=== PATIENT | male | born 1955 | race Caucasian/White ===

== ENCOUNTER 2017-05-14 22:54 | Observation (INO) ==
--- NOTE | 2017-05-14 23:02 | Emergency Department Note ---
Disposition Clinical Impression: CHF (congestive heart failure), Chest pain Disposition: Admitted As Inpatient Condition: Fair Time of Disposition: 02:01 General Adult HPI - General Chief complaint: ED General Medical Stated complaint: high bp swollen ankles salome Time Seen by Provider: 05/14/17 23:01 Source: patient Mode of arrival: ambulatory Limitations: no limitations Nursing Notes Reviewed: Yes Vital Signs Reviewed: Yes - History of Present Illness HPI Narrative: Patient presents to the ED with the chief complaint of high blood pressure, chest pain, shortness of breath and swollen legs. Patient has a history of congestive heart failure, atrial flutter. States that this was recently diagnosed in July 2016. He is on Xarelto , Lasix, blood pressure medication. States he has had 3 ablations for the a flutter. Presenting today for a 3 day history of gradually increasing shortness of breath and leg swelling. States that he is also had some chest heaviness and discomfort intermittently over the last 2 days, nonradiating, worse with exertion. States that he felt like this previously with CHF and wanted to catch it early. Recently moved from [facility] and is now located near [place]. Pain Scale: 7 - Related Data Allergies Allergy/AdvReac Type Severity Reaction Status Date / Time aspirin [ASA] Allergy See Verified 05/14/17 23:00 Comments NSAIDS (Non-Steroidal Allergy See Verified 05/14/17 23:00 Anti-Inflamma Comments Constitutional: Denies: fever Eyes: Denies: vision change Cardiovascular: Reports: chest pain, dyspnea on exertion, edema, paroxysmal nocturnal dyspnea Respiratory: Reports: dyspnea Gastrointestinal: Denies: nausea Musculoskeletal: Denies: back pain Neurological: Denies: headache Past Medical History - Past Medical History Attestation: Yes The following information was validated with the patient. Source: patient Medical history: Reports: CHF, hypertension - Social History Smoking Status: Current every day smoker Alcohol use: Reports: none Drug use: Reports: none Physical Exam - General Limitations: no limitations General appearance: alert, in no apparent distress - Head Head exam: atraumatic, normocephalic, normal inspection - Eye Eye exam: Present: normal appearance, PERRL, EOMI - ENT ENT exam: normal exam, normal oropharynx, mucous membranes moist - Neck Neck exam: Present: normal inspection, full ROM, trachea midline - Chest Chest inspection: Present: normal inspection, symmetric chest wall rise - Respiratory Respiratory exam: Present: other (Decreased breath sounds bilateral bases). Absent: respiratory distress - Cardiovascular Cardiovascular exam: Present: regular rate, normal rhythm, normal heart sounds - Abdominal Exam Abdominal exam: Present: soft, distention. Absent: guarding, rebound, normal bowel sounds - Extremities Exam Extremities exam: Present: normal capillary refill, pedal edema (2+ bilateral) - Neurological Exam Neurological exam: Present: alert, oriented X3 - Psychiatric Psychiatric exam: Present: normal affect, normal mood - Skin Skin exam: Present: warm, dry, intact, normal color Course Course Narrative: 61-year-old male presenting with hypertension, potential CHF exacerbation. We will get labs, x-ray and EKG. Will admit. Vital Signs Temperature 97.6 F 05/14/17 22:56 Pulse Rate 71 05/14/17 22:56 Respiratory Rate 20 05/14/17 22:56 Blood Pressure 203/117 05/14/17 22:56 O2 Sat by Pulse Oximetry 96 05/14/17 22:56 Temperature 97.6 F 05/15/17 03:18 Pulse Rate 55 05/15/17 03:18 Respiratory Rate 16 05/15/17 03:18 Blood Pressure 170/91 05/15/17 03:18 O2 Sat by Pulse Oximetry 95 05/15/17 03:28 Oxygen Delivery Oxygen Delivery Room Air Medical Decision Making - Medical Records Medical records reviewed: Yes I reviewed the patient's medical records. - Lab Data Lab results reviewed: Yes I reviewed the patient's lab results. Result diagrams: 05/14/17 23:20 05/14/17 23:20 Lab Results 05/14/17 05/14/17 05/14/17 Range/Units 23:20 23:20 23:20 WBC 7.3 (4.3-11.1) K/mcL RBC 5.33 (4.19-5.50) M/mcL Hgb 16.0 (12.9-16.9) g/dL Hct 44.9 (37.5-50.1) % MCV 84.2 (83.0-100.0) fL MCH 30.0 (28.0-33.3) pg MCHC 35.6 H (31.6-35.5) g/dL RDW 13.8 (11.5-14.5) % Plt Count 157 (140-400) K/mcL MPV 11.0 (9.4-12.4) fL Immature Gran % 0.5 (0-4) % Seg Neutrophils % 57.5 % Lymphocytes % 31.1 % Monocytes % 8.0 % Eosinophils % 2.1 % Basophils % 0.8 % Neutrophils # 4.2 (1.6-8.9) K/mcL Lymphocytes # 2.3 (0.6-4.6) K/mcL Monocytes # 0.6 (0.0-1.3) K/mcL Eosinophils # 0.2 (0.0-0.6) K/mcL Basophils # 0.1 (0.0-0.2) K/mcL PT 13.1 H (9.4-12.1) Seconds INR 1.2 APTT 35.4 (26.0-36.0) Seconds Sodium 140 (136-145) mEq/L Potassium 4.1 (3.5-4.5) mEq/L Chloride 104 (98-109) mEq/L Carbon Dioxide 27 (19-29) mEq/L BUN 15 (8-26) mg/dL Creatinine 0.97 (0.72-1.25) mg/dL Est GFR ( Amer) > 60 (> 60) Est GFR (Non-Af Amer) > 60 (> 60) BUN/Creatinine Ratio 15 (6-26) Glucose 231 H (70-99) mg/dL Calculated Osmolality 298 (280-300) Calcium 9.6 (8.6-10.8) mg/dL Troponin I (0-0.03) ng/mL B-Natriuretic Peptide (0-100) pg/mL 05/14/17 05/14/17 Range/Units 23:20 23:20 WBC (4.3-11.1) K/mcL RBC (4.19-5.50) M/mcL Hgb (12.9-16.9) g/dL Hct (37.5-50.1) % MCV (83.0-100.0) fL MCH (28.0-33.3) pg MCHC (31.6-35.5) g/dL RDW (11.5-14.5) % Plt Count (140-400) K/mcL MPV (9.4-12.4) fL Immature Gran % (0-4) % Seg Neutrophils % % Lymphocytes % % Monocytes % % Eosinophils % % Basophils % % Neutrophils # (1.6-8.9) K/mcL Lymphocytes # (0.6-4.6) K/mcL Monocytes # (0.0-1.3) K/mcL Eosinophils # (0.0-0.6) K/mcL Basophils # (0.0-0.2) K/mcL PT (9.4-12.1) Seconds INR APTT (26.0-36.0) Seconds Sodium (136-145) mEq/L Potassium (3.5-4.5) mEq/L Chloride (98-109) mEq/L Carbon Dioxide (19-29) mEq/L BUN (8-26) mg/dL Creatinine (0.72-1.25) mg/dL Est GFR ( Amer) (> 60) Est GFR (Non-Af Amer) (> 60) BUN/Creatinine Ratio (6-26) Glucose (70-99) mg/dL Calculated Osmolality (280-300) Calcium (8.6-10.8) mg/dL Troponin I 0.00 (0-0.03) ng/mL B-Natriuretic Peptide 38 (0-100) pg/mL - Radiology Data Radiology results reviewed: Yes I reviewed the patient's radiology results. - EKG Data EKG #1 EKG attestation: Yes I reviewed and interpreted this EKG. EKG results narrative: Sinus rhythm, rate 65, NV interval 155, QRS 106, QTC 446, left axis deviation, slight ST segment depression in V4 and V5, no previous available S.B.A.R. - S.B.A.R. Situation: Demographics, MOA Background: Presenting Complaint, Relevant PMH, Meds, & Allergies Assessment: Vital Signs, Course and respsone to treatment, Exam Concerns, Patient/Family Expectation, Pertinant Lab Results, Outstanding Labs Recommendation: Recommendation based on pending studies, treatments, or consults S.B.A.R. Report Given to: Dr. Amor - needs [facility] S.B.A.R. Repor Time: 02:01 Attestation Statement - Attestation Attestation: I personally interviewed and examined this patient and my medical decision- making was reviewed with the ED Resident Physician, Dr. Robbins. I agree with the documented findings, disposition and treatment plan as described except to the extent set forth below. Patient is a 61-year-old white male with a history of CHF, atrial flutter and hypertension who presents to emergency room stay with 2 day history of gradually worsening shortness of breath and lower extremity edema. Patient has also been experiencing chest tightness with dyspnea on exertion during the same time frame. Patient arrives pain-free here in the ED but is still complaining of some mild shortness of breath edema and abdominal bloating. Agree patient's physical exam findings as documented. EKG did not show any acute ST or T-wave changes, sinus rhythm. Chest x-ray showed mild CHF and cardiomegaly. Patient was given aspirin and nitroglycerin and Lasix here in the ER as well as abdominal O2. He was in no acute distress on arrival. No signs of respiratory distress. Patient was admitted for chest tightness, elevated blood pressure, and acute exacerbation of CHF.
[2017-05-14 23:34] LABS: Basophils # 0.1 K/mcL (0.0-0.2); Basophils % 0.8 %; Eosinophils # 0.2 K/mcL (0.0-0.6); Eosinophils % 2.1 %; Hematocrit 44.9 % (37.5-50.1); Immature Granulocytes % 0.5 % (0-4); Lymphocytes # 2.3 K/mcL (0.6-4.6); Lymphocytes % 31.1 %; Mean Corpuscular HGB Conc 35.6 g/dL (31.6-35.5); Mean Corpuscular Volume 84.2 fL (83.0-100.0); Monocytes # 0.6 K/mcL (0.0-1.3); Neutrophils # 4.2 K/mcL (1.6-8.9); Platelet Count 157 K/mcL (140-400); Red Blood Count 5.33 M/mcL (4.19-5.50); Red Cell Distribution Width 13.8 % (11.5-14.5); Segmented Neutrophils % 57.5 %
[2017-05-14 23:41] LABS: INR 1.2; Prothrombin Time 13.1 Seconds (9.4-12.1)
[2017-05-14 23:43] LABS: Activated Partial Thrombo Time 35.4 Seconds (26.0-36.0)
[2017-05-14 23:50] LABS: BUN/Creatinine Ratio 15 (6-26); Blood Urea Nitrogen 15 mg/dL (8-26); Calcium 9.6 mg/dL (8.6-10.8); Carbon Dioxide 27 mEq/L (19-29); Chloride 104 mEq/L (98-109); Glucose 231 mg/dL (70-99); Osmolality,Calculated 298 (280-300); Potassium 4.1 mEq/L (3.5-4.5); Sodium 140 mEq/L (136-145); eGFR For African Americans > 60 (> 60); eGFR For Non-African Americans > 60 (> 60)
[2017-05-14] MEDS ORDERED: Aspirin 325 MG TABLET PO ONE (23:55)
[2017-05-15] MEDS: Nitroglycerin 0.4 MG TAB.SUBL SL PRN ×2 (00:27→00:32)
[2017-05-15] MEDS ORDERED: *HR* OxyCODONE/APAP 10/325 TABLET PO ONE (02:11)
[2017-05-15] MEDS ORDERED: Naloxone 0.4 MG/ML INJ IVP PRN (05:14)
--- NOTE | 2017-05-15 05:20 | Internal Med History&Physical ---
Date of Encounter: 05/15/17 Time of Encounter: 05:20 Assessment and Plan (1) Accelerated hypertension Current visit: Yes Status: Acute Pt had BP of 201/117 in the ER, which improved with nitroglycerine - will increase the dose of losartan to 100 mg (home dose 50 mg /day). Continue carvedilol and ISMN. Acute antihypertensives, to control BP. (2) Chest tightness or pressure Current visit: Yes Status: Acute Pt had prior workup at [facility], [place], [place] and - requested medical records from [facility]. Trend troponins. Echocardiogram. Further w/u based on the results. If troponins remain negative - can f/u with his primary bag tester (3) Atelectasis Current visit: Yes Status: Acute Treat with Incentive spirometer. Could be responsible for chest pressure and SOB. (4) Hyperglycemia Current visit: Yes Status: Acute Check Hemoglobin A1C. ADA diet (5) CHF (congestive heart failure) Current visit: Yes Status: Chronic Treat with IV lasix and continue home dose. Echocardiogram Qualifiers: Congestive heart failure type: unspecified congestive heart failure type Congestive heart failure chronicity: acute on chronic Qualified Code(s): I50.9 - Heart failure, unspecified (6) Chronic anticoagulation Current visit: Yes Status: Chronic Pt is on chronic anticoagulation for A.Fib/flutter. continue xarelto (7) Nicotine dependence Current visit: Yes Status: Chronic Pt declines nicotine patch Qualifiers: Nicotine product type: cigarettes Substance use status: unspecified nicotine-induced disorder Qualified Code(s): F17.219 - Nicotine dependence, cigarettes, with unspecified nicotine-induced disorders Internal Medicine - H&P: HPI Chief complaint: Elevated blood pressure Admitted From: Emergency Dept Plans for Post Hospital Care: Home History of present illness: Mr. Cohen is a 61 year old male with h/o HTN, CHF, Atrial flutter / fibrillation s/p ablation x 4 and cardioversions on anticoagulation with xarelto. Patient reports that his blood pressure has been high for the last 2 days, systolic blood pressures remain in 170s and diastolic in the 90s. This is unusual for him. He apparently was told by his doctor in the past to keep his blood pressure less than 140/80. He also noticed some swelling of the ankles for 2 days. Reports chest pressure in the central chest, 4/10 and is fairly constant, nonradiating, and related to exertion for 2 days. He reports exertional shortness of breath. He denies nausea, vomiting, palpitations, cough , fever, abdominal pain, dysuria, hematuria, change in bowel habits. He was concerned about his elevated blood pressure unwanted to be checked - initially went to [facility], which was closed and hence presented to [facility]. His BP was 201/117 in the ER, which improved with nitroglycerine. He is admitted to the hospitalist service for further workup and management. Past Med Surg Social Fam HX - Past Medical History Medical history: CHF, hypertension - Past Surgical History Surgical History: appendectomy - Social History Smoking Status: Current every day smoker Smokeless Tobacco Status: No Alcohol use: none Drug use: none - Family History Mother Hx Family Endocrine Disorder: Yes (DM) Internal Medicine - H&P: Meds Atorvastatin 40 mg PO DAILY 05/15/17 [History] Carvedilol [Coreg] 25 mg PO BID 05/15/17 [History] Furosemide [Lasix] 40 mg PO DAILY 05/15/17 [History] Gabapentin [Neurontin] 800 mg PO QID 05/15/17 [History] Isosorbide MONOnitrate [Isosorbide Mononitrate ER] 120 mg PO DAILY 05/15/17 [ History] Losartan [Cozaar] 50 mg PO DAILY 05/15/17 [History] Morphine Immed Rel [Morphine Sulfate] 15 mg PO TID PRN 05/15/17 [History] OxyCODONE/APAP 10/325 [Percocet 10/325 MG] 1 each PO QID PRN 05/15/17 [History] Potassium Chloride [Klor-Con 10] 10 meq PO DAILY 05/15/17 [History] Rivaroxaban [Xarelto] 20 mg PO DAILY 05/15/17 [History] Allergies aspirin [ASA] Allergy (Verified 05/14/17 23:00) See Comments NSAIDS (Non-Steroidal Anti-Inflamma Allergy (Verified 05/14/17 23:00) See Comments All Systems PM: A 10-system review of systems was performed and is negative for pertinent findings except as documented above in the HPI. - Constitutional Vitals: Temp Pulse Resp BP Pulse Ox 97.6 F 55 16 170/91 95 05/15/17 03:18 05/15/17 03:18 05/15/17 03:18 05/15/17 03:18 05/15/17 03:28 Exam: General: Not in acute distress at the time of my evaluation HEENT: Oral mucosa is moist. No conjunctival palor or scleral icterus Neck: No obvious neck swellings Lungs: Clear to auscultation Cardiac: Regular rate and rhythm. No significant murmurs Abdomen: Soft, non tender. Bowel sounds present Genitourinary: No concepcion catheter Neurological: Alert and oriented. No gross localizing deficits Psych: Not aggressive or agitated Extremities: Trace-mild b/l leg edema present Skin: No generalized rash Internal Med - H&P Results - Labs CBC & Chem 7: 05/14/17 23:20 05/14/17 23:20 - EKG Data -: EKG Interpreted by Myself EKG shows normal: sinus rhythm - EKG Data EKG comments: T wave inversion in AVL 05/15/17 06:16 - Impressions ITS Impressions Chest X-Ray 05/14/17 23:08 IMPRESSION: 1. Elevation or eventration of left hemidiaphragm with associated basilar atelectasis. 2. Cardiomegaly with mild central prominence/vascular congestion. 3. Mild anterior wedging of multiple lower thoracic vertebral bodies, age indeterminate, likely chronic. D/ / Antony Crandall MD / Antony Crandall MD Interpreting Provider: Antony Crandall MD - VTE Reasons for not Prescribing Prophylaxis: Not indicated-Anticoagulated or INR therapeutic
[2017-05-15] MEDS ORDERED: *HR* Morphine Immed Rel 15 MG TABLET PO PRN (05:55)
[2017-05-15] MEDS ORDERED: Furosemide 20 MG/2 ML VIAL IVP ONE (05:58)
[2017-05-15 07:49] LABS: Hemoglobin A1C 7.8 %
[2017-05-15 07:51] LABS: Chol/HDL Ratio 3.3 (0-4.9); Magnesium 1.6 mg/dL (1.6-2.6)
[2017-05-15] MEDS: Isosorbide MONOnitrate (24 HR) 60 MG TAB.ER.24H PO SCH (08:00)
[2017-05-15] MEDS: Furosemide 40 MG TABLET PO SCH (08:00)
[2017-05-15] MEDS: *HR* Rivaroxaban 10 MG TABLET PO SCH (08:00)
[2017-05-15] MEDS: Gabapentin 400 MG CAPSULE PO SCH ×4 (08:00→20:09)
[2017-05-15] MEDS: *HR* OxyCODONE/APAP 10/325 TABLET PO PRN ×3 (08:05→20:09)
--- NOTE | 2017-05-15 11:27 | Event Note ---
Date of Encounter: 05/15/17 Time of Encounter: 09:30 Patient seen and examined. On examination, patient ambulating around his room stating use Gatorade to take a shower. He states the swelling in his legs has gone down considerably since yesterday. He endorses mild shortness of breath with exertion but he states that he is close to his baseline. He complains of his chronic leg pain but denies chest pain. Chest x-ray revealing bilateral atelectasis with mild CHF. Troponins negative 2. Blood pressure uncontrolled and his losartan was increased this morning, will trend. Echocardiogram is pending. Chart from [facility] has not been received at this point. We will continue to trend blood pressure and monitor. On examination, lungs slightly decreased but no increased respiratory effort and fair to good aeration throughout. Trace, nonpitting pedal edema noted. ITS Impressions Chest X-Ray 05/14/17 23:08 IMPRESSION: 1. Elevation or eventration of the left hemidiaphragm with associated basilar atelectasis. 2. Cardiomegaly with mild central prominence/vascular congestion. 3. Mild anterior wedging of multiple lower thoracic vertebral bodies, age indeterminate, likely chronic. D/ / 05/15/2017 07:03:38 Antony Crandall MD / carlos Interpreting Provider: Antony Crandall MD
[2017-05-15] MEDS: *HR* Morphine Immed Rel 30 MG TABLET PO PRN ×2 (11:59→22:19)
[2017-05-16] MEDS: *HR* OxyCODONE/APAP 10/325 TABLET PO PRN ×2 (03:39→09:51)
[2017-05-16] MEDS: *HR* Morphine Immed Rel 30 MG TABLET PO PRN (06:51)
[2017-05-16] MEDS: *HR* Rivaroxaban 10 MG TABLET PO SCH (08:27)
[2017-05-16] MEDS: Furosemide 40 MG TABLET PO SCH (08:27)
[2017-05-16] MEDS: Gabapentin 400 MG CAPSULE PO SCH (08:27)
[2017-05-16] MEDS: Isosorbide MONOnitrate (24 HR) 60 MG TAB.ER.24H PO SCH (08:28)
[2017-05-16 11:04] VITALS: BP 119/71
--- NOTE | 2017-05-16 11:11 | Discharge Summary ---
Date of Encounter: 05/16/17 Time of Encounter: 10:30 - Discharge Diagnosis (1) Chest pain Priority: Primary Status: Resolved Comments: Patient denied chest pain or shortness of breath above his normal throughout this admission. Troponins negative 3. Echocardiogram unchanged from prior echocardiogram. Follow-up outpatient. (2) CHF (congestive heart failure) Priority: Secondary Status: Chronic Comments: Echo revealing EF of 55-60% with moderate diastolic dysfunction. He was successfully diuresed and is back to his baseline. Acute on chronic diastolic heart failure. Qualifiers: Congestive heart failure type: diastolic Congestive heart failure chronicity: acute on chronic Qualified Code(s): I50.33 - Acute on chronic diastolic (congestive) heart failure (3) Hyperglycemia Priority: Primary Status: Chronic Comments: Likely new diagnosis of diabetes, A1c 7.8%. In review of his chart from [facility]- he has not been diagnosed prior. Will defer to his primary care provider for outpatient follow-up. (4) Newly diagnosed diabetes Priority: Primary Status: Acute (5) Accelerated hypertension Priority: Primary Status: Resolved (6) HTN (hypertension) Priority: Secondary Status: Chronic Comments: Controlled with an increase in his losartan. Check blood pressure daily and follow up outpatient (7) Atelectasis Priority: Primary Status: Acute Comments: Treated with incentive spirometry. No oxygen requirement or shortness of breath above his norm on day of discharge (8) Chronic anticoagulation Priority: Secondary Status: Chronic Comments: Continue Xarelto (9) Nicotine dependence Priority: Secondary Status: Chronic Comments: Declines counseling Qualifiers: Nicotine product type: cigarettes Substance use status: unspecified nicotine-induced disorder Qualified Code(s): F17.219 - Nicotine dependence, cigarettes, with unspecified nicotine-induced disorders - Discharge Medications Prescriptions: Losartan [Cozaar] 100 mg PO DAILY #120 tab Home Medications: Atorvastatin [Lipitor] 40 mg PO HS 05/15/17 [History] Carvedilol [Coreg] 25 mg PO BID 05/15/17 [History] Furosemide [Lasix] 40 mg PO DAILY 05/15/17 [History] Gabapentin [Neurontin] 800 mg PO QID 05/15/17 [History] Isosorbide MONOnitrate [Isosorbide Mononitrate ER] 120 mg PO DAILY 05/15/17 [ History] Morphine Immed Rel [Morphine Sulfate] 15 mg PO TID PRN 05/15/17 [History] OxyCODONE/APAP 10/325 [Percocet 10/325 MG] 1 each PO QID PRN 05/15/17 [History] Potassium Chloride [Klor-Con 10] 10 meq PO DAILY 05/15/17 [History] Rivaroxaban [Xarelto] 20 mg PO DAILY 05/15/17 [History] Losartan [Cozaar] 100 mg PO DAILY #120 tab 05/16/17 [Rx] Allergies/Adverse Reactions: Allergies aspirin [ASA] Allergy (Verified 05/14/17 23:00) See Comments NSAIDS (Non-Steroidal Anti-Inflamma Allergy (Verified 05/14/17 23:00) See Comments Procedures/tests Complete & Pending: Procedures Performed prior 72 hours Category Date Time Status EV echocardiogram Routine Y 05/16/17 05:17 Completed Date of admission: 05/15/17 02:13 [facility] care [facility] Discharging clinician: Mena Camacho Anticipated date of discharge: 05/16/17 - Patient Status Disposition: Home, Self-Care Condition: Good Functional capacity at discharge: independent ambulation Overall status at discharge: patient is back to baseline - Discharge Instructions Follow Up With: [facility] [Primary Care Provider] - Additional Instructions: Follow-up with primary care provider within one to 2 weeks, check blood pressure daily and keep a log - Diet and Activity Activity: increase activity as tolerated Diet: diabetic diet, low fat, low cholesterol, low salt diet Hospital course: Mr. Cohen is a 61 year old male with past medical history of hypertension, diastolic heart failure, atrial flutter/fibrillation status post ablation 4 and cardioversions on chronic anticoagulation with Xarelto, tobacco abuse. Patient presented to the emergency department chief complaint of elevated blood pressure 2 days with his systolic blood pressures in the 170s and diastolic in the 90s. Patient stating he was told by his primary care provider to keep his blood pressure less than 140/80. He also noted swelling in his ankles for 2 days prior to presentation associated with chest pressure and a central trust that did not radiate but was related to exertion. He also endorsed dyspnea on exertion. He denied nausea vomiting, palpitations, cough, abdominal pain. He patient initially went to the [facility] but was closed so he was sent to [facility]'s emergency Department. Initial blood pressure 201/117 which improved with nitroglycerin. Chest x-ray consistent with atelectasis and mild vascular congestion. Patient was admitted to the hospitalist service for further evaluation and management. Patient had an echocardiogram that revealed an ejection fraction of 55% and moderate diastolic dysfunction with mild pulmonary hypertension. He has never been to [facility] prior to this visit. He states that he sees the [place] but most of his care is done at [facility]. I received his records from [facility] and he had an echocardiogram in December 2016 that was unchanged from today's echo. He also had a heart catheter on 08/16/2016 that revealed nonobstructive CAD with recommendation of aggressive medical therapy. Patient remained chest pain-free throughout this admission. Scant amount of pedal edema present on admission resolved overnight. He was given a one-time dose of 10 mg of IV Lasix and then his home dosing of 40 mg by mouth daily was continued. He was successfully diuresed and back to his baseline. Troponins negative 3. No changes to his echocardiogram. Low suspicion for acute coronary syndrome. Regarding risk factor modification, his losartan dosage was increased and he was normotensive on the discharge and he was instructed to check his blood pressure daily and follow up outpatient. He was also noted to be hyperglycemic so an A1c was checked which was 7.8%. In review of his chart at [facility], it does not appear as if he has been diagnosed since this is a new diagnosis for him. Discussed various treatment modalities however the patient stated that he would rather follow-up with his primary care provider before deciding on how to treat his new onset of diabetes. He was discharged home in stable condition with close outpatient follow-up recommended. ITS Impressions Chest X-Ray 05/14/17 23:08 IMPRESSION: 1. Elevation or eventration of the left hemidiaphragm with associated basilar atelectasis. 2. Cardiomegaly with mild central prominence/vascular congestion. 3. Mild anterior wedging of multiple lower thoracic vertebral bodies, age indeterminate, likely chronic. D/ / 05/15/2017 07:03:38 Antony Crandall MD / carlos Interpreting Provider: Antony Crandall MD Echocardiogram impressions: Normal LV systolic function, LVEF 55%. Moderate concentric left ventricular hypertrophy. Moderate left ventricular diastolic dysfunction. Normal right ventricular size and function. No significant valvular dysfunction. Mild pulmonary hypertension. Estimated RVSP is 39 mmHg. - Time Spent with Patient Total time spent providing and/or coordinating discharge services: - Constitutional Vitals: Temp Pulse Resp BP Pulse Ox 98.0 F 60 16 119/71 94 05/16/17 11:00 05/16/17 11:00 05/16/17 11:00 05/16/17 11:00 05/16/17 11:00 General appearance: Present: A&O X 3, pleasant, no acute distress, answers questions appropriately - Head Head exam: Present: atraumatic, normocephalic - Eye Eye exam: Present: PERRL, conjuntiva pink, sclera anicteric Pupils: Present: PERRL - Neck Neck exam general surgery: Present: supple, trachea midline. Absent: lymphadenopathy - Respiratory Respiratory exam: Present: decreased breath sounds. Absent: accessory muscle use, rales, respiratory distress, rhonchi, wheezes - Cardiovascular Cardiovascular exam: Present: RRR, +S1, +S2. Absent: diastolic murmur, gallop, rubs, systolic murmur - GI/Abdominal GI/Abdominal exam: Present: normal bowel sounds, soft, no peritoneal signs. Absent: distended, tenderness - Extremities Exam Extremities exam: Present: warm, radial pulses palpable and symetrical. Absent : calf tenderness, cyanotic, pedal edema - Neurological Exam Neurological exam: Present: alert, CN II-XII intact, normal gait, oriented X3, no focal deficits, strengths equal and symetr throughout. Absent: pronater drift, facial droop, speech deficit - Skin Skin exam: Present: dry, intact, normal color, warm - VTE Reasons for not Prescribing Prophylaxis: Not indicated-Anticoagulated or INR therapeutic
--- NOTE | 2017-05-16 15:19 | Electrocardiograph Report ---
[place] [id number] Test Date: 2017-05-14 Pat Name: Anjel Cohen Department: 104 Room: 3B Gender: M Prize Jacker: NATE : 1955 Requested By: Manjit Robbins Order Number: [id number] Reading MD: Gaston Gannon MD Measurements Intervals [place] Rate: 65 P: 68 MD: 155 QRS: -7 QRSD: 106 T: 79 QT: 434 QTc: 446 Interpretive Statements SINUS RHYTHM LEFT VENTRICULAR HYPERTROPHY AND ST-T CHANGE Electronically Signed On 05-16-2017 15:17:54 EDT by Gaston Gannon MD
== END 2017-05-16 13:01 | disposition home or self-care (01) ==
LOC: 3BNU 22:54 → EMEROO 22:54 → SUATTDRO 05-15 02:13 → 3BNU 05-15 02:36
PROVIDERS: ADMIT Internal Medicine; ATTEND Nurse Practitioner Family

== ENCOUNTER 2017-08-18 20:43 | Inpatient (IN) ==
--- NOTE | 2017-08-18 20:58 | Emergency Department Note ---
Disposition Clinical Impression: Exertional dyspnea, Chest pain Disposition: Admitted As Inpatient Condition: Good General Adult HPI - General Chief complaint: ED Chest Pain Stated complaint: sob Time Seen by Provider: 08/18/17 20:51 Source: patient Limitations: no limitations - History of Present Illness Pain Scale: 8 - Related Data Home Medications Medication Instructions Recorded Confirmed Atorvastatin [Lipitor] 40 mg PO HS 05/15/17 08/18/17 Carvedilol [Coreg] 25 mg PO BID 05/15/17 08/18/17 Furosemide [Lasix] 40 mg PO DAILY 05/15/17 08/18/17 Gabapentin [Neurontin] 800 mg PO QID 05/15/17 08/18/17 Isosorbide MONOnitrate [Isosorbide 120 mg PO DAILY 05/15/17 08/18/17 Mononitrate ER] Potassium Chloride [Klor-Con 10] 10 meq PO DAILY 05/15/17 08/18/17 Rivaroxaban [Xarelto] 20 mg PO DAILY 05/15/17 08/18/17 Insulin Glargine [Lantus] 26 unit SQ HS 08/18/17 08/18/17 Losartan Potassium [Cozaar] 50 mg PO BID 08/18/17 08/18/17 Metformin HCl [Glucophage] 1,000 mg PO BID 08/18/17 08/18/17 Oxycodone HCl 10 mg PO Q6H PRN 08/18/17 08/18/17 Allergies Allergy/AdvReac Type Severity Reaction Status Date / Time aspirin [ASA] Allergy See Verified 08/18/17 20:50 Comments NSAIDS (Non-Steroidal Allergy See Verified 08/18/17 20:50 Anti-Inflamma Comments acetaminophen [From Tylenol] AdvReac See Verified 08/18/17 22:14 Comments Past Medical History - Past Medical History Medical history: Reports: CHF, hypertension Surgical history: Reports: appendectomy Psychiatric history: Reports: no psych history - Social History Smoking Status: Current every day smoker Smokeless Tobacco Status: No Alcohol use: Reports: none Drug use: Reports: none Physical Exam - General Limitations: no limitations General appearance: alert Course Vital Signs Temperature 97.6 F 08/18/17 20:44 Pulse Rate 108 08/18/17 20:44 Respiratory Rate 20 08/18/17 20:44 Blood Pressure 181/94 08/18/17 20:44 O2 Sat by Pulse Oximetry 95 08/18/17 20:44 Temperature 97.6 F 08/18/17 20:44 Pulse Rate 80 08/18/17 21:43 Respiratory Rate 18 08/18/17 21:43 Blood Pressure 158/93 08/18/17 21:43 O2 Sat by Pulse Oximetry 95 08/18/17 21:43 Oxygen Delivery Oxygen Delivery Room Air Medical Decision Making - Lab Data Result diagrams: 08/18/17 21:02 08/18/17 21:02 Lab Results 08/18/17 08/18/17 08/18/17 Range/Units 21:02 21:02 21:02 WBC 6.8 (4.3-11.1) K/mcL RBC 4.92 (4.19-5.50) M/mcL Hgb 15.2 (12.9-16.9) g/dL Hct 42.3 (37.5-50.1) % MCV 86.0 (83.0-100.0) fL MCH 30.9 (28.0-33.3) pg MCHC 35.9 H (31.6-35.5) g/dL RDW 16.2 H (11.5-14.5) % Plt Count 189 (140-400) K/mcL MPV 10.6 (9.4-12.4) fL Immature Gran % 0.9 (0-4) % Seg Neutrophils % 64.7 % Lymphocytes % 24.9 % Monocytes % 7.5 % Eosinophils % 1.3 % Basophils % 0.7 % Neutrophils # 4.4 (1.6-8.9) K/mcL Lymphocytes # 1.7 (0.6-4.6) K/mcL Monocytes # 0.5 (0.0-1.3) K/mcL Eosinophils # 0.1 (0.0-0.6) K/mcL Basophils # 0.1 (0.0-0.2) K/mcL PT 13.0 H (9.4-12.1) Seconds INR 1.2 APTT 34.4 (26.0-36.0) Seconds D-Dimer (0-500) ng/mLFEU Sodium 136 (136-145) mEq/L Potassium 4.1 (3.5-4.5) mEq/L Chloride 100 (98-109) mEq/L Carbon Dioxide 24 (19-29) mEq/L BUN 19 (8-26) mg/dL Creatinine 1.21 (0.72-1.25) mg/dL Est GFR ( Amer) > 60 (> 60) Est GFR (Non-Af Amer) > 60 (> 60) BUN/Creatinine Ratio 16 (6-26) Glucose 501 H* (70-99) mg/dL Calculated Osmolality 307 H (280-300) Calcium 9.6 (8.6-10.8) mg/dL Troponin I (0-0.03) ng/mL B-Natriuretic Peptide (0-100) pg/mL Beta-Hydroxybutyric Acd (0.02-0.27) mmol/L 08/18/17 08/18/17 08/18/17 Range/Units 21:02 21:02 21:02 WBC (4.3-11.1) K/mcL RBC (4.19-5.50) M/mcL Hgb (12.9-16.9) g/dL Hct (37.5-50.1) % MCV (83.0-100.0) fL MCH (28.0-33.3) pg MCHC (31.6-35.5) g/dL RDW (11.5-14.5) % Plt Count (140-400) K/mcL MPV (9.4-12.4) fL Immature Gran % (0-4) % Seg Neutrophils % % Lymphocytes % % Monocytes % % Eosinophils % % Basophils % % Neutrophils # (1.6-8.9) K/mcL Lymphocytes # (0.6-4.6) K/mcL Monocytes # (0.0-1.3) K/mcL Eosinophils # (0.0-0.6) K/mcL Basophils # (0.0-0.2) K/mcL PT (9.4-12.1) Seconds INR APTT (26.0-36.0) Seconds D-Dimer 410 (0-500) ng/mLFEU Sodium (136-145) mEq/L Potassium (3.5-4.5) mEq/L Chloride (98-109) mEq/L Carbon Dioxide (19-29) mEq/L BUN (8-26) mg/dL Creatinine (0.72-1.25) mg/dL Est GFR ( Amer) (> 60) Est GFR (Non-Af Amer) (> 60) BUN/Creatinine Ratio (6-26) Glucose (70-99) mg/dL Calculated Osmolality (280-300) Calcium (8.6-10.8) mg/dL Troponin I 0.00 (0-0.03) ng/mL B-Natriuretic Peptide 28 (0-100) pg/mL Beta-Hydroxybutyric Acd (0.02-0.27) mmol/L 08/18/17 Range/Units 21:02 WBC (4.3-11.1) K/mcL RBC (4.19-5.50) M/mcL Hgb (12.9-16.9) g/dL Hct (37.5-50.1) % MCV (83.0-100.0) fL MCH (28.0-33.3) pg MCHC (31.6-35.5) g/dL RDW (11.5-14.5) % Plt Count (140-400) K/mcL MPV (9.4-12.4) fL Immature Gran % (0-4) % Seg Neutrophils % % Lymphocytes % % Monocytes % % Eosinophils % % Basophils % % Neutrophils # (1.6-8.9) K/mcL Lymphocytes # (0.6-4.6) K/mcL Monocytes # (0.0-1.3) K/mcL Eosinophils # (0.0-0.6) K/mcL Basophils # (0.0-0.2) K/mcL PT (9.4-12.1) Seconds INR APTT (26.0-36.0) Seconds D-Dimer (0-500) ng/mLFEU Sodium (136-145) mEq/L Potassium (3.5-4.5) mEq/L Chloride (98-109) mEq/L Carbon Dioxide (19-29) mEq/L BUN (8-26) mg/dL Creatinine (0.72-1.25) mg/dL Est GFR ( Amer) (> 60) Est GFR (Non-Af Amer) (> 60) BUN/Creatinine Ratio (6-26) Glucose (70-99) mg/dL Calculated Osmolality (280-300) Calcium (8.6-10.8) mg/dL Troponin I (0-0.03) ng/mL B-Natriuretic Peptide (0-100) pg/mL Beta-Hydroxybutyric Acd 0.26 (0.02-0.27) mmol/L Attestation Statement - Attestation Attestation: I examined this patient and my medical decision-making was reviewed with the Resident Physician. I agree with the documented findings, disposition and treatment plan as described except to the extent set forth below. [id number] time provided Patient complains of exertional dyspnea for the past one month. He also notes left shoulder pain that radiates into his chest. He underwent outpatient CT of his left shoulder several days ago. I have reviewed the transcribed report from the CT left shoulder dated 08/12/17 and see the patient has a rotator cuff tear and bursitis. EKG reviewed by me showing sinus tachycardia. Patient mildly dyspneic on exam
[2017-08-18 21:11] LABS: Basophils # 0.1 K/mcL (0.0-0.2); Basophils % 0.7 %; Eosinophils # 0.1 K/mcL (0.0-0.6); Eosinophils % 1.3 %; Hematocrit 42.3 % (37.5-50.1); Hemoglobin 15.2 g/dL (12.9-16.9); Immature Granulocytes % 0.9 % (0-4); Lymphocytes # 1.7 K/mcL (0.6-4.6); Lymphocytes % 24.9 %; Mean Corpuscular HGB Conc 35.9 g/dL (31.6-35.5); Mean Corpuscular Hemoglobin 30.9 pg (28.0-33.3); Mean Platelet Volume 10.6 fL (9.4-12.4); Monocytes # 0.5 K/mcL (0.0-1.3); Monocytes % 7.5 %; Neutrophils # 4.4 K/mcL (1.6-8.9); Platelet Count 189 K/mcL (140-400); Red Blood Count 4.92 M/mcL (4.19-5.50); Red Cell Distribution Width 16.2 % (11.5-14.5); Segmented Neutrophils % 64.7 %
[2017-08-18 21:19] LABS: INR 1.2
[2017-08-18 21:22] LABS: Activated Partial Thrombo Time 34.4 Seconds (26.0-36.0)
[2017-08-18 21:29] LABS: BUN/Creatinine Ratio 16 (6-26); Blood Urea Nitrogen 19 mg/dL (8-26); Calcium 9.6 mg/dL (8.6-10.8); Carbon Dioxide 24 mEq/L (19-29); Chloride 100 mEq/L (98-109); Osmolality,Calculated 307 (280-300); Potassium 4.1 mEq/L (3.5-4.5); Sodium 136 mEq/L (136-145); eGFR For African Americans > 60 (> 60); eGFR For Non-African Americans > 60 (> 60)
[2017-08-18 21:33] LABS: Glucose 501 mg/dL (70-99)
[2017-08-18] MEDS ORDERED: 0.9 % Sodium Chloride 1,000 ML IVC ONE (21:33)
[2017-08-18] MEDS ORDERED: Insulin Regular, Human 100 UNIT/ML IV ONE (21:33)
--- NOTE | 2017-08-18 21:47 | Emergency Department Note ---
Disposition Clinical Impression: Exertional dyspnea Chest pain Qualifiers: Chest pain type: unspecified Qualified Code(s): R07.9 - Chest pain, unspecified Disposition: Admitted As Inpatient Condition: Good [facility]errals: [facility] [Primary Care Provider[facility] - Forms: ED Satisfaction Letter Time of Disposition: 22:05 General Adult HPI - General Chief complaint: ED Chest Pain Stated complaint: sob Time Seen by Provider: 08/18/17 20:51 Source: patient Limitations: no limitations Nursing Notes Reviewed: Yes Vital Signs Reviewed: Yes - History of Present Illness HPI Narrative: 62-year-old male presenting to the emergency Department chief complaint of left shoulder pain radiating to his chest and increasing shortness of breath. Patient states he has had left shoulder pain for approximately 3 months and has gotten an MRI as an outpatient but has not received any results. Patient also states he has been having progressive dyspnea on exertion for the past month. He states his symptoms have progressively been getting worse. He is concerned that all of these symptoms are related to his left shoulder pain causing him to be so uncomfortable he cannot sleep. He does have a significant past medical history of congestive heart failure and diabetes for which he is on metformin. He also states he has a history of atrial flutter which he takes xarelto for. Pain Scale: 7 - Related Data Home Medications Medication Instructions Recorded Confirmed Atorvastatin [Lipitor] 40 mg PO HS 05/15/17 05/15/17 Carvedilol [Coreg] 25 mg PO BID 05/15/17 05/15/17 Furosemide [Lasix] 40 mg PO DAILY 05/15/17 05/15/17 Gabapentin [Neurontin] 800 mg PO QID 05/15/17 05/15/17 Isosorbide MONOnitrate [Isosorbide 120 mg PO DAILY 05/15/17 05/15/17 Mononitrate ER] Morphine Immed Rel [Morphine 15 mg PO TID PRN 05/15/17 05/15/17 Sulfate] OxyCODONE/APAP 10/325 [Percocet 1 each PO QID PRN 05/15/17 05/15/17 10/325 MG] Potassium Chloride [Klor-Con 10] 10 meq PO DAILY 05/15/17 05/15/17 Rivaroxaban [Xarelto] 20 mg PO DAILY 05/15/17 05/15/17 Previous Rx's Medication Instructions Recorded Losartan [Cozaar] 100 mg PO DAILY #120 tab 05/16/17 Allergies Allergy/AdvReac Type Severity Reaction Status Date / Time aspirin [ASA] Allergy See Verified 08/18/17 20:50 Comments NSAIDS (Non-Steroidal Allergy See Verified 08/18/17 20:50 Anti-Inflamma Comments All systems ED: reviewed and negative except as stated. Constitutional: Denies: fever, chills, weakness Eyes: Reports: as per HPI ENT ED: Reports: as per HPI Cardiovascular: Reports: chest pain, dyspnea on exertion. Denies: palpitations Respiratory: Reports: dyspnea. Denies: cough, wheezes, hemoptysis Gastrointestinal: Reports: as per HPI Genitourinary: Reports: as per HPI Musculoskeletal: Reports: other (Left shoulder pain) Integumentary: Reports: as per HPI Neurological: Denies: weakness, numbness, paresthesias Psychiatric: Reports: as per HPI Endocrine: Reports: as per HPI Hematological/Lymphatic: Reports: as per HPI Allergic/Immunologic: Reports: as per HPI Past Medical History - Past Medical History Attestation: Yes The following information was validated with the patient. Medical history: Reports: CHF, hypertension Surgical history: Reports: appendectomy Psychiatric history: Reports: no psych history - Social History Smoking Status: Current every day smoker Smokeless Tobacco Status: No Alcohol use: Reports: none Drug use: Reports: none Physical Exam - General Limitations: no limitations General appearance: alert, in no apparent distress - Head Head exam: atraumatic, normocephalic, normal inspection - Chest Chest inspection: Present: normal inspection, symmetric chest wall rise. Absent : tenderness, rash - Respiratory Respiratory exam: Present: other (Decreased lung sounds bilaterally and the posterior lawrence). Absent: respiratory distress, wheezes - Cardiovascular Cardiovascular exam: Present: normal rhythm, tachycardia, normal heart sounds - Abdominal Exam Abdominal exam: Present: soft, Non-Tender. Absent: distention, guarding, rebound - Extremities Exam Extremities exam: Present: other (Pain to palpation over the left shoulder. Decreased muscle strength noted over the left shoulder due to pain. Sensation intact bilateral upper extremities. Distal pulses 2+ in bilateral upper extremities. No crepitus or dislocation seen) - Neurological Exam Neurological exam: Present: alert, oriented X3 - Psychiatric Psychiatric exam: Present: normal affect, normal mood - Skin Skin exam: Present: warm, intact Course Course Narrative: 62-year-old male presenting to the emergency department with chief complaint of left shoulder pain and dyspnea on exertion. Patient recently had an MRI of the left shoulder which were able to obtain which showed a full-thickness rotator cuff tear. At this time I am more concerned with the exertional chest pain and dyspnea. Patient has a long-standing history of CHF and cardiac arrhythmia. We will perform a cardiac workup. Disposition most likely admission pending results. - Reevaluation(s) Reevaluation #1: All initial lab work came back within normal limits. Glucose shown to be over 500. We will add a serum ketone level at this time. Patient denies polydipsia or polyuria. Patient is alert and oriented 3 in the room at this time. He is slightly tachycardic but otherwise vital signs are within normal limits Time: 22:04 Reevaluation #2: Patient's serum ketones within normal limits. We will admit the patient to the hospitalist now. Hospitalist Dr. Sibley accepts the patient at this time. Time: 22:05 Vital Signs Temperature 97.6 F 08/18/17 20:44 Pulse Rate 108 08/18/17 20:44 Respiratory Rate 20 08/18/17 20:44 Blood Pressure 181/94 08/18/17 20:44 O2 Sat by Pulse Oximetry 95 08/18/17 20:44 Temperature 97.6 F 08/18/17 20:44 Pulse Rate 80 08/18/17 21:43 Respiratory Rate 18 08/18/17 21:43 Blood Pressure 158/93 08/18/17 21:43 O2 Sat by Pulse Oximetry 95 08/18/17 21:43 Oxygen Delivery Oxygen Delivery Room Air Medical Decision Making - Lab Data Result diagrams: 08/18/17 21:02 08/18/17 21:02 Lab Results 08/18/17 08/18/17 08/18/17 Range/Units 21:02 21:02 21:02 WBC 6.8 (4.3-11.1) K/mcL RBC 4.92 (4.19-5.50) M/mcL Hgb 15.2 (12.9-16.9) g/dL Hct 42.3 (37.5-50.1) % MCV 86.0 (83.0-100.0) fL MCH 30.9 (28.0-33.3) pg MCHC 35.9 H (31.6-35.5) g/dL RDW 16.2 H (11.5-14.5) % Plt Count 189 (140-400) K/mcL MPV 10.6 (9.4-12.4) fL Immature Gran % 0.9 (0-4) % Seg Neutrophils % 64.7 % Lymphocytes % 24.9 % Monocytes % 7.5 % Eosinophils % 1.3 % Basophils % 0.7 % Neutrophils # 4.4 (1.6-8.9) K/mcL Lymphocytes # 1.7 (0.6-4.6) K/mcL Monocytes # 0.5 (0.0-1.3) K/mcL Eosinophils # 0.1 (0.0-0.6) K/mcL Basophils # 0.1 (0.0-0.2) K/mcL PT 13.0 H (9.4-12.1) Seconds INR 1.2 APTT 34.4 (26.0-36.0) Seconds D-Dimer (0-500) ng/mLFEU Sodium 136 (136-145) mEq/L Potassium 4.1 (3.5-4.5) mEq/L Chloride 100 (98-109) mEq/L Carbon Dioxide 24 (19-29) mEq/L BUN 19 (8-26) mg/dL Creatinine 1.21 (0.72-1.25) mg/dL Est GFR ( Amer) > 60 (> 60) Est GFR (Non-Af Amer) > 60 (> 60) BUN/Creatinine Ratio 16 (6-26) Glucose 501 H* (70-99) mg/dL Calculated Osmolality 307 H (280-300) Calcium 9.6 (8.6-10.8) mg/dL Troponin I (0-0.03) ng/mL B-Natriuretic Peptide (0-100) pg/mL Beta-Hydroxybutyric Acd (0.02-0.27) mmol/L 08/18/17 08/18/17 08/18/17 Range/Units 21:02 21:02 21:02 WBC (4.3-11.1) K/mcL RBC (4.19-5.50) M/mcL Hgb (12.9-16.9) g/dL Hct (37.5-50.1) % MCV (83.0-100.0) fL MCH (28.0-33.3) pg MCHC (31.6-35.5) g/dL RDW (11.5-14.5) % Plt Count (140-400) K/mcL MPV (9.4-12.4) fL Immature Gran % (0-4) % Seg Neutrophils % % Lymphocytes % % Monocytes % % Eosinophils % % Basophils % % Neutrophils # (1.6-8.9) K/mcL Lymphocytes # (0.6-4.6) K/mcL Monocytes # (0.0-1.3) K/mcL Eosinophils # (0.0-0.6) K/mcL Basophils # (0.0-0.2) K/mcL PT (9.4-12.1) Seconds INR APTT (26.0-36.0) Seconds D-Dimer 410 (0-500) ng/mLFEU Sodium (136-145) mEq/L Potassium (3.5-4.5) mEq/L Chloride (98-109) mEq/L Carbon Dioxide (19-29) mEq/L BUN (8-26) mg/dL Creatinine (0.72-1.25) mg/dL Est GFR ( Amer) (> 60) Est GFR (Non-Af Amer) (> 60) BUN/Creatinine Ratio (6-26) Glucose (70-99) mg/dL Calculated Osmolality (280-300) Calcium (8.6-10.8) mg/dL Troponin I 0.00 (0-0.03) ng/mL B-Natriuretic Peptide 28 (0-100) pg/mL Beta-Hydroxybutyric Acd (0.02-0.27) mmol/L 08/18/17 Range/Units 21:02 WBC (4.3-11.1) K/mcL RBC (4.19-5.50) M/mcL Hgb (12.9-16.9) g/dL Hct (37.5-50.1) % MCV (83.0-100.0) fL MCH (28.0-33.3) pg MCHC (31.6-35.5) g/dL RDW (11.5-14.5) % Plt Count (140-400) K/mcL MPV (9.4-12.4) fL Immature Gran % (0-4) % Seg Neutrophils % % Lymphocytes % % Monocytes % % Eosinophils % % Basophils % % Neutrophils # (1.6-8.9) K/mcL Lymphocytes # (0.6-4.6) K/mcL Monocytes # (0.0-1.3) K/mcL Eosinophils # (0.0-0.6) K/mcL Basophils # (0.0-0.2) K/mcL PT (9.4-12.1) Seconds INR APTT (26.0-36.0) Seconds D-Dimer (0-500) ng/mLFEU Sodium (136-145) mEq/L Potassium (3.5-4.5) mEq/L Chloride (98-109) mEq/L Carbon Dioxide (19-29) mEq/L BUN (8-26) mg/dL Creatinine (0.72-1.25) mg/dL Est GFR ( Amer) (> 60) Est GFR (Non-Af Amer) (> 60) BUN/Creatinine Ratio (6-26) Glucose (70-99) mg/dL Calculated Osmolality (280-300) Calcium (8.6-10.8) mg/dL Troponin I (0-0.03) ng/mL B-Natriuretic Peptide (0-100) pg/mL Beta-Hydroxybutyric Acd 0.26 (0.02-0.27) mmol/L
[2017-08-18] MEDS ORDERED: *HR* HYDROmorphone (PF) 1 MG/ML SYRINGE IVP ONE (22:00)
[2017-08-18 22:06] LABS: VBG HCO3 27 mEq/L (21-27); VBG PCO2 41 mmHg (41-51); VBG PH 7.42 pH Units (7.32-7.42); VBG PO2 101 mmHg (25-50)
[2017-08-18] MEDS ORDERED: Furosemide 20 MG/2 ML VIAL IVP ONE (23:33)
--- NOTE | 2017-08-18 23:40 | Internal Med History&Physical ---
Date of Encounter: 08/18/17 Time of Encounter: 23:38 Assessment and Plan (1) Left shoulder pain Current visit: Yes Status: Acute Patient had recent imaging showing bursitis and rotator cuff tear. Patient is getting opiate medications, but still has significant pain and reduction in range of motion of the left shoulder joint in all directions. Will consult orthopedic surgery for further input. Qualifiers: Qualified Code(s): M25.512 - Pain in left shoulder (2) CHF (congestive heart failure) Current visit: No Status: Chronic Patient mentioned that he had been recently on a course of steroids. He has gained 10 pounds in the past month. Will give the patient to those of IV Lasix 40 mg. Continue Lasix 40 mg daily his home dose. Qualifiers: Congestive heart failure type: diastolic Congestive heart failure chronicity: acute on chronic Qualified Code(s): I50.33 - Acute on chronic diastolic (congestive) heart failure (3) Chronic anticoagulation Current visit: No Status: Chronic Patient has history of paroxysmal Afib/flutter. Continues xarelto (4) Newly diagnosed diabetes Current visit: No Status: Acute Sliding scale insulin. Internal Medicine - H&P: HPI Chief complaint: sob History of present illness: Mr. Cohen is a 62 year old male with multiple medical problems including diabetes mellitus, paroxysmal atrial fibrillation, who was recently diagnosed with left shoulder bursitis and rotator cuff tear presents to the emergency room today with the main complaint SHORTNESS of breath left shoulder pain. Patient noted that he has gained 10 pounds over the past month. Patient also notices shortness of breath with exertion and bilateral lower extremity swelling. Patient has been on steroids for his left shoulder pathology a few weeks ago. Patient is taking opiates for his left shoulder pain. Still notices significant pain and decreased range of motion in the left shoulder joint in all directions. No fevers or chills. No worsening cough or increased sputum production. He is on anticoagulation with several to for atrial fibrillation Past Med Surg Social Fam HX - Past Medical History Medical history: CHF, hypertension Psychiatric history: no psych history - Past Surgical History Surgical History: appendectomy - Social History Smoking Status: Current every day smoker Packs per day: 1 Smokeless Tobacco Status: No Alcohol use: none Drug use: none - Family History Mother Hx Family Endocrine Disorder: Yes (DM) Internal Medicine - H&P: Meds Atorvastatin [Lipitor] 40 mg PO HS 05/15/17 [History] Carvedilol [Coreg] 25 mg PO BID 05/15/17 [History] Furosemide [Lasix] 40 mg PO DAILY 05/15/17 [History] Gabapentin [Neurontin] 800 mg PO QID 05/15/17 [History] Isosorbide MONOnitrate [Isosorbide Mononitrate ER] 120 mg PO DAILY 05/15/17 [ History] Potassium Chloride [Klor-Con 10] 10 meq PO DAILY 05/15/17 [History] Rivaroxaban [Xarelto] 20 mg PO DAILY 05/15/17 [History] Insulin Glargine [Lantus] 26 unit SQ HS 08/18/17 [History] Losartan Potassium [Cozaar] 50 mg PO BID 08/18/17 [History] Metformin HCl [Glucophage] 1,000 mg PO BID 08/18/17 [History] Oxycodone HCl 10 mg PO Q6H PRN 08/18/17 [History] 3 Allergy/AdvReac Type Severity Reaction Status Date / Time aspirin [ASA] Allergy See Verified 08/18/17 20:50 Comments NSAIDS (Non-Steroidal Allergy See Verified 08/18/17 20:50 Anti-Inflamma Comments acetaminophen [From Tylenol] AdvReac See Verified 08/18/17 22:14 Comments All Systems PM: A 10-system review of systems was performed and is negative for pertinent findings except as documented above in the HPI. Review of systems: 10 point ROS is negative except for HPI - Constitutional Vitals: Temp Pulse Resp BP Pulse Ox 98.1 F 94 18 153/84 96 08/18/17 22:47 08/18/17 22:47 08/18/17 22:47 08/18/17 22:47 08/18/17 22:47 Exam: Gen.: patient is alert oriented times 3 not in distress cardiac: Normal S1, S2, no additional sounds or murmurs chest: Coarse breath sounds. Clear to auscultation Abdomen: Soft, snon tender, non distended lower extremity Lax calf muscles trace swelling Neuro: no focal deficits Left shoulder decreased ROM in all directions Internal Med - H&P Results - Labs CBC & Chem 7: 08/18/17 21:02 08/18/17 21:02 - ABG Interpretation ABG results: 08/18/17 22:01 VBG pH 7.42 VBG pCO2 41 VBG pO2 101 H VBG HCO3 27
[2017-08-19] MEDS: *HR* HYDROmorphone (PF) 1 MG/ML SYRINGE IVP PRN ×8 (00:05→22:09)
[2017-08-19] MEDS: Insulin LISPRO 300 UNITS/3 ML VIAL SQ SCH ×6 (00:05→19:52)
[2017-08-19] MEDS: Insulin DETEMIR 100 UNIT/ML X5UNITS SQ SCH ×2 (01:06→19:52)
[2017-08-19] MEDS: *HR* OxyCODONE Immed Rel 5 MG TABLET PO PRN ×4 (01:06→19:51)
[2017-08-19 04:44] LABS: Basophils # 0.1 K/mcL (0.0-0.2); Basophils % 0.8 %; Eosinophils # 0.1 K/mcL (0.0-0.6); Eosinophils % 1.3 %; Hematocrit 38.7 % (37.5-50.1); Hemoglobin 13.7 g/dL (12.9-16.9); Immature Granulocytes % 0.7 % (0-4); Lymphocytes # 1.9 K/mcL (0.6-4.6); Lymphocytes % 31.2 %; Mean Corpuscular HGB Conc 35.4 g/dL (31.6-35.5); Mean Corpuscular Hemoglobin 30.2 pg (28.0-33.3); Mean Corpuscular Volume 85.4 fL (83.0-100.0); Mean Platelet Volume 10.3 fL (9.4-12.4); Monocytes # 0.6 K/mcL (0.0-1.3); Monocytes % 9.1 %; Neutrophils # 3.4 K/mcL (1.6-8.9); Platelet Count 144 K/mcL (140-400); Red Blood Count 4.53 M/mcL (4.19-5.50); Red Cell Distribution Width 16.5 % (11.5-14.5); Segmented Neutrophils % 56.9 %
[2017-08-19 04:59] LABS: Creatine Kinase 106 Units/L (30-200)
[2017-08-19 05:41] LABS: C-Reactive Protein 2 mg/L (Less than 5)
[2017-08-19 08:15] LABS: Hemoglobin A1C 10.2 %
[2017-08-19] MEDS: Gabapentin 400 MG CAPSULE PO SCH ×4 (08:44→19:51)
[2017-08-19] MEDS: Furosemide 40 MG TABLET PO SCH (08:44)
[2017-08-19] MEDS: Isosorbide MONOnitrate (24 HR) 60 MG TAB.ER.24H PO SCH (08:44)
[2017-08-19] MEDS: *HR* Rivaroxaban 10 MG TABLET PO SCH (08:44)
--- NOTE | 2017-08-19 16:42 | Orthopedic Consult Note ---
Date of Encounter: 08/19/17 Time of Encounter: 16:39 History of Present Illness Chief complaint: Left shoulder pain HPI: Mr. Cohen is a 62 year old [id number] male with a long history of left shoulder pain. Patient states he is had intermittent episodes in the past but the current shoulder pain has been severe and debilitating for about the past 3 months. Patient states that he has been seen and treated at the [facility], he had a recent CT arthrogram completed. Did not have an MRI performed because of some persistent intrathecal pain pump leads in his lumbar spine. The patient states that his shoulder pain has been relatively constant but is worse at night and with activity. He describes loss of motion associated with weakness. The patient has significant history of a chronically painful right knee. He has had multiple surgeries in the past including a previous total knee arthroplasty, a revision total knee arthroplasty and then a second revision surgery. Unfortunately the knee is still problematic and "gives out" causing him to fall which was the inciting event for his left shoulder pain 3 months ago. The patient also has a long history of chronic pain management and has been on multiple narcotics and has had several pain pumps placed. He is currently using Percocet 10/325 4 times a day for which he says it usually only lasts about an hour. For complete history and physical data please refer to the formal portion of the medical record. Medical history does include diabetes as well as atrial flutter, the patient is currently on Xarelto 20 mg daily Pertinent orthopedic examination reveals restricted motion to about 80 degrees of abduction, external rotation to only about 10-15 degrees and limited internal rotation. There is no overt weakness with rotator cuff testing at the side, there is some breakaway weakness to external rotation. Deltoid function appears to be intact. No obvious biceps rupture. Examination of the patient's right knee reveals a well-healed midline incision. There is marked lateral collateral ligament laxity with a very tight medial knee. A complete exam was not completed. No x-rays were reviewed. The knee treatment is under a [facility] claim. I reviewed multiple studies. There is no true shoulder x-ray, the arthrogram picture reveals a prominent, elevated greater tuberosity. This is associated with arthritic changes at the acromioclavicular joint and what I suspect is a type II acromion. A recently completed a CT arthrogram of the left shoulder is reviewed. This shows some contrast extension into the rotator cuff, I suspect this is a high-grade partial-thickness tear and not a full-thickness tear. Biceps tendon appears to be intra-articular. There is a bony prominence of the greater tuberosity as well as a type II acromion and arthritic changes of the acromioclavicular joint. Impression: Impingement syndrome left shoulder, suspect partial rotator cuff tear though full-thickness tear cannot be excluded. Recommendation: I discussed with the patient is options. This would include observation, medications, subacromial injections, physical therapy, and the last option would be surgical in the form of an arthroscopic subacromial decompression and distal clavicle resection with possible rotator cuff repair. Patient has reportedly done therapy without relief, cannot take anti- inflammatory medications due to his anticoagulation as well as peptic ulcerations with their use, subacromial steroid injections gave him very short- term relief and created significant hyperglycemia. I discussed with the patient the final option would be surgical. This cannot be done on an urgent basis. I discussed that this is an elective, outpatient surgery and would require several things first. #1 he would require cardiology risk stratification as well as #2 stopping anticoagulation medications for at least 5 -7 days preop. Acid discussed with the patient my concerns for pain management postoperatively as he has been on chronic narcotics for a long period of time and shoulder surgery is a painful procedure. The patient understands and has requested we continue to treat him. 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 I discussed with him in the meantime that I have little to offer him as far as management of his pain. I would not recommend steroid injections in light of his recent elevated blood sugars. Could consider a fentanyl patch or other long-acting agents though I will not continue to manage any chronic pain. Thank you very much for allowing me to see and treat Mr. Cohen. Sincerely, Marcin Carnes,DO Past Med Surg Social Fam HX - Past Medical History Medical history: CHF, hypertension Psychiatric history: no psych history - Past Surgical History Surgical History: appendectomy - Social History Smoking Status: Current every day smoker Packs per day: 1 Smokeless Tobacco Status: No Alcohol use: none Drug use: none - Family History Mother Hx Family Endocrine Disorder: Yes (DM) Medications and Allergies Atorvastatin [Lipitor] 40 mg PO HS 05/15/17 [History] Carvedilol [Coreg] 25 mg PO BID 05/15/17 [History] Furosemide [Lasix] 40 mg PO DAILY 05/15/17 [History] Gabapentin [Neurontin] 800 mg PO QID 05/15/17 [History] Isosorbide MONOnitrate [Isosorbide Mononitrate ER] 120 mg PO DAILY 05/15/17 [ History] Potassium Chloride [Klor-Con 10] 10 meq PO DAILY 05/15/17 [History] Rivaroxaban [Xarelto] 20 mg PO DAILY 05/15/17 [History] Insulin Glargine [Lantus] 26 unit SQ HS 08/18/17 [History] Losartan Potassium [Cozaar] 50 mg PO BID 08/18/17 [History] Metformin HCl [Glucophage] 1,000 mg PO BID 08/18/17 [History] Oxycodone HCl 10 mg PO Q6H PRN 08/18/17 [History] 3 Allergy/AdvReac Type Severity Reaction Status Date / Time aspirin [ASA] Allergy See Verified 08/18/17 20:50 Comments NSAIDS (Non-Steroidal Allergy See Verified 08/18/17 20:50 Anti-Inflamma Comments acetaminophen [From Tylenol] AdvReac See Verified 08/18/17 22:14 Comments All Systems Reviewed: A 10-system review of systems was performed and is negative for pertinent findings except as documented above in the HPI. Physical Exam - Constitutional Vitals: Temp Pulse Resp BP Pulse Ox 97.6 F 70 16 128/79 95 08/19/17 15:37 08/19/17 15:37 08/19/17 15:37 08/19/17 15:37 08/19/17 15:37 Results - Labs Result Diagrams: 08/19/17 04:26 08/18/17 21:02 Labs: Abnormal lab results RDW 16.5 % (11.5-14.5) H 08/19/17 04:26 ESR 11 mm/hr (0-10) H 08/19/17 04:26 PT 13.0 Seconds (9.4-12.1) H 08/18/17 21:02 VBG pO2 101 mmHg (25-50) H 08/18/17 22:01 Glucose 501 mg/dL (70-99) H* 08/18/17 21:02 POC Glucose 205 (58-89) H 08/19/17 15:24 Hemoglobin A1c 10.2 % (-5.6) H 08/19/17 04:26 Calculated Osmolality 307 (280-300) H 08/18/17 21:02 H & H 08/19/17 Range/Units 04:26 Hgb 13.7 D (12.9-16.9) g/dL Hct 38.7 (37.5-50.1) % All other labs normal. - Diagnostic results Shoulder x-ray: image reviewed Shoulder CT: image reviewed Consult Discharge Plan - Plan [facility]errals: [facility] [Primary Care Provider] -
[2017-08-19] MEDS ORDERED: *HR* OxyCODONE Immed Rel 5 MG TABLET PO SCH (17:11)
--- NOTE | 2017-08-19 17:28 | Internal Med Progress Note ---
Date of Encounter: 08/19/17 Time of Encounter: 11:00 - Assessment and plan (1) Rotator cuff disorder Current Visit: Yes Status: Acute Assessment and plan: Anjel Cohen is a 62-year-old male with past medical history A. fib flutter, diabetes, CHF and known left shoulder injury who presented to [facility] on 08/18/2017 with complaint of uncontrolled left shoulder pain. He was admitted for IV pain control and orthopedic consultation. 1. Rotator cuff disorder: per hx. has known history of left shoulder injury years ago. Now with fall approximately 3 months ago has had subsequent left shoulder pain since that time. Outpatient left shoulder CT with high grade tear of the supraspinatus muscle and concern for rotator impingement. Evaluated by orthopedic surgery who who suspects impingement syndrome left shoulder, partial rotator cuff tear though full-thickness tear cannot be excluded. Patient would like to proceed with surgical intervention. This can be done on outpatient basis. Will need cardiac risk stratification and will need to stop anticoagulation for at least 5-7 days preop. Continue with pain management for now. We will ask therapy to see tomorrow for possible sleeping/ swath. Increase home oxycodone to every 4 hours when PRN with IV Dilaudid as needed for breakthrough pain. 2. Diabetes: Per history. Blood sugars uncontrolled controlled with recent steroid use. Continue home long-acting insulin, add SSI. Monitor blood sugar and titrate PRN 3. CHF: per hx. EF unknown as no echo in chart review. With intermittent shortness of breath. Received one-time dose IV Lasix on arrival. Does not appear to be overloaded, check BNP, echo. Continue PO Lasix 4. Atrial flutter: Per history. Rate controlled. Continue BB, Xarelto 5. Hypertension: per hx. BP uncontrolled in ED; Likely due to uncontrolled pain. BP now controlled Continue home BP medication. Monitor BP and titrate PRN 6. DVT prophylaxis: Xarelto Qualifiers: Laterality: left Qualified Code(s): M67.912 - Unspecified disorder of synovium and tendon, left shoulder (2) Diabetes Current Visit: Yes Status: Acute Qualifiers: Diabetes mellitus type: type 2 Diabetes mellitus complication status: with hyperglycemia Diabetes mellitus surveillance sensor officer insulin use: with detention use Qualified Code(s): E11.65 - Type 2 diabetes mellitus with hyperglycemia; Z79.4 - allergy physician (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 of insulin; Z79.4 - alf (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 of insulin ; Z79.4 - alf (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 of insulin; Z79.4 - allergy physician (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 of insulin (3) Atrial flutter Current Visit: Yes Status: Acute Qualifiers: Atrial flutter type: typical Qualified Code(s): I48.3 - Typical atrial flutter (4) CHF (congestive heart failure) Current Visit: No Status: Chronic Qualifiers: Congestive heart failure type: diastolic Congestive heart failure chronicity: acute on chronic Qualified Code(s): I50.33 - Acute on chronic diastolic (congestive) heart failure (5) HTN (hypertension) Current Visit: No Status: Chronic Qualifiers: Hypertension type: unspecified Qualified Code(s): I10 - Essential (primary ) hypertension - Subjective Interval history: Exam bedside. Patient is between. Information obtained from chart review and patient report. Patient's main complaint is his left shoulder pain. Rates pain 10 out of 10 pain is not controlled on home regimen. He is requiring frequent IV Dilaudid. Left shoulder imaging shows possible rotator cuff tear, [facility] notified of consult. Patient also reports intermittent shortness of breath. No chest pain. - Constitutional Vitals: Temp Pulse Resp BP Pulse Ox 97.6 F 70 16 128/79 95 08/19/17 15:37 08/19/17 15:37 08/19/17 15:37 08/19/17 15:37 08/19/17 15:37 General appearance: Present: A&O X 3, pleasant - Head Head exam: Present: atraumatic, normocephalic - Eye Eye exam: Present: PERRL, conjuntiva pink, sclera anicteric Pupils: Present: PERRL - Neck Neck exam general surgery: Present: supple, trachea midline. Absent: lymphadenopathy - Respiratory Respiratory exam: Present: CTAB. Absent: accessory muscle use, rales, rhonchi, wheezes - Cardiovascular Cardiovascular exam: Present: RRR, +S1, +S2. Absent: diastolic murmur, gallop, rubs, systolic murmur - GI/Abdominal GI/Abdominal exam: Present: normal bowel sounds, soft, no peritoneal signs. Absent: distended, tenderness - Extremities Exam Extremities exam: Present: joint swelling (Left shoulder edema), warm, radial pulses palpable and symmetrical. Absent: calf tenderness, cyanotic, pedal edema - Neurological Exam Neurological exam: Present: CN II-XII intact, oriented X3, no focal deficits. Absent: pronater drift, facial droop, speech deficit - Skin Skin exam: Present: dry, intact Internal Medicine: Result - Labs CBC & Chem 7: 08/19/17 04:26 08/18/17 21:02 Labs: Short CBC 08/19/17 Range/Units 04:26 WBC 6.1 (4.3-11.1) K/mcL Hgb 13.7 D (12.9-16.9) g/dL Hct 38.7 (37.5-50.1) % Plt Count 144 (140-400) K/mcL Neutrophils # 3.4 (1.6-8.9) K/mcL Cardiac Enzymes 08/19/17 Range/Units 04:26 Troponin I 0.02 (0-0.03) ng/mL - ABG Interpretation ABG results: PT/INR, D-dimer PT 13.0 Seconds (9.4-12.1) H 08/18/17 21:02 D-Dimer 410 ng/mLFEU (0-500) 08/18/17 21:02 Consult Discharge Plan - Plan [facility]errals: [facility] [Primary Care Provider] -
--- NOTE | 2017-08-19 18:32 | Electrocardiograph Report ---
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
[2017-08-19] MEDS ORDERED: INSULIN GLARGINE SQ SCH (21:00)
[2017-08-19] MEDS ORDERED: Insulin DETEMIR 100 UNIT/ML X5UNITS SQ SCH (21:00)
[2017-08-20] MEDS: Insulin LISPRO 300 UNITS/3 ML VIAL SQ SCH ×7 (00:18→23:29)
[2017-08-20] MEDS: *HR* HYDROmorphone (PF) 1 MG/ML SYRINGE IVP PRN ×3 (03:12→11:51)
[2017-08-20 03:57] LABS: Hematocrit 43.2 % (37.5-50.1); Hemoglobin 14.8 g/dL (12.9-16.9); Mean Corpuscular HGB Conc 34.3 g/dL (31.6-35.5); Mean Corpuscular Hemoglobin 30.6 pg (28.0-33.3); Mean Corpuscular Volume 89.3 fL (83.0-100.0); Mean Platelet Volume 11.4 fL (9.4-12.4); Platelet Count 96 K/mcL (140-400); Red Blood Count 4.84 M/mcL (4.19-5.50); Red Cell Distribution Width 16.6 % (11.5-14.5)
[2017-08-20 04:15] LABS: Alanine Aminotransferase 22 Units/L (0-55); Albumin 4.1 g/dL (3.5-5.0); Albumin/Globulin Ratio 1.2 (1.1-2.2); Alkaline Phosphatase 67 Units/L (38-126); Aspartate Amino Transferase 19 Units/L (5-34); BUN/Creatinine Ratio 24 (6-26); Bilirubin,Total 0.9 mg/dL (0.2-1.2); Blood Urea Nitrogen 23 mg/dL (8-26); Calcium 9.4 mg/dL (8.6-10.8); Carbon Dioxide 26 mEq/L (19-29); Chloride 102 mEq/L (98-109); Globulin 3.3 g/dL (2.4-3.5); Glucose 133 mg/dL (70-99); Osmolality,Calculated 294 (280-300); Potassium 4.2 mEq/L (3.5-4.5); Sodium 139 mEq/L (136-145); Total Protein 7.4 g/dL (6.0-8.3); eGFR For African Americans > 60 (> 60); eGFR For Non-African Americans > 60 (> 60)
[2017-08-20] MEDS: Isosorbide MONOnitrate (24 HR) 60 MG TAB.ER.24H PO SCH (08:20)
[2017-08-20] MEDS: Furosemide 40 MG TABLET PO SCH (08:20)
[2017-08-20] MEDS: *HR* Rivaroxaban 10 MG TABLET PO SCH (08:20)
[2017-08-20] MEDS: Gabapentin 400 MG CAPSULE PO SCH ×4 (08:20→20:57)
[2017-08-20] MEDS: *HR* OxyCODONE Immed Rel 5 MG TABLET PO PRN ×3 (13:58→22:54)
--- NOTE | 2017-08-20 17:55 | Internal Med Progress Note ---
Date of Encounter: 08/20/17 Time of Encounter: 14:00 - Assessment and plan (1) Rotator cuff disorder Current Visit: Yes Status: Acute Assessment and plan: Anjel Cohen is a 62-year-old male with past medical history A. fib flutter, diabetes, CHF and known left shoulder injury who presented to [facility] on 08/18/2017 with complaint of uncontrolled left shoulder pain. He was admitted for IV pain control and orthopedic consultation. 1. Rotator cuff disorder: per hx. has known history of left shoulder injury years ago. Now with fall approximately 3 months ago has had subsequent left shoulder pain since that time. Outpatient left shoulder CT with high grade tear of the supraspinatus muscle and concern for rotator impingement. Evaluated by orthopedic surgery who who suspects impingement syndrome left shoulder, partial rotator cuff tear though full-thickness tear cannot be excluded. Patient would like to proceed with surgical intervention. This can be done on outpatient basis. Will need cardiac risk stratification and will need to stop anticoagulation for at least 5-7 days preop. Continue with pain management for now. We will ask therapy to see tomorrow for possible sleeping/ swath. Increase home oxycodone to every 4 hours PRN. Stop IV pain medicine. If pain control overnight will plan on discharging home 08/21. 2. Diabetes: Per history. Blood sugars uncontrolled controlled with recent steroid use. Continue home long-acting insulin, add SSI. Monitor blood sugar and titrate PRN 3. CHF: per hx. 08/19/2017 TTE with EF 55%, normal systolic function. With intermittent shortness of breath. BNP 18. Received one-time dose IV Lasix on arrival. Does not appear to be overloaded. Continue home Lasix 4. Atrial flutter: Per history. Rate controlled. Continue BB, Xarelto 5. Hypertension: per hx. BP uncontrolled in ED; Likely due to uncontrolled pain. BP now controlled Continue home BP medication. Monitor BP and titrate PRN 6. DVT prophylaxis: Xarelto 7. Thrombocytopenia: PLTs 96; previously normal. No drop in WBC or Hgb. No obvious active bleeding. Repeat CBC. Continue Xarelto. Disposition: Tentatively return to home on 08/21 at pain control. 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 (3) Atrial flutter Current Visit: Yes Status: Acute Qualifiers: Atrial flutter type: typical Qualified Code(s): I48.3 - Typical atrial flutter (4) CHF (congestive heart failure) Current Visit: No Status: Chronic Qualifiers: Congestive heart failure type: diastolic Congestive heart failure chronicity: acute on chronic Qualified Code(s): I50.33 - Acute on chronic diastolic (congestive) heart failure (5) HTN (hypertension) Current Visit: No Status: Chronic Qualifiers: Hypertension type: unspecified Qualified Code(s): I10 - Essential (primary ) hypertension - Subjective Interval history: Seen and examined at bedside; says pain is a little better. He is agreeable to stopping IV pain medicine and increasing frequency of home medication. - Constitutional Vitals: Temp Pulse Resp BP Pulse Ox 98.0 F 67 16 124/70 94 08/20/17 16:40 08/20/17 16:40 08/20/17 16:40 08/20/17 16:40 08/20/17 16:40 General appearance: Present: A&O X 3, pleasant - Head Head exam: Present: atraumatic, normocephalic - Eye Eye exam: Present: PERRL, conjuntiva pink, sclera anicteric Pupils: Present: PERRL - Neck Neck exam general surgery: Present: supple, trachea midline. Absent: lymphadenopathy - Respiratory Respiratory exam: Present: CTAB. Absent: accessory muscle use, rales, rhonchi, wheezes - Cardiovascular Cardiovascular exam: Present: RRR, +S1, +S2. Absent: diastolic murmur, gallop, rubs, systolic murmur - GI/Abdominal GI/Abdominal exam: Present: normal bowel sounds, soft, no peritoneal signs. Absent: distended, tenderness - Extremities Exam Extremities exam: Present: joint swelling, warm, radial pulses palpable and symmetrical. Absent: calf tenderness, cyanotic, pedal edema Additional comments: Left arm with limited range of motion and guarding. - Neurological Exam Neurological exam: Present: CN II-XII intact, oriented X3, no focal deficits. Absent: pronater drift, facial droop, speech deficit - Skin Skin exam: Present: dry, intact Internal Medicine: Result - Labs CBC & Chem 7: 08/20/17 03:43 08/20/17 03:43 Labs: Short CBC 08/20/17 Range/Units 03:43 WBC 6.7 (4.3-11.1) K/mcL Hgb 14.8 (12.9-16.9) g/dL Hct 43.2 (37.5-50.1) % Plt Count 96 L (140-400) K/mcL BMP 08/20/17 03:43 Sodium 139 Potassium 4.2 Chloride 102 Carbon Dioxide 26 BUN 23 Creatinine 0.96 Glucose 133 H Calcium 9.4 Liver Function 08/20/17 Range/Units 03:43 Total Bilirubin 0.9 (0.2-1.2) mg/dL AST 19 (5-34) Units/L ALT 22 (0-55) Units/L Alkaline Phosphatase 67 (38-126) Units/L Albumin 4.1 (3.5-5.0) g/dL - ABG Interpretation ABG results: PT/INR, D-dimer PT 13.0 Seconds (9.4-12.1) H 08/18/17 21:02 D-Dimer 410 ng/mLFEU (0-500) 08/18/17 21:02 Consult Discharge Plan - Plan [facility]errals: [facility] [Primary Care Provider] -
[2017-08-20] MEDS: Insulin DETEMIR 100 UNIT/ML X5UNITS SQ SCH (20:56)
[2017-08-21] MEDS: *HR* HYDROmorphone (PF) 1 MG/ML SYRINGE IVP PRN ×2 (01:37→05:53)
[2017-08-21 04:02] LABS: Hematocrit 38.1 % (37.5-50.1); Hemoglobin 13.3 g/dL (12.9-16.9); Mean Corpuscular HGB Conc 34.9 g/dL (31.6-35.5); Mean Corpuscular Hemoglobin 30.8 pg (28.0-33.3); Mean Corpuscular Volume 88.2 fL (83.0-100.0); Mean Platelet Volume 10.5 fL (9.4-12.4); Platelet Count 161 K/mcL (140-400); Red Blood Count 4.32 M/mcL (4.19-5.50); Red Cell Distribution Width 16.2 % (11.5-14.5)
[2017-08-21 04:19] LABS: Alanine Aminotransferase 19 Units/L (0-55); Albumin 3.7 g/dL (3.5-5.0); Albumin/Globulin Ratio 1.3 (1.1-2.2); Alkaline Phosphatase 60 Units/L (38-126); Aspartate Amino Transferase 15 Units/L (5-34); BUN/Creatinine Ratio 26 (6-26); Bilirubin,Total 0.8 mg/dL (0.2-1.2); Blood Urea Nitrogen 25 mg/dL (8-26); Calcium 8.8 mg/dL (8.6-10.8); Carbon Dioxide 26 mEq/L (19-29); Chloride 103 mEq/L (98-109); Globulin 2.8 g/dL (2.4-3.5); Glucose 159 mg/dL (70-99); Osmolality,Calculated 294 (280-300); Potassium 4.1 mEq/L (3.5-4.5); Sodium 138 mEq/L (136-145); Total Protein 6.5 g/dL (6.0-8.3); eGFR For African Americans > 60 (> 60); eGFR For Non-African Americans > 60 (> 60)
[2017-08-21] MEDS: Insulin LISPRO 300 UNITS/3 ML VIAL SQ SCH ×3 (04:40→12:31)
[2017-08-21] MEDS: *HR* Rivaroxaban 10 MG TABLET PO SCH (08:27)
[2017-08-21] MEDS: Gabapentin 400 MG CAPSULE PO SCH ×2 (08:27→12:31)
[2017-08-21] MEDS: Furosemide 40 MG TABLET PO SCH (08:27)
[2017-08-21] MEDS: Isosorbide MONOnitrate (24 HR) 60 MG TAB.ER.24H PO SCH (08:27)
[2017-08-21] MEDS: *HR* OxyCODONE Immed Rel 5 MG TABLET PO PRN (08:27)
[2017-08-21] MEDS ORDERED: *HR* OxyCODONE Immed Rel 5 MG TABLET PO ONE (08:30)
--- NOTE | 2017-08-21 08:59 | Discharge Summary ---
Date of Encounter: 08/21/17 Time of Encounter: 07:51 - Discharge Diagnosis (1) Rotator cuff disorder Priority: Primary Status: Acute Comments: Anjel Cohen is a 62-year-old male with past medical history A. fib flutter, diabetes, CHF and known left shoulder injury who presented to [facility] on 08/18/2017 with complaint of uncontrolled left shoulder pain. He was admitted for IV pain control and orthopedic consultation. He was evaluated by orthopedic surgeon who suspected impingement syndrome of left shoulder and patient opted for surgical intervention. This is to be done on outpatient basis. His pain medication was adjusted and was discharged home on 08/21/2017 in stable condition with outpatient follow-up. 1. Rotator cuff disorder: per hx. Has known history of left shoulder injury years ago. Now with fall approximately 3 months prior to admission with subsequent severe and debilitating left shoulder pain. Outpatient left shoulder CT with high grade tear of the supraspinatus muscle and concern for rotator impingement. Evaluated by orthopedic surgery who who suspects left shoulder impingement syndrome with suspected partial rotator cuff tear ( although a full-thickness tear could not be excluded). Decision was made proceed with surgical intervention which will be done on outpatient basis. Patient will need cardiac risk stratification and will need to stop anticoagulation for at least 5-7 days preop. Can follow-up outpatient with Cardiology and Ortho 2. Acute on chronic pain: long history of chronic pain and follows with Pain Management in [place]. Has been on multiple narcotics/opiates in the past along with pain pumps and pain stimulators. Now with severe debilitating left shoulder pain secondary to rotator cuff disorder. On Percocet 10/325 every 6 hours at home. Initially treated with IV Dilaudid and OxyIR to achieve tolerable pain control. Discharged home on OxyIR 20 mg every 6 hours (given 1 week rx and advised to follow-up with Pain Management physician within one week) . He would likely benefit from long-acting pain control. Defer further pain medication titration to outpatient pain management physician 3. Diabetes: Per history. Blood sugars uncontrolled with recent steroid use. Home oral hypoglycemics held on admission. Blood sugars improved with adding SSI while inpatient. Resume home diabetes medication regimen at discharge. Recommend follow-up with PCP within 1-2 weeks. 4. Chronic diastolic heart failure: 04/2017 TTE with EF 55%, normal systolic function and mild diastolic dysfunction. BNP 18. Received one-time dose IV Lasix on arrival. Appears euvolemic. Continue home Lasix 5. Atrial flutter: Per history. Rate controlled. Continue BB, Xarelto 6. Hypertension: per hx. BP controlled. Continue home BP medication. 7. Thrombocytopenia: PLTs 96; previously normal. No obvious active bleeding. Repeat PLTs 161. Suspect lab error. Recommend repeat CBC with PCP in 1 to 2 weeks. 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; Z79.4 - alf (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 of insulin (3) Atrial flutter Priority: Primary Status: Acute Qualifiers: Atrial flutter type: typical Qualified Code(s): I48.3 - Typical atrial flutter (4) CHF (congestive heart failure) Priority: Primary Status: Chronic Qualifiers: Congestive heart failure type: diastolic Congestive heart failure chronicity: acute on chronic Qualified Code(s): I50.33 - Acute on chronic diastolic (congestive) heart failure (5) HTN (hypertension) Priority: Primary Status: Chronic Qualifiers: Hypertension type: unspecified Qualified Code(s): I10 - Essential (primary ) hypertension - Discharge Medications Prescriptions: OxyCODONE Immed Rel [Roxicodone 15 MG] 20 mg PO Q6HR PRN #28 tablet PRN Reason: Pain Home Medications: Atorvastatin [Lipitor] 40 mg PO HS 05/15/17 [History] Carvedilol [Coreg] 25 mg PO BID 05/15/17 [History] Furosemide [Lasix] 40 mg PO DAILY 05/15/17 [History] Gabapentin [Neurontin] 800 mg PO QID 05/15/17 [History] Isosorbide MONOnitrate [Isosorbide Mononitrate ER] 120 mg PO DAILY 05/15/17 [ History] Potassium Chloride [Klor-Con 10] 10 meq PO DAILY 05/15/17 [History] Rivaroxaban [Xarelto] 20 mg PO DAILY 05/15/17 [History] Insulin Glargine [Lantus] 26 unit SQ HS 08/18/17 [History] Losartan Potassium [Cozaar] 50 mg PO BID 08/18/17 [History] Metformin HCl [Glucophage] 1,000 mg PO BID 08/18/17 [History] Oxycodone HCl 20 mg PO Q6H PRN #56 tab 08/21/17 [Rx] Allergies/Adverse Reactions: 3 Allergy/AdvReac Type Severity Reaction Status Date / Time aspirin [ASA] Allergy See Verified 08/18/17 20:50 Comments NSAIDS (Non-Steroidal Allergy See Verified 08/18/17 20:50 Anti-Inflamma Comments acetaminophen [From Tylenol] AdvReac See Verified 08/18/17 22:14 Comments Date of admission: 08/19/17 18:24 Primary care physician: PCP MD Discharging clinician: Marcela Ansari Anticipated date of discharge: 08/21/17 - Patient Status Disposition: Home, Self-Care Condition: Good Overall status at discharge: patient is progressing back to baseline - Discharge Instructions Instructions: Oxycodone, Rapid Release (By mouth), Rotator Cuff Injury (DC), Opioid Pain Management (DC) Follow Up With: Casey Israel MD [Non-Partnered Physician] - Jyothi Barakat PAC [Physician Manager Environmental Services] - MD,PCP [Primary Care Provider] - Marcin Carnes DO [Non-Partnered Physician] - Additional Instructions: Follow Up Appointments: 1. Please call your [facility]care [facility] Administrator office within 24 hours or next business day to schedule a follow up appointment. You need cardiac risk stratification prior to left shoulder surgery. You also need to be off anticoagulation for 5-7 prior to surgery 2. Please call your Pain Management office within 24 hours or next business day to schedule a follow up appointment. Your pain medication was changed to OxyIR 10mg by mouth every 6 hours as neded for pain 3. Please call Dr. Carnes's office within 24 hours or next business day to initiate and coordinate left shoulder surgery 4. Please call your Primary care physicians office within 24 hours or next business day to schedule a follow up appointment. - Diet and Activity Activity: increase activity as tolerated, resume usual activities as tolerated Diet: diabetic diet, low fat, low cholesterol Interval History: Seen and examined at bedside. Patient says he did not have a good night and required 2 doses of IV Dilaudid overnight. He reports left shoulder pain that radiates towards chest. Pain medicine only helps a little, activity worsens. Pain is reproducible with light palpation. MAR reviewed and last time he took oxycodone was at 2200 tonight before. Advised patient that he should have taken the oxycodone every 4 hours as it was available to achieve adequate pain control. Patient reports he did not understand that and thought IV medicine helped better so he would try that first. Had long discussion with patient regarding pain management and advised patient that expecting 0 pain is not realistic and he agreed. He states his current home regimen only last an hour or maybe 2 hours at the most. Says the IV Dilaudid helps immediately but does not last long. He is agreeable to doubling home dose. He is aware that I can only give 1 week Rx and he will need to follow up with his pain management clinic for further medication titration. He denies chest pain, no shortness of breath. He wants to try increased dose of pain medicine and if pain is improved and he would like to go home today. Hospital course: See assessment and plan for hospital course - Time Spent with Patient Total time spent providing and/or coordinating discharge services: Greater than 30 minutes (48 minutes spent on discharge) - Constitutional Vitals: Temp Pulse Resp BP Pulse Ox 97.7 F 66 15 114/75 92 08/21/17 06:56 08/21/17 06:56 08/21/17 06:56 08/21/17 06:56 08/21/17 06:56 General appearance: Present: A&O X 3, pleasant, no acute distress - Head Head exam: Present: atraumatic, normocephalic - Eye Eye exam: Present: PERRL, conjuntiva pink, sclera anicteric Pupils: Present: PERRL - Neck Neck exam general surgery: Present: supple, trachea midline. Absent: lymphadenopathy - Respiratory Respiratory exam: Present: CTAB. Absent: accessory muscle use, rales, rhonchi, wheezes - Cardiovascular Cardiovascular exam: Present: RRR, +S1, +S2. Absent: diastolic murmur, gallop, rubs, systolic murmur - GI/Abdominal GI/Abdominal exam: Present: normal bowel sounds, soft, no peritoneal signs. Absent: distended, tenderness - Extremities Exam Extremities exam: Present: joint swelling, warm, radial pulses palpable and symmetrical. Absent: calf tenderness, cyanotic, pedal edema Additional comments: Left shoulder with limited range of motion and mild swelling. Painful to touch - Neurological Exam Neurological exam: Present: CN II-XII intact, oriented X3, no focal deficits. Absent: pronater drift, facial droop, speech deficit - Skin Skin exam: Present: dry, intact
[2017-08-21 11:46] VITALS: BP 96/60
[2017-08-21] MEDS ORDERED: *HR* OxyCODONE Immed Rel 15 MG TABLET PO PRN (12:30)
[2017-08-21] MEDS ORDERED: *HR* OxyCODONE Immed Rel 5 MG TABLET PO PRN (12:30)
[2017-08-21] MEDS ORDERED: FLUARIX QUAD 2017-18 36MOS UP/PF 0.5 ML SYRINGE IM ONE (12:43)
[2017-08-21 21:59] LABS: CK-BB (CK isoenzymes) 0 % (0-0); CK-MB (CK isoenzymes) 0 % (0-4); CK-MM (CK-isoenzymes) 100 % (96-100)
[2017-08-22 07:34] LABS: CK Total (Ck Isoenzymes) 106 U/L (20-200)
== END 2017-08-21 13:45 | disposition home or self-care (01) | DRG 558 ==
LOC: EMEROO 20:43 → 3BNU 20:43
PROVIDERS: ADMIT Internal Medicine; ATTEND Registered Nurse

== ENCOUNTER 2017-09-01 19:35 | Inpatient (IN) ==
[2017-09-01 20:07] LABS: Basophils # 0.1 K/mcL (0.0-0.2); Basophils % 0.8 %; Eosinophils # 0.1 K/mcL (0.0-0.6); Eosinophils % 1.2 %; Hematocrit 43.3 % (37.5-50.1); Hemoglobin 15.1 g/dL (12.9-16.9); Immature Granulocytes % 0.6 % (0-4); Lymphocytes # 1.2 K/mcL (0.6-4.6); Lymphocytes % 13.8 %; Mean Corpuscular HGB Conc 34.9 g/dL (31.6-35.5); Mean Corpuscular Hemoglobin 30.5 pg (28.0-33.3); Mean Corpuscular Volume 87.5 fL (83.0-100.0); Mean Platelet Volume 10.5 fL (9.4-12.4); Monocytes # 0.7 K/mcL (0.0-1.3); Neutrophils # 6.7 K/mcL (1.6-8.9); Platelet Count 167 K/mcL (140-400); Red Blood Count 4.95 M/mcL (4.19-5.50); Red Cell Distribution Width 15.1 % (11.5-14.5); Segmented Neutrophils % 75.6 %
[2017-09-01 20:21] LABS: BUN/Creatinine Ratio 14 (6-26); Blood Urea Nitrogen 15 mg/dL (8-26); Calcium 9.3 mg/dL (8.6-10.8); Carbon Dioxide 23 mEq/L (19-29); Chloride 100 mEq/L (98-109); Glucose 439 mg/dL (70-99); Osmolality,Calculated 300 (280-300); Sodium 135 mEq/L (136-145); eGFR For African Americans > 60 (> 60); eGFR For Non-African Americans > 60 (> 60)
[2017-09-01 20:23] LABS: Potassium 4.1 mEq/L (3.5-4.5)
[2017-09-01] MEDS ORDERED: Ondansetron 4 MG/2 ML VIAL IVP ONE (20:28)
[2017-09-01] MEDS ORDERED: 0.9 % Sodium Chloride 1,000 ML IVC ONE (20:28)
[2017-09-01] MEDS ORDERED: *HR* Morphine 2 MG/ML SYRINGE IVP ONE (20:29)
[2017-09-01] MEDS: Aspirin 81 MG TAB.CHEW PO ONE ×2 (20:40→20:49)
--- NOTE | 2017-09-01 20:46 | Emergency Department Note ---
Disposition Clinical Impression: Acute exacerbation of CHF (congestive heart failure) Qualifiers: Congestive heart failure type: unspecified congestive heart failure type Qualified Code(s): I50.9 - Heart failure, unspecified CHF (congestive heart failure) Qualifiers: Congestive heart failure type: unspecified congestive heart failure type Congestive heart failure chronicity: acute on chronic Qualified Code(s): I50.9 - Heart failure, unspecified Disposition: Admitted As Inpatient Condition: Fair Time of Disposition: 22:09 General Adult HPI - General Chief complaint: ED Shortness of Breath/Dyspnea Stated complaint: ERNESTO Time Seen by Provider: 09/01/17 19:46 Source: patient Mode of arrival: wheelchair Limitations: no limitations Nursing Notes Reviewed: Yes Vital Signs Reviewed: Yes - History of Present Illness HPI Narrative: 62-year-old male presents to the ED with history of CHF for difficulty in breathing. He states for the last couple days he had a hard time breathing he feels occurs phlegm in his throat when he has had a chronic cough. He states he feels like he is getting more bloated and his feet and legs are also getting more swollen. He does take Lasix and he has not changed recently. She has had no fevers. He then unable to cough up any sputum. He states he has had CHF exacerbations of this, feels like it could be that. He states he is having no abdominal pain other than the distention but is not painful. He had no change in bowel movements. No change with urinary symptoms. No pain or tingling going down the arms or legs. Said no nausea or vomiting. He otherwise has no complaint. Pain Scale: 8 - Related Data Home Medications Medication Instructions Recorded Confirmed Atorvastatin [Lipitor] 40 mg PO HS 05/15/17 09/01/17 Carvedilol [Coreg] 25 mg PO BID 05/15/17 09/01/17 Furosemide [Lasix] 40 mg PO DAILY 05/15/17 09/01/17 Gabapentin [Neurontin] 800 mg PO QID 05/15/17 09/01/17 Isosorbide MONOnitrate [Isosorbide 120 mg PO DAILY 05/15/17 09/01/17 Mononitrate ER] Potassium Chloride [Klor-Con 10] 10 meq PO DAILY 05/15/17 09/01/17 Rivaroxaban [Xarelto] 20 mg PO DAILY 05/15/17 09/01/17 Insulin Glargine [Lantus] 32 unit SQ HS 08/18/17 09/01/17 Losartan Potassium [Cozaar] 50 mg PO BID 08/18/17 09/01/17 Metformin HCl [Glucophage] 1,000 mg PO BID 08/18/17 09/01/17 Previous Rx's Medication Instructions Recorded Oxycodone HCl 20 mg PO Q6H PRN #56 tab 08/21/17 Allergies Allergy/AdvReac Type Severity Reaction Status Date / Time aspirin [ASA] Allergy See Verified 09/01/17 19:45 Comments NSAIDS (Non-Steroidal Allergy See Verified 09/01/17 19:45 Anti-Inflamma Comments acetaminophen [From Tylenol] AdvReac See Verified 09/01/17 19:45 Comments Review of Systems: 10 point review of systems done and negative unless otherwise stated in history of present illness. All systems ED: reviewed and negative except as stated. Constitutional: Denies: fever, chills, weakness Cardiovascular: Denies: chest pain, palpitations, dyspnea on exertion Respiratory: Reports: cough, dyspnea Gastrointestinal: Denies: abdominal pain, nausea, vomiting, diarrhea, constipation, hematemesis, melena, hematochezia Integumentary: Denies: rash, abrasion, lesions Endocrine: Denies: fatigue Past Medical History - Past Medical History Attestation: Yes The following information was validated with the patient. Medical history: Reports: CHF, hypertension Surgical history: Reports: appendectomy Psychiatric history: Reports: no psych history - Social History Smoking Status: Current every day smoker Smokeless Tobacco Status: No Alcohol use: Reports: none Drug use: Reports: none Physical Exam - General Limitations: no limitations General appearance: alert - Head Head exam: atraumatic, normocephalic, normal inspection - Eye Eye exam: Present: normal appearance, PERRL, EOMI - ENT ENT exam: normal exam, normal oropharynx, mucous membranes moist - Neck Neck exam: Present: normal inspection, full ROM, trachea midline - Chest Chest inspection: Present: normal inspection, symmetric chest wall rise - Respiratory Respiratory exam: Present: wheezes. Absent: respiratory distress, accessory muscle use - Expanded Respiratory Exam Location: rhonchi: Lower, Right, Left - Cardiovascular Cardiovascular exam: Present: regular rate, normal rhythm, normal heart sounds - Abdominal Exam Abdominal exam: Present: soft, Non-Tender, distention. Absent: tenderness, guarding, rebound, rigidity - Extremities Exam Extremities exam: Present: normal inspection, full ROM, pedal edema. Absent: tenderness - Expanded Lower Extremity Exam Ankle exam: Present: swelling (Bilateral) Foot/toe exam: Present: swelling (Lateral) Neurovascular/Tendon exam: Present: normal capillary refill. Absent: pulse deficit, motor deficit, sensory deficit, tendon deficit - Back Exam Back exam: Present: normal inspection, full ROM. Absent: tenderness - Neurological Exam Neurological exam: Present: alert, oriented X3 - Psychiatric Psychiatric exam: Present: normal affect, normal mood - Skin Skin exam: Present: warm, dry, intact, normal color Course Course Narrative: 62-year-old male presented to the ED for most likely CHF exacerbation. This also could be upper respiratory infection such as bronchitis. We will get a chest x-ray, basic labs including CBC, BMP, troponin, BNP. We will also do an EKG. We will give him aspirin, Zofran and morphine for pain control. We will put an IV in and have fluids running at TV0. We will reevaluate once chest x- ray and labs come back. Vital Signs Temperature 98.3 F 09/01/17 19:36 Pulse Rate 110 09/01/17 19:36 Respiratory Rate 24 09/01/17 19:36 Blood Pressure 170/93 09/01/17 19:36 O2 Sat by Pulse Oximetry 90 09/01/17 19:36 Temperature 98.3 F 09/01/17 19:36 Pulse Rate 99 09/01/17 21:29 Respiratory Rate 18 09/01/17 21:29 Blood Pressure 150/91 09/01/17 21:29 O2 Sat by Pulse Oximetry 94 09/01/17 21:29 Oxygen Delivery Oxygen Delivery Nasal Cannula Medical Decision Making - [facility] Narrative Medical decision making narrative: 62-year-old male presents to the ED for CHF exacerbation he does have a history of this. He states that he has been having this chest pain and a real hard time breathing. This is been going on for the past 2 or 3 days. He feels that he cannot catch his breath and he has had a cough. He has been coughing up what he feels like some phlegm but has not been all the way up. He does take by mouth Lasix. He otherwise having no symptoms. We did a normal chest pain workup on him which everything came back normal on him. His BNP came back normal. Chest x-ray did show mild pulmonary congestion but there was no localized effusion. But due to his symptoms I think this most likely is a CHF exacerbation. He did have a mildly elevated d-dimer but due to him no longer being tachycardic after getting fluids and helping with pain and also not being short of breath we decided that getting a CT angio of his chest was not needed. I spoke with the patient about this and he agreed. He has no risk factors or history of having blood clots. We gave him 40 mg IV Lasix. We also gave him morphine which he said did not really help his pain. I also gave him 1 mg of Dilaudid which did help with his pain. He was also given aspirin and Zofran which did help with his symptoms. Patient otherwise having no complaints. This is a CHF exacerbation admission. Patient was admitted to the hospitalist in stable condition. Patient agrees with this plan. Chest X-Ray 09/01/17 19:51 IMPRESSION: Pulmonary vascular congestion. Stable mild cardiomegaly. D/ / Luis Enrique Fernandez MD / Luis Enrique Fernandez MD Interpreting Provider: Luis Enrique Fernandez MD - Medical Records Medical records reviewed: Yes I reviewed the patient's medical records. - Lab Data Lab results reviewed: Yes I reviewed the patient's lab results. Result diagrams: 09/01/17 19:55 09/01/17 19:55 Lab Results 09/01/17 09/01/17 09/01/17 Range/Units 19:55 19:55 19:55 WBC 8.9 (4.3-11.1) K/mcL RBC 4.95 (4.19-5.50) M/mcL Hgb 15.1 (12.9-16.9) g/dL Hct 43.3 (37.5-50.1) % MCV 87.5 (83.0-100.0) fL MCH 30.5 (28.0-33.3) pg MCHC 34.9 (31.6-35.5) g/dL RDW 15.1 H (11.5-14.5) % Plt Count 167 (140-400) K/mcL MPV 10.5 (9.4-12.4) fL Immature Gran % 0.6 (0-4) % Seg Neutrophils % 75.6 % Lymphocytes % 13.8 % Monocytes % 8.0 % Eosinophils % 1.2 % Basophils % 0.8 % Neutrophils # 6.7 (1.6-8.9) K/mcL Lymphocytes # 1.2 (0.6-4.6) K/mcL Monocytes # 0.7 (0.0-1.3) K/mcL Eosinophils # 0.1 (0.0-0.6) K/mcL Basophils # 0.1 (0.0-0.2) K/mcL D-Dimer 551 H (0-500) ng/mLFEU Sodium 135 L (136-145) mEq/L Potassium 4.1 (3.5-4.5) mEq/L Chloride 100 (98-109) mEq/L Carbon Dioxide 23 (19-29) mEq/L BUN 15 (8-26) mg/dL Creatinine 1.07 (0.72-1.25) mg/dL Est GFR ( Amer) > 60 (> 60) Est GFR (Non-Af Amer) > 60 (> 60) BUN/Creatinine Ratio 14 (6-26) Glucose 439 H (70-99) mg/dL Calculated Osmolality 300 (280-300) Lactic Acid (0.5-2.2) mmol/L Calcium 9.3 (8.6-10.8) mg/dL Troponin I (0-0.03) ng/mL B-Natriuretic Peptide (0-100) pg/mL Specimen Rejected 09/01/17 09/01/17 09/01/17 Range/Units 19:55 19:55 19:55 WBC (4.3-11.1) K/mcL RBC (4.19-5.50) M/mcL Hgb (12.9-16.9) g/dL Hct (37.5-50.1) % MCV (83.0-100.0) fL MCH (28.0-33.3) pg MCHC (31.6-35.5) g/dL RDW (11.5-14.5) % Plt Count (140-400) K/mcL MPV (9.4-12.4) fL Immature Gran % (0-4) % Seg Neutrophils % % Lymphocytes % % Monocytes % % Eosinophils % % Basophils % % Neutrophils # (1.6-8.9) K/mcL Lymphocytes # (0.6-4.6) K/mcL Monocytes # (0.0-1.3) K/mcL Eosinophils # (0.0-0.6) K/mcL Basophils # (0.0-0.2) K/mcL D-Dimer (0-500) ng/mLFEU Sodium (136-145) mEq/L Potassium (3.5-4.5) mEq/L Chloride (98-109) mEq/L Carbon Dioxide (19-29) mEq/L BUN (8-26) mg/dL Creatinine (0.72-1.25) mg/dL Est GFR ( Amer) (> 60) Est GFR (Non-Af Amer) (> 60) BUN/Creatinine Ratio (6-26) Glucose (70-99) mg/dL Calculated Osmolality (280-300) Lactic Acid (0.5-2.2) mmol/L Calcium (8.6-10.8) mg/dL Troponin I 0.01 (0-0.03) ng/mL B-Natriuretic Peptide 32 (0-100) pg/mL Specimen Rejected Hemolyzed 09/01/17 Range/Units 21:08 WBC (4.3-11.1) K/mcL RBC (4.19-5.50) M/mcL Hgb (12.9-16.9) g/dL Hct (37.5-50.1) % MCV (83.0-100.0) fL MCH (28.0-33.3) pg MCHC (31.6-35.5) g/dL RDW (11.5-14.5) % Plt Count (140-400) K/mcL MPV (9.4-12.4) fL Immature Gran % (0-4) % Seg Neutrophils % % Lymphocytes % % Monocytes % % Eosinophils % % Basophils % % Neutrophils # (1.6-8.9) K/mcL Lymphocytes # (0.6-4.6) K/mcL Monocytes # (0.0-1.3) K/mcL Eosinophils # (0.0-0.6) K/mcL Basophils # (0.0-0.2) K/mcL D-Dimer (0-500) ng/mLFEU Sodium (136-145) mEq/L Potassium (3.5-4.5) mEq/L Chloride (98-109) mEq/L Carbon Dioxide (19-29) mEq/L BUN (8-26) mg/dL Creatinine (0.72-1.25) mg/dL Est GFR ( Amer) (> 60) Est GFR (Non-Af Amer) (> 60) BUN/Creatinine Ratio (6-26) Glucose (70-99) mg/dL Calculated Osmolality (280-300) Lactic Acid 2.0 (0.5-2.2) mmol/L Calcium (8.6-10.8) mg/dL Troponin I (0-0.03) ng/mL B-Natriuretic Peptide (0-100) pg/mL Specimen Rejected - Radiology Data Radiology results reviewed: Yes I reviewed the patient's radiology results. - EKG Data EKG #1 EKG attestation: Yes I reviewed and interpreted this EKG. EKG results narrative: EKG done at 1943 review myself and the attending shows sinus tachycardia at a rate of 104, OR interval 136, QRS 93, QTC 398 with a leftward axis deviation. There is no acute ST changes. No acute T-wave changes. He has no signs of hypertrophy or heart strain. No signs of heart blocks. No signs of heart blocks. No signs of WPW/Brugada syndrome. This is compared with an old EKG done on 08/18/17 which also showed sinus tachycardia with no acute changes. Attestation Statement - Attestation Attestation: I, Fernando Gonzalez DO, examined this patient [id number] and my medical decision-making was reviewed with Dr. Fernando Bland, Resident Physician. I agree with the documented findings, disposition and treatment plan as described except to the extent set forth below. Please see my progress notes for details. 62-year-old male presents to emergency room with shortness of breath tachycardia very similar to his previous exacerbation of congestive heart failure. Patient describes this as identical as always other issues in the past. Patient denies chest pain fevers chills nausea vomiting or diarrhea. Denies headache or vision change. Patient does have chronic orthopnea along with frothy pink sputum when he lays flat. He has exertional dyspnea and heaviness in his chest along with her weight gain in his abdomen according to him. Currently he denies fevers chills headaches vision changes. Patient is concerning for cardiac versus pulmonary source including congestive heart failure, fluid overload, cardiac stress ischemia. EKG shows stable rhythm at this point with no acute signs of ST segment elevation. Troponin is negative and his BNP is negative. Chest x-ray does show increasing interstitial markings concerning for pulmonary congestion. IV Lasix given at this time to help with symptoms. Heart rate has come down after pain medications were provided secondary to his chronic left shoulder pain as well as the increased work of breathing. Patient otherwise shows little no acute signs of decompensation or concern for medical issues at this point aside her congestive heart failure. Patient will be admitted for further evaluation diuresis and definitive management. See detailed documentation of physical exam, medical intervention, medical decision-making and disposition and the resident physician 's note. No critical care was provided to this patient at this time. 1015 Chest x-ray is concerning for pulmonary congestion. Labs are otherwise unremarkable. Patient to be given IV Lasix and admitted for what appears to be congestive heart failure exacerbation with no acute signs of cardiac strain or stress. Patient fell a couple with this plan. Hospitals contacted and informed. Patient stable to time of admission.
[2017-09-01] MEDS ORDERED: Furosemide 40 MG/4 ML VIAL IVP ONE (21:07)
[2017-09-01] MEDS ORDERED: *HR* HYDROmorphone (PF) 1 MG/ML SYRINGE IVP ONE (22:01)
[2017-09-02] MEDS ORDERED: *HR* OxyCODONE Immed Rel 5 MG TABLET PO ONE (01:09)
--- NOTE | 2017-09-02 08:15 | Internal Med History&Physical ---
Date of Encounter: 09/02/17 Time of Encounter: 08:13 Assessment and Plan (1) Acute bronchitis Current visit: Yes Status: Acute We will start the patient on azithromycin since he was a prior smoker, around- the-clock nebulizer treatment. Patient has some expiratory wheezing he wanted to avoid steroids for now. He is not in respiratory distress. will see his response with nebulizer treatments. Qualifiers: Qualified Code(s): J20.9 - Acute bronchitis, unspecified (2) Elevated d-dimer Current visit: Yes Status: Acute Less likely pulmonary embolism. Patient is already on anticoagulation was Xarelto. However because of dimer was elevated I will get a VQ scan. (3) Atrial fibrillation Current visit: Yes Status: Acute Continue anticoagulation was Xarelto. Qualifiers: Qualified Code(s): I48.91 - Unspecified atrial fibrillation (4) CHF (congestive heart failure) Current visit: Yes Status: Chronic Lasix 40 mg IV daily. Qualifiers: Congestive heart failure type: unspecified congestive heart failure type Congestive heart failure chronicity: acute on chronic Qualified Code(s): I50.9 - Heart failure, unspecified Internal Medicine - H&P: HPI Chief complaint: sob History of present illness: Mr. Cohen is a 62 year old male with multiple medical problems including congestive heart failure (does not recall having an angiogram before), paroxysmal atrial fibrillation on anticoagulation was Xarelto presents to the emergency room yesterday with the main complaint shortness of breath. For the past 2 days patient has been short of breath with minimal exertion. He is also been noticing shortness of breath when he lays on his back improves with setting up. He has been having dry nonproductive cough. He Was a smoker not diagnosed with COPD before. He denies any fevers or chills. No chest pain. Past Med Surg Social Fam HX - Past Medical History Medical history: CHF, hypertension Psychiatric history: no psych history - Past Surgical History Surgical History: appendectomy - Social History Smoking Status: Current every day smoker Smokeless Tobacco Status: No Alcohol use: none Drug use: none - Family History Mother History Unknown: Yes Living Status: Cause of : heart problems Hx Family Endocrine Disorder: Yes (DM) Internal Medicine - H&P: Meds Atorvastatin [Lipitor] 40 mg PO HS 05/15/17 [History] Carvedilol [Coreg] 25 mg PO BID 05/15/17 [History] Furosemide [Lasix] 40 mg PO DAILY 05/15/17 [History] Gabapentin [Neurontin] 800 mg PO QID 05/15/17 [History] Isosorbide MONOnitrate [Isosorbide Mononitrate ER] 120 mg PO DAILY 05/15/17 [ History] Potassium Chloride [Klor-Con 10] 10 meq PO DAILY 05/15/17 [History] Rivaroxaban [Xarelto] 20 mg PO DAILY 05/15/17 [History] Insulin Glargine [Lantus] 32 unit SQ HS 08/18/17 [History] Losartan Potassium [Cozaar] 50 mg PO BID 08/18/17 [History] Metformin HCl [Glucophage] 1,000 mg PO BID 08/18/17 [History] Oxycodone HCl 20 mg PO Q6H PRN #56 tab 08/21/17 [Rx] 3 Allergy/AdvReac Type Severity Reaction Status Date / Time aspirin [ASA] Allergy See Verified 09/01/17 19:45 Comments NSAIDS (Non-Steroidal Allergy See Verified 09/01/17 19:45 Anti-Inflamma Comments acetaminophen [From Tylenol] AdvReac See Verified 09/01/17 19:45 Comments All Systems PM: A 10-system review of systems was performed and is negative for pertinent findings except as documented above in the HPI. Review of systems: In point review of systems is negative except for HPI - Constitutional Vitals: Temp Pulse Resp BP Pulse Ox 97.6 F 91 17 134/86 95 09/02/17 06:59 09/02/17 06:59 09/02/17 06:59 09/02/17 06:59 09/02/17 06:59 Exam: Gen.: patient is alert oriented times 3 cardiac: normal S1 S2 no additional sounds or murmurs chest: slightly diminished air entry, scattered expiratory wheeze abdomen soft nontender nondistended normal bowel sounds lower extremity trace swelling. Neuro: no new focal deficits Internal Med - H&P Results - Labs CBC & Chem 7: 09/01/17 19:55 09/01/17 19:55
[2017-09-02] MEDS: Azithromycin 500 MG in D5% in Water 250 ML IVPB SCH (08:48)
[2017-09-02] MEDS: Isosorbide MONOnitrate (24 HR) 60 MG TAB.ER.24H PO SCH (08:48)
[2017-09-02] MEDS: Gabapentin 400 MG CAPSULE PO SCH ×4 (08:48→20:51)
[2017-09-02] MEDS: Furosemide 40 MG/4 ML VIAL IVP SCH (08:48)
[2017-09-02] MEDS: *HR* Rivaroxaban 10 MG TABLET PO SCH (08:48)
[2017-09-02] MEDS: *HR* OxyCODONE Immed Rel 5 MG TABLET PO PRN ×3 (08:53→20:53)
[2017-09-02] MEDS: Ipratropium/Albuterol Neb 3 ML IH SCH ×3 (10:40→22:39)
[2017-09-02] MEDS: Insulin LISPRO 300 UNITS/3 ML VIAL SQ SCH ×3 (12:16→21:02)
[2017-09-02] MEDS: Insulin DETEMIR 100 UNIT/ML X5UNITS SQ SCH (20:57)
[2017-09-03] MEDS: Insulin LISPRO 300 UNITS/3 ML VIAL SQ SCH ×5 (00:12→22:08)
[2017-09-03] MEDS: Ipratropium/Albuterol Neb 3 ML IH SCH ×4 (04:06→21:39)
[2017-09-03] MEDS: *HR* OxyCODONE Immed Rel 5 MG TABLET PO PRN ×4 (04:14→23:27)
[2017-09-03] MEDS: Isosorbide MONOnitrate (24 HR) 60 MG TAB.ER.24H PO SCH (09:08)
[2017-09-03] MEDS: *HR* Rivaroxaban 10 MG TABLET PO SCH (09:08)
[2017-09-03] MEDS: Furosemide 40 MG/4 ML VIAL IVP SCH (09:08)
[2017-09-03] MEDS: Gabapentin 400 MG CAPSULE PO SCH ×4 (09:09→22:07)
[2017-09-03] MEDS: Azithromycin 500 MG in D5% in Water 250 ML IVPB SCH (09:10)
--- NOTE | 2017-09-03 10:04 | Internal Med Progress Note ---
Date of Encounter: 09/03/17 Time of Encounter: 10:01 - Assessment and plan (1) COPD (chronic obstructive pulmonary disease) with acute bronchitis Current Visit: Yes Status: Acute Assessment and plan: Most likely patient has COPD. He has associated acute bronchitis. Will continue aerosols, oxygen as needed, abx. Hold steroids. Add Mucinex today. (2) CHF (congestive heart failure) Current Visit: Yes Status: Chronic Assessment and plan: BNP normal on admission. Currently on IV Lasix. Clinically he is improving. Will continue IV today and switch tomorrow. Qualifiers: Congestive heart failure type: diastolic Congestive heart failure chronicity: chronic Qualified Code(s): I50.32 - Chronic diastolic (congestive ) heart failure (3) HTN (hypertension) Current Visit: No Status: Chronic Assessment and plan: Controlled on current regimen at this time. Qualifiers: Hypertension type: essential hypertension Qualified Code(s): I10 - Essential (primary) hypertension (4) Atrial fibrillation Current Visit: Yes Status: Chronic Assessment and plan: On chronic Xarelto. Qualifiers: Atrial fibrillation type: paroxysmal Qualified Code(s): I48.0 - Paroxysmal atrial fibrillation (5) Diabetes Current Visit: No Status: Acute Assessment and plan: Continue on accuchecks and coverage as well as Lantus. Blood sugar fluctuating. Hold steroids. Qualifiers: Diabetes mellitus type: type 2 Diabetes mellitus complication status: with hyperglycemia Diabetes mellitus intermediate insulin use: with terminal clerk use Qualified Code(s): E11.65 - Type 2 diabetes mellitus with hyperglycemia; Z79.4 - middle or intermediate school principal (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 of insulin; Z79.4 - middle or intermediate school principal (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 of insulin ; Z79.4 - middle or intermediate school principal (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 of insulin; Z79.4 - custodial (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 of insulin (6) Tobacco abuse Current Visit: Yes Status: Chronic Assessment and plan: Cessation counselling. (7) Rotator cuff disorder Current Visit: No Status: Chronic Assessment and plan: To follow up with Dr. Carnes. Qualifiers: Laterality: left Qualified Code(s): M67.912 - Unspecified disorder of synovium and tendon, left shoulder (8) Reflex sympathetic dystrophy of the lower limb Current Visit: Yes Status: Chronic Assessment and plan: Sees pain management. Qualifiers: Laterality: left Qualified Code(s): G90.522 - Complex regional pain syndrome I of left lower limb - Subjective Interval history: Mr. Cohen is currently admitted for acute exac COPD. He remains moderate to high risk due to potential for worsening respiratory status. Mr Cohen is doing a little better today. He is still coughing a lot and has a lot of chest congestion. He is still dyspneic with exertion but can lie down now. He does not want steroids as his blood sugar escalates. No fever or chills. Continues to have a lot of pain in his L shoulder. Awaiting further orthopedic plans. - Constitutional Vitals: Temp Pulse Resp BP Pulse Ox 97.7 F 70 18 137/82 99 09/03/17 07:13 09/03/17 07:13 09/03/17 07:13 09/03/17 07:13 09/03/17 07:13 General appearance: Present: A&O X 3, pleasant, answers questions appropriately - Head Head exam: Present: normocephalic - Eye Eye exam: Present: EOMI, conjuntiva pink - ENT ENT exam: Present: mucous membranes moist - Respiratory Respiratory exam: Present: rhonchi, wheezes Additional comments: Diffuse end exp wheeze and rhonchi heard. Moist cough. - Cardiovascular Cardiovascular exam: Present: distant heart sounds, RRR. Absent: tachycardia - GI/Abdominal GI/Abdominal exam: Present: soft. Absent: tenderness - Extremities Exam Extremities exam: Present: warm. Absent: calf tenderness, mottling - Neurological Exam Neurological exam: Present: alert, oriented X3 - Skin Skin exam: Present: dry, warm. Absent: rash Internal Medicine: Result - Labs CBC & Chem 7: 09/01/17 19:55 09/01/17 19:55 Labs: Cardiac Enzymes 09/02/17 Range/Units 14:09 Troponin I 0.01 (0-0.03) ng/mL - ABG Interpretation ABG results: PT/INR, D-dimer D-Dimer 551 ng/mLFEU (0-500) H 09/01/17 19:55 Consult Discharge Plan - Plan [facility]errals: [facility] [Primary Care Provider] -
--- NOTE | 2017-09-03 10:59 | Electrocardiograph Report ---
[place] [id number] Test Date: 2017-09-01 Pat Name: Anjel Cohen Department: 104 Room: [facility] Gender: M Dinkey Dispatcher: : 1955 Requested By: Fernando Bland Order Number: [id number] Reading MD: Dunia Souza Measurements Intervals [place] Rate: 104 P: 55 [place]: 136 QRS: -1 QRSD: 93 T: 73 QT: 338 QTc: 398 Interpretive Statements SINUS TACHYCARDIA NONSPECIFIC ST & T-WAVE ABNORMALITY ABNORMAL RHYTHM ECG Electronically Signed On 09-03-2017 10:57:47 EDT by Dunia Souza
[2017-09-03] MEDS: Insulin DETEMIR 100 UNIT/ML X5UNITS SQ SCH (22:10)
[2017-09-04] MEDS: Ipratropium/Albuterol Neb 3 ML IH SCH ×4 (04:41→22:18)
[2017-09-04] MEDS: *HR* OxyCODONE Immed Rel 5 MG TABLET PO PRN ×4 (05:27→22:41)
[2017-09-04 05:51] LABS: Hematocrit 38.5 % (37.5-50.1); Hemoglobin 13.3 g/dL (12.9-16.9); Mean Corpuscular HGB Conc 34.5 g/dL (31.6-35.5); Mean Corpuscular Hemoglobin 30.3 pg (28.0-33.3); Mean Corpuscular Volume 87.7 fL (83.0-100.0); Mean Platelet Volume 10.6 fL (9.4-12.4); Platelet Count 151 K/mcL (140-400); Red Blood Count 4.39 M/mcL (4.19-5.50)
[2017-09-04 06:07] LABS: BUN/Creatinine Ratio 29 (6-26); Calcium 9.1 mg/dL (8.6-10.8); Carbon Dioxide 26 mEq/L (19-29); Chloride 103 mEq/L (98-109); Glucose 277 mg/dL (70-99); Magnesium 2.5 mg/dL (1.6-2.6); Osmolality,Calculated 301 (280-300); Potassium 4.5 mEq/L (3.5-4.5); Sodium 138 mEq/L (136-145); eGFR For African Americans > 60 (> 60); eGFR For Non-African Americans > 60 (> 60)
[2017-09-04 06:08] LABS: Blood Urea Nitrogen 28 mg/dL (8-26)
[2017-09-04] MEDS: Furosemide 40 MG/4 ML VIAL IVP SCH (10:37)
[2017-09-04] MEDS: *HR* Rivaroxaban 10 MG TABLET PO SCH (10:38)
[2017-09-04] MEDS: Gabapentin 400 MG CAPSULE PO SCH ×4 (10:38→22:42)
[2017-09-04] MEDS: Isosorbide MONOnitrate (24 HR) 60 MG TAB.ER.24H PO SCH (10:39)
[2017-09-04] MEDS: Azithromycin 500 MG in D5% in Water 250 ML IVPB SCH (10:40)
[2017-09-04] MEDS: Insulin LISPRO 300 UNITS/3 ML VIAL SQ SCH ×4 (10:40→22:43)
--- NOTE | 2017-09-04 10:53 | Internal Med Progress Note ---
Date of Encounter: 09/04/17 Time of Encounter: 10:53 - Assessment and plan (1) COPD (chronic obstructive pulmonary disease) with acute bronchitis Current Visit: Yes Status: Acute Assessment and plan: Continues to have a lot of secretions. Unable to take steroids. Add Mucomyst today. Recheck 2 view CXR. Add Ceftriaxone. (2) CHF (congestive heart failure) Current Visit: Yes Status: Chronic Assessment and plan: Continues on IV Lasix. Appears to be euvolemic. Recheck CXR today. Qualifiers: Congestive heart failure type: diastolic Congestive heart failure chronicity: chronic Qualified Code(s): I50.32 - Chronic diastolic (congestive ) heart failure (3) HTN (hypertension) Current Visit: No Status: Chronic Assessment and plan: Controlled on current regimen at this time. Qualifiers: Hypertension type: essential hypertension Qualified Code(s): I10 - Essential (primary) hypertension (4) Atrial fibrillation Current Visit: Yes Status: Chronic Assessment and plan: On chronic Xarelto. Qualifiers: Atrial fibrillation type: paroxysmal Qualified Code(s): I48.0 - Paroxysmal atrial fibrillation (5) Diabetes Current Visit: No Status: Acute Assessment and plan: Continue on accuchecks and coverage as well as Lantus. Blood sugar overall better today. Continue current management. Qualifiers: Diabetes mellitus type: type 2 Diabetes mellitus complication status: with hyperglycemia Diabetes mellitus assisted insulin use: with assisted use Qualified Code(s): E11.65 - Type 2 diabetes mellitus with hyperglycemia; Z79.4 - manager terminal (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 of insulin; Z79.4 - manager terminal (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 of insulin ; Z79.4 - USP (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 of insulin; Z79.4 - manager terminal (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 of insulin (6) Tobacco abuse Current Visit: Yes Status: Chronic Assessment and plan: Cessation counselling. (7) Rotator cuff disorder Current Visit: No Status: Chronic Assessment and plan: To follow up with Dr. Carnes. Qualifiers: Laterality: left Qualified Code(s): M67.912 - Unspecified disorder of synovium and tendon, left shoulder (8) Reflex sympathetic dystrophy of the lower limb Current Visit: Yes Status: Chronic Assessment and plan: Sees pain management. Qualifiers: Laterality: left Qualified Code(s): G90.522 - Complex regional pain syndrome I of left lower limb - Subjective Interval history: Mr. Cohen is currently admitted for acute exac COPD. He remains moderate to high risk due to potential for worsening respiratory status. Mr Cohen is still coughing quite a bit. He can't seem to bring up secretions. No fever or chills. Sugars fluctuating - overall better today. Most of secretions are anterior chest area. - Constitutional Vitals: Temp Pulse Resp BP Pulse Ox 97.7 F 70 16 121/82 93 09/04/17 07:45 09/04/17 07:45 09/04/17 07:45 09/04/17 07:45 09/04/17 07:45 General appearance: Present: A&O X 3, pleasant, answers questions appropriately - Head Head exam: Present: normocephalic - Eye Eye exam: Present: EOMI, conjuntiva pink - ENT ENT exam: Present: mucous membranes moist - Respiratory Respiratory exam: Present: rhonchi, wheezes. Absent: respiratory distress Additional comments: More rhonchi present anteriorly. - Cardiovascular Cardiovascular exam: Present: distant heart sounds, RRR. Absent: tachycardia - GI/Abdominal GI/Abdominal exam: Present: normal bowel sounds, soft. Absent: tenderness - Extremities Exam Extremities exam: Present: warm - Neurological Exam Neurological exam: Present: alert, oriented X3 - Skin Skin exam: Present: dry, warm Internal Medicine: Result - Labs CBC & Chem 7: 09/04/17 05:12 09/04/17 05:12 Labs: Short CBC 09/04/17 Range/Units 05:12 WBC 7.0 (4.3-11.1) K/mcL Hgb 13.3 D (12.9-16.9) g/dL Hct 38.5 (37.5-50.1) % Plt Count 151 (140-400) K/mcL BMP 09/04/17 05:12 Sodium 138 Potassium 4.5 Chloride 103 Carbon Dioxide 26 BUN 28 H D Creatinine 0.95 Glucose 277 H Calcium 9.1 - ABG Interpretation ABG results: PT/INR, D-dimer D-Dimer 551 ng/mLFEU (0-500) H 09/01/17 19:55 Consult Discharge Plan - Plan [facility]errals: [facility] [Primary Care Provider] -
[2017-09-04] MEDS ORDERED: cefTRIAXone 1,000 MG in Water for inj. (sterile) 10 ML IVPB SCH (13:00)
[2017-09-04] MEDS: Acetylcysteine 10% 2 ML INHSOL IH SCH ×2 (15:39→22:18)
[2017-09-04 18:09] LABS: CK-BB (CK isoenzymes) 0 % (0-0); CK-MB (CK isoenzymes) 0 % (0-4); CK-MM (CK-isoenzymes) 100 % (96-100)
[2017-09-04] MEDS: Insulin DETEMIR 100 UNIT/ML X5UNITS SQ SCH (22:43)
[2017-09-05] MEDS: Acetylcysteine 10% 2 ML INHSOL IH SCH ×2 (03:52→11:07)
[2017-09-05] MEDS: Ipratropium/Albuterol Neb 3 ML IH SCH ×2 (03:52→11:07)
[2017-09-05] MEDS: *HR* OxyCODONE Immed Rel 5 MG TABLET PO PRN ×2 (04:35→10:53)
[2017-09-05 05:04] LABS: Hemoglobin 13.1 g/dL (12.9-16.9); Mean Corpuscular HGB Conc 33.6 g/dL (31.6-35.5); Mean Corpuscular Volume 89.2 fL (83.0-100.0); Mean Platelet Volume 10.7 fL (9.4-12.4); Platelet Count 156 K/mcL (140-400); Red Blood Count 4.37 M/mcL (4.19-5.50); Red Cell Distribution Width 14.8 % (11.5-14.5)
[2017-09-05 05:24] LABS: BUN/Creatinine Ratio 32 (6-26); Blood Urea Nitrogen 34 mg/dL (8-26); Calcium 9.4 mg/dL (8.6-10.8); Carbon Dioxide 29 mEq/L (19-29); Chloride 103 mEq/L (98-109); Glucose 295 mg/dL (70-99); Osmolality,Calculated 309 (280-300); Potassium 4.7 mEq/L (3.5-4.5); Sodium 140 mEq/L (136-145); eGFR For African Americans > 60 (> 60); eGFR For Non-African Americans > 60 (> 60)
[2017-09-05 07:01] VITALS: BP 143/84
[2017-09-05 08:29] LABS: CK Total (Ck Isoenzymes) 233 U/L (20-200)
[2017-09-05] MEDS: *HR* Rivaroxaban 10 MG TABLET PO SCH (09:03)
[2017-09-05] MEDS: Isosorbide MONOnitrate (24 HR) 60 MG TAB.ER.24H PO SCH (09:03)
[2017-09-05] MEDS: Furosemide 40 MG/4 ML VIAL IVP SCH (09:03)
[2017-09-05] MEDS: Gabapentin 400 MG CAPSULE PO SCH ×2 (09:03→12:17)
[2017-09-05] MEDS: Insulin LISPRO 300 UNITS/3 ML VIAL SQ SCH ×2 (09:04→12:16)
--- NOTE | 2017-09-05 10:42 | Discharge Summary ---
<Marcin Aguilar - Last Filed: 09/05/17 10:39> Date of Encounter: 09/05/17 Time of Encounter: 09:30 - Discharge Diagnosis (1) COPD (chronic obstructive pulmonary disease) with acute bronchitis Priority: Primary Status: Acute (2) CHF (congestive heart failure) Priority: Primary Status: Chronic Qualifiers: Congestive heart failure type: diastolic Congestive heart failure chronicity: chronic Qualified Code(s): I50.32 - Chronic diastolic (congestive ) heart failure (3) Atrial fibrillation Priority: Primary Status: Chronic Qualifiers: Atrial fibrillation type: paroxysmal Qualified Code(s): I48.0 - Paroxysmal atrial fibrillation (4) Diabetes Priority: Primary Status: Chronic Qualifiers: Diabetes mellitus type: type 2 Diabetes mellitus complication status: with hyperglycemia Diabetes mellitus keno terminal operator insulin use: with keno terminal operator use Qualified Code(s): E11.65 - Type 2 diabetes mellitus with hyperglycemia; Z79.4 - MCC (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 of insulin; Z79.4 - MCC (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 of insulin ; Z79.4 - MCC (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 of insulin; Z79.4 - MCC (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 of insulin (5) HTN (hypertension) Priority: Primary Status: Chronic Qualifiers: Hypertension type: essential hypertension Qualified Code(s): I10 - Essential (primary) hypertension (6) Reflex sympathetic dystrophy of the lower limb Priority: Primary Status: Chronic Qualifiers: Laterality: left Qualified Code(s): G90.522 - Complex regional pain syndrome I of left lower limb (7) Rotator cuff disorder Priority: Primary Status: Chronic Qualifiers: Laterality: left Qualified Code(s): M67.912 - Unspecified disorder of synovium and tendon, left shoulder (8) Tobacco abuse Priority: Primary Status: Chronic - Discharge Medications Prescriptions: Albuterol Sulfate [Albuterol Inhaler] 2 puff IH Q6HR #1 hfa.aer.ad Cefdinir [Omnicef] 300 mg PO BID #8 capsule GuaiFENesin ER [Mucinex] 1,200 mg PO BID #30 tbbp.12hr Home Medications: Atorvastatin [Lipitor] 40 mg PO HS 05/15/17 [History] Carvedilol [Coreg] 25 mg PO BID 05/15/17 [History] Furosemide [Lasix] 40 mg PO DAILY 05/15/17 [History] Gabapentin [Neurontin] 800 mg PO QID 05/15/17 [History] Isosorbide MONOnitrate [Isosorbide Mononitrate ER] 120 mg PO DAILY 05/15/17 [ History] Potassium Chloride [Klor-Con 10] 10 meq PO DAILY 05/15/17 [History] Rivaroxaban [Xarelto] 20 mg PO DAILY 05/15/17 [History] Insulin Glargine [Lantus] 32 unit SQ HS 08/18/17 [History] Losartan Potassium [Cozaar] 50 mg PO BID 08/18/17 [History] Metformin HCl [Glucophage] 1,000 mg PO BID 08/18/17 [History] Oxycodone HCl 20 mg PO Q6H PRN #56 tab 08/21/17 [Rx] Albuterol Sulfate [Albuterol Inhaler] 2 puff IH Q6HR #1 hfa.aer.ad 09/05/17 [Rx] Cefdinir [Omnicef] 300 mg PO BID #8 capsule 09/05/17 [Rx] GuaiFENesin ER [Mucinex] 1,200 mg PO BID #30 tbbp.12hr 09/05/17 [Rx] Allergies/Adverse Reactions: 3 Allergy/AdvReac Type Severity Reaction Status Date / Time aspirin [ASA] Allergy See Verified 09/01/17 19:45 Comments NSAIDS (Non-Steroidal Allergy See Verified 09/01/17 19:45 Anti-Inflamma Comments acetaminophen [From Tylenol] AdvReac See Verified 09/01/17 19:45 Comments Date of admission: 09/02/17 08:34 Primary care physician: PCP [place] Discharging clinician: Marcin Aguilar Anticipated date of discharge: 09/05/17 - Patient Status Disposition: Home, Self-Care Condition: Fair Functional capacity at discharge: independent ambulation Overall status at discharge: patient is progressing back to baseline - Discharge Instructions Instructions: Albuterol (By breathing), Guaifenesin (By mouth), Cefdinir (By mouth), Heart Failure (DC) [facility]: [facility] Care Provider[facility] - (PLEASE FOLLOW UP W/TEAM 3 AT [facility] IN 5-7 DAYS AFTER BEING DISCHARGED, MESSAGE LEFT WITH TEAM 3 TO CALL YOU WITH APPOINTMENT DAY AND TIME. IF YOU HAVE NOT RECEIVED AT CALL FOR APPOINTMENT INFORMATION BY , 09/07/17 PLEASE CALL THE OFFICE [phone]) Additional Instructions: Please return to emergency department if worsening shortness of breath, development of chest pain, or new lightheadedness. Take all medications as prescribed: Albuterol inhaler 2 puffs every 6 hours as needed for shortness of breath Omnicef (cefdinir) 1 capsule every 12 hours for 4 days Guaifenesin take 1 every 12 hours as needed for cough Continue other home medications Please follow-up with her PCP in 1-2 weeks - Diet and Activity Activity: increase activity as tolerated Diet: low fat, low cholesterol, low salt diet Interval History: Patient reports he is doing well overall today, though he does feel "raspy" still. He states he still has some shortness of breath when up and walking, feels this might be due to deconditioning. He does report having a dry cough. Worse when lying flat, and improves when sitting upright. He denies fever/ chills, denies nausea/vomiting. Hospital course: Mr. Cohen is a 62 year old male with past medical history of CHF, COPD, atrial fibrillation, hypertension, and reports pain every day smoker who presented to [facility] on 09/02/17 with 2 days shortness of breath. He reported that the shortness of breath was worse with lying down and associated with a nonproductive cough. His. He had a respiratory infection without obvious signs of pneumonia on chest x-ray at admission. He was treated with bronchodilators, cough medication, and antibiotics was not given steroids due to concern of uncontrolled blood sugar while taking them. He slowly improved over a couple days, though still felt raspy. Chest x-ray performed prior to discharge showed patchy atelectasis, possibly indicating respiratory infection, but patient continued improved subjectively. At the time of discharge patient is afebrile, not tachycardic, not tested, and maintaining decent oxygen saturation on room air. Patient feels safe for discharge with follow-up with PCP. - Time Spent with Patient Total time spent providing and/or coordinating discharge services: - Constitutional Vitals: Temp Pulse Resp BP Pulse Ox 98.0 F 71 15 143/84 95 09/05/17 06:00 09/05/17 06:00 09/05/17 06:00 09/05/17 06:00 09/05/17 06:00 General appearance: Present: A&O X 3, pleasant, answers questions appropriately Exam: General: Cooperative, pleasant, no acute distress, alert and oriented 3, answers questions appropriately HEENT: Normocephalic, atraumatic, Conjunctiva pink, sclera anicteric Respiratory: No accessory muscle usage, clear to auscultation bilaterally, no wheezes/rhonchi/rales appreciated Cardiovascular: Regular rate and rhythm, S1 and S2 present, no murmurs/rubs/ gallops/clicks appreciated Extremities: No calf tenderness, no pedal edema appreciated, warm, lower extremity pulses palpable and symmetrical Neurological: Alert and oriented 3, no facial droop, no focal deficits <Jimmy Loja - Last Filed: 09/05/17 17:49> Date of Encounter: 09/05/17 - Discharge Diagnosis (1) COPD (chronic obstructive pulmonary disease) with acute bronchitis Status: Acute (2) CHF (congestive heart failure) Priority: Secondary Status: Chronic Qualifiers: Congestive heart failure type: diastolic Congestive heart failure chronicity: chronic Qualified Code(s): I50.32 - Chronic diastolic (congestive ) heart failure (3) HTN (hypertension) Priority: Secondary Status: Chronic Qualifiers: Hypertension type: essential hypertension Qualified Code(s): I10 - Essential (primary) hypertension (4) Atrial fibrillation Priority: Secondary Status: Chronic Qualifiers: Atrial fibrillation type: paroxysmal Qualified Code(s): I48.0 - Paroxysmal atrial fibrillation (5) Diabetes Priority: Secondary Status: Chronic Qualifiers: Diabetes mellitus type: type 2 Diabetes mellitus complication status: with hyperglycemia Diabetes mellitus mcc insulin use: with keno terminal operator use Qualified Code(s): E11.65 - Type 2 diabetes mellitus with hyperglycemia; Z79.4 - intermediate frame tender (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 of insulin; Z79.4 - intermediate frame tender (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 of insulin ; Z79.4 - MCC (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 of insulin; Z79.4 - MCC (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 of insulin (6) Tobacco abuse Priority: Secondary Status: Chronic (7) Rotator cuff disorder Priority: Secondary Status: Chronic Qualifiers: Laterality: left Qualified Code(s): M67.912 - Unspecified disorder of synovium and tendon, left shoulder (8) Reflex sympathetic dystrophy of the lower limb Priority: Secondary Status: Chronic Qualifiers: Laterality: left Qualified Code(s): G90.522 - Complex regional pain syndrome I of left lower limb Date of admission: 09/02/17 08:34 Primary care physician: PCP [place] Hospital course: Mr. Cohen is a 62 year old male - Time Spent with Patient Total time spent providing and/or coordinating discharge services: 38min - Constitutional Vitals: Temp Pulse Resp BP Pulse Ox 98.0 F 71 16 143/84 99 09/05/17 06:00 09/05/17 06:00 09/05/17 11:08 09/05/17 06:00 09/05/17 11:08 - Attending Attestation I examined this patient and my medical decision-making was reviewed with the Resident Physician on 09/05/17. I agree with the documented findings, disposition and treatment plan as described except to the extent set forth below. Mr Cohen has been admitted for acute exac COPD and uncontrolled BS. He has improved with treatment. He has not been on steroids due to hyperglycemia. He is now afebrile with stable vitals. He is ready for discharge home. Exam Alert. Comfortable Heart reg No wheeze today. Scant rhonchi Abd soft No edema Plan D/C home today Follow up with PCP.
[2017-09-05 18:00] LABS: CK-BB (CK isoenzymes) 0 % (0-0); CK-MB (CK isoenzymes) 0 % (0-4); CK-MM (CK-isoenzymes) 100 % (96-100)
[2017-09-06 07:32] LABS: CK Total (Ck Isoenzymes) 228 U/L (20-200)
== END 2017-09-05 13:30 | disposition home or self-care (01) | DRG 191 ==
LOC: 2NENU 19:35 → EMEROO 19:35 → 2NENU 22:11
PROVIDERS: ADMIT Internal Medicine; ATTEND Internal Medicine

== ENCOUNTER 2017-11-08 17:55 | Inpatient (IN) ==
[2017-11-08] MEDS ORDERED: Ipratropium/Albuterol Neb 3 ML IH ONE ×2 (19:10→22:30)
--- NOTE | 2017-11-08 19:12 | Emergency Department Note ---
START Narrative - START START: 62-year-old with a history of CHF who comes in with increasing shortness of breath. Patient has exertional dyspnea. Physical examination lungs are diminished with occasional rale in the base. We'll obtain lab work imaging patient will be taken main treatment area for further evaluation and treatment.
[2017-11-08] MEDS ORDERED: Furosemide 40 MG/4 ML VIAL IVP ONE (19:14)
[2017-11-08 20:10] LABS: Basophils # 0.1 K/mcL (0.0-0.2); Basophils % 0.9 %; Eosinophils # 0.1 K/mcL (0.0-0.6); Eosinophils % 1.6 %; Hematocrit 46.7 % (37.5-50.1); Immature Granulocytes % 0.1 % (0-4); Lymphocytes # 1.2 K/mcL (0.6-4.6); Lymphocytes % 17.9 %; Mean Corpuscular HGB Conc 34.3 g/dL (31.6-35.5); Mean Corpuscular Hemoglobin 29.1 pg (28.0-33.3); Mean Corpuscular Volume 85.1 fL (83.0-100.0); Mean Platelet Volume 10.4 fL (9.4-12.4); Monocytes # 0.9 K/mcL (0.0-1.3); Monocytes % 12.6 %; Neutrophils # 4.6 K/mcL (1.6-8.9); Platelet Count 144 K/mcL (140-400); Red Blood Count 5.49 M/mcL (4.19-5.50); Red Cell Distribution Width 13.9 % (11.5-14.5); Segmented Neutrophils % 66.9 %
[2017-11-08 20:19] LABS: BUN/Creatinine Ratio 24 (6-26); Blood Urea Nitrogen 23 mg/dL (8-23); Carbon Dioxide 26 mEq/L (23-29); Chloride 108 mEq/L (98-107); Glucose 117 mg/dL (70-105); Osmolality,Calculated 297 (280-300); Potassium 3.6 mEq/L (3.5-5.1); Sodium 141 mEq/L (136-145); eGFR For African Americans > 60 (> 60); eGFR For Non-African Americans > 60 (> 60)
[2017-11-08] MEDS ORDERED: Nitroglycerin 25 MG/250 ML INFUS..BTL IVC SCH (21:00)
--- NOTE | 2017-11-08 22:24 | Emergency Department Note ---
Disposition Clinical Impression: Exertional dyspnea CHF (congestive heart failure) Qualifiers: Congestive heart failure type: unspecified Congestive heart failure chronicity : unspecified Qualified Code(s): I50.9 - Heart failure, unspecified Disposition: Admitted As Inpatient Condition: Good [facility]errals: [facility] [Primary Care Provider[facility] - Forms: ED Satisfaction Letter Time of Disposition: 22:49 SOB HPI - General Chief Complaint: ED Shortness of Breath/Dyspnea Stated Complaint: ERNESTO, Bi-Lateral Leg Swelling Time Seen by Provider: 11/08/17 19:10 Source: patient Mode of arrival: ambulatory Limitations: no limitations Nursing Notes Reviewed: Yes Vital Signs Reviewed: Yes - History of Present Illness Patient presents by personal vehicle for evaluation of shortness of breath. He has a history of congestive heart failure and fluid overload. Patient feels like over the last several days he has had progressively worsening dyspnea the point now where he is unable to lie down or exert himself without any significant shortness of breath. Currently he is describing chest heaviness. Denies any chest pain fevers chills nausea vomiting or diarrhea. Denies any headache or vision changes this point. Main complaint is the chest heaviness and shortness of breath that appears to be secondary to fluid Pt Subjective Complaint: shortness of breath Onset (ago): day(s) Severity: none Consistency/Duration: constant Improves with: oxygen, upright position Worsens with: lying flat, exertion, movement, coughing Known history of: congestive heart failure Associated symptoms: Reports: cough Treatment prior to arrival: oxygen Cough present: Yes Cough Description: Voluntary - Related Data Home Medications Medication Instructions Recorded Confirmed Atorvastatin [Lipitor] 40 mg PO HS 05/15/17 11/08/17 Carvedilol [Coreg] 25 mg PO BID 05/15/17 11/08/17 Furosemide [Lasix] 40 mg PO DAILY 05/15/17 11/08/17 Gabapentin [Neurontin] 800 mg PO QID 05/15/17 11/08/17 Isosorbide MONOnitrate [Isosorbide 120 mg PO DAILY 05/15/17 11/08/17 Mononitrate ER] Potassium Chloride [Klor-Con 10] 10 meq PO DAILY 05/15/17 11/08/17 Rivaroxaban [Xarelto] 20 mg PO DAILY 05/15/17 11/08/17 Insulin Glargine [Lantus] 50 unit SQ 08/18/17 11/08/17 Losartan Potassium [Cozaar] 50 mg PO DAILY 08/18/17 11/08/17 Metformin HCl [Glucophage] 1,000 mg PO BID 08/18/17 11/08/17 Oxycodone HCl/Acetaminophen 1 each PO QID PRN 11/08/17 11/08/17 [Percocet 10-325 mg Tablet] Allergies Allergy/AdvReac Type Severity Reaction Status Date / Time aspirin [ASA] Allergy See Verified 11/08/17 19:13 Comments NSAIDS (Non-Steroidal Allergy See Verified 11/08/17 19:13 Anti-Inflamma Comments acetaminophen [From Tylenol] AdvReac See Verified 11/08/17 19:13 Comments All systems ED: reviewed and negative except as stated. Review of Systems: As Per HPI Constitutional: Denies: fever, chills, weakness Cardiovascular: Reports: dyspnea on exertion, orthopnea, edema. Denies: chest pain, palpitations, syncope Respiratory: Reports: cough, dyspnea. Denies: wheezes, hemoptysis, sputum production Gastrointestinal: Denies: nausea, vomiting, diarrhea Musculoskeletal: Denies: back pain, neck pain Neurological: Denies: headache Psychiatric: Denies: anxiety Past Medical History - Past Medical History Attestation: Yes The following information was validated with the patient. Source: patient Medical history: Reports: CHF, hypertension Surgical history: Reports: appendectomy Psychiatric history: Reports: no psych history - Social History Smoking Status: Current every day smoker Smokeless Tobacco Status: No Alcohol use: Reports: none Drug use: Reports: none Physical Exam - General Limitations: no limitations General appearance: alert - Head Head exam: atraumatic, normocephalic, normal inspection - Neck Neck exam: Present: normal inspection, full ROM, trachea midline. Absent: tenderness - Chest Chest inspection: Present: normal inspection, symmetric chest wall rise. Absent : tenderness - Respiratory Respiratory exam: Present: respiratory distress. Absent: wheezes, stridor, accessory muscle use - Cardiovascular Cardiovascular exam: Present: normal rhythm, tachycardia, normal heart sounds - Abdominal Exam Abdominal exam: Present: soft, Non-Tender, normal bowel sounds. Absent: tenderness, distention, guarding, rebound, rigidity, Ho's sign, Rovsing's sign, tenderness at McBurney's Point - Extremities Exam Extremities exam: Present: normal inspection, full ROM, normal capillary refill. Absent: tenderness - Back Exam Back exam: Present: normal inspection, full ROM. Absent: tenderness - Neurological Exam Neurological exam: Present: alert, oriented X3, CN II-XII intact, normal gait - Skin Skin exam: Present: warm, dry, intact, normal color Course Course Narrative: Patient seen and examined the time of arrival. See history of present illness. 62-year-old male presents to emergency room with complaint of shortness of breath orthopnea and exertional dyspnea. Patient has had this happen several times in the past when he had fluid overload. Patient currently denying any chest pain but does have slight chest pressure. He does have increased work of breathing. Some of this is better when he sitting upright and has oxygen applied. On physical exam is mild accessory muscle use. Patient also has crackles on exam. Trachea is midline. Heart is regular with tachycardia. Abdomen is soft with no specific distention guarding rigidity or peritoneal like symptoms. Patient does have pitting edema to the knees bilaterally. Pulses appear to be intact and symmetrical bilaterally at the DP and PT distributions of this time. Patient will have clinical treatment course started for what appears to be CHF exacerbation. Chest x-ray and labs were resulted prior to the patient being evaluated at the bedside. Chest x-ray does show what appears to be pulmonary congestion. Nitroglycerin drip started as well as BiPAP at this time. Patient was also given IV Lasix here. Patient will most likely need admission for definitive management and evaluation. Patient informed this point is comfortable this time. 35 minutes of critical care provided to the patient during his treatment course and evaluation. - Reevaluation(s) Reevaluation #1: Condition is feeling much better with the nitroglycerin drip. Patient has almost complete resolution of the chest pressure. Vital signs stabilized. Pain is resolved. Admission process will be completed. CT abdomen and on secondary to distended loops of bowel noted on chest x-ray. No other concerns or issues at this time. Breathing treatments and single dose of Ativan given outpatient symptoms Time: 22:47 Reevaluation #2: Patient is describing no pain at this time. Vital signs stabilized. Heart rate is 105 a mostly secondary to the DuoNeb was provided. Hospitalist Dr. Velasquez night of presentation symptoms in case. No other recommendations or concerns from her at this time. Patient will be admitted for definitive management evaluation what appears to be in acute CHF exacerbation Time: 23:47 Vital Signs Temperature 99.2 F 11/08/17 19:07 Pulse Rate 113 11/08/17 19:07 Respiratory Rate 28 11/08/17 19:07 Blood Pressure 156/83 11/08/17 19:07 O2 Sat by Pulse Oximetry 91 11/08/17 19:07 Temperature 99.2 F 11/08/17 19:07 Pulse Rate 105 11/08/17 23:42 Respiratory Rate 24 11/08/17 23:42 Blood Pressure 129/89 11/08/17 23:42 O2 Sat by Pulse Oximetry 94 11/08/17 23:42 Oxygen Delivery Oxygen Delivery Nasal Cannula Shortness of Breath/Dyspnea - MDM Narrative Medical decision making narrative: CHF, orthopnea, hypoxia - Medical Records Medical records reviewed: Yes I reviewed the patient's medical records. - Lab Data Lab results reviewed: Yes I reviewed the patient's lab results. Result diagrams: 11/08/17 19:55 11/08/17 19:55 Lab Results 11/08/17 11/08/17 11/08/17 Range/Units 19:55 19:55 19:55 WBC 6.9 (4.3-11.1) K/mcL RBC 5.49 (4.19-5.50) M/mcL Hgb 16.0 (12.9-16.9) g/dL Hct 46.7 (37.5-50.1) % MCV 85.1 (83.0-100.0) fL MCH 29.1 (28.0-33.3) pg MCHC 34.3 (31.6-35.5) g/dL RDW 13.9 (11.5-14.5) % Plt Count 144 (140-400) K/mcL MPV 10.4 (9.4-12.4) fL Immature Gran % 0.1 (0-4) % Seg Neutrophils % 66.9 % Lymphocytes % 17.9 % Monocytes % 12.6 % Eosinophils % 1.6 % Basophils % 0.9 % Neutrophils # 4.6 (1.6-8.9) K/mcL Lymphocytes # 1.2 (0.6-4.6) K/mcL Monocytes # 0.9 (0.0-1.3) K/mcL Eosinophils # 0.1 (0.0-0.6) K/mcL Basophils # 0.1 (0.0-0.2) K/mcL Sodium 141 (136-145) mEq/L Potassium 3.6 (3.5-5.1) mEq/L Chloride 108 H (98-107) mEq/L Carbon Dioxide 26 (23-29) mEq/L BUN 23 (8-23) mg/dL Creatinine 0.97 (0.70-1.30) mg/dL Est GFR ( Amer) > 60 (> 60) Est GFR (Non-Af Amer) > 60 (> 60) BUN/Creatinine Ratio 24 (6-26) Glucose 117 H (70-105) mg/dL Calculated Osmolality 297 (280-300) Lactic Acid 1.2 (0.5-2.2) mmol/L Calcium 9.0 (8.6-10.3) mg/dL Troponin I (< 0.04) ng/mL B-Natriuretic Peptide (Less than 100) pg/mL 11/08/17 11/08/17 Range/Units 19:55 19:55 WBC (4.3-11.1) K/mcL RBC (4.19-5.50) M/mcL Hgb (12.9-16.9) g/dL Hct (37.5-50.1) % MCV (83.0-100.0) fL MCH (28.0-33.3) pg MCHC (31.6-35.5) g/dL RDW (11.5-14.5) % Plt Count (140-400) K/mcL MPV (9.4-12.4) fL Immature Gran % (0-4) % Seg Neutrophils % % Lymphocytes % % Monocytes % % Eosinophils % % Basophils % % Neutrophils # (1.6-8.9) K/mcL Lymphocytes # (0.6-4.6) K/mcL Monocytes # (0.0-1.3) K/mcL Eosinophils # (0.0-0.6) K/mcL Basophils # (0.0-0.2) K/mcL Sodium (136-145) mEq/L Potassium (3.5-5.1) mEq/L Chloride (98-107) mEq/L Carbon Dioxide (23-29) mEq/L BUN (8-23) mg/dL Creatinine (0.70-1.30) mg/dL Est GFR ( Amer) (> 60) Est GFR (Non-Af Amer) (> 60) BUN/Creatinine Ratio (6-26) Glucose (70-105) mg/dL Calculated Osmolality (280-300) Lactic Acid (0.5-2.2) mmol/L Calcium (8.6-10.3) mg/dL Troponin I < 0.03 (< 0.04) ng/mL B-Natriuretic Peptide 12 (Less than 100) pg/mL - Radiology Data Radiology results reviewed: Yes I reviewed the patient's radiology results. Chest x-ray shows pulmonary congestion bilaterally in the lungs. No acute signs of infiltrate or infection - EKG Data EKG attestation: Yes I reviewed and interpreted this EKG. EKG results narrative: Initial EKG shows sinus tachycardia. No acute signs of ST segment elevation or myocardial infarction. Patient has stable interval at this time. Ventricular rate of 107. VT interval of 147. QRS duration of 86. QTC is 394. [place] is slightly leftward deviated. No comparable imaging study Critical Care Time Critical Care Time: Yes Total Critical Care Time: 35 Attestation: Critical care performed: Time is exclusive of separately billable procedures. Time includes: direct patient care, patient reassessment, coordination of patient care, interpretation of data (laboratory data, radiology data, and respiratory data), review of patient's medical records, medical consultation and documentation of patient care. Procedures included in critical care time: Procedures excluded from critical care time:
[2017-11-08] MEDS ORDERED: *HR* LORazepam 2 MG/ML VIAL IVP ONE (22:30)
[2017-11-08] MEDS ORDERED: Water for inj. (sterile) 10 ML IV ONE (22:35)
[2017-11-09] MEDS ORDERED: Ondansetron 4 MG/2 ML VIAL IVP PRN (00:43)
[2017-11-09] MEDS ORDERED: Naloxone 0.4 MG/ML INJ IVP PRN (00:43)
[2017-11-09] MEDS ORDERED: Ipratropium/Albuterol Neb 3 ML IH PRN (00:50)
[2017-11-09] MEDS ORDERED: Dextrose Gel 15 GM/37.5 ML TUBE PO PRN ×2 (00:52)
[2017-11-09] MEDS ORDERED: D5% in Water 1,000 ML IVC PRN (00:52)
[2017-11-09] MEDS ORDERED: *HR* Dextrose 50 % in Water (Syg) 50 ML SYRINGE IVP PRN (00:52)
[2017-11-09] MEDS ORDERED: Nitroglycerin 0.4 MG TAB.SUBL SL PRN (01:57)
[2017-11-09] MEDS: *HR* OxyCODONE/APAP 10/325 TABLET PO PRN ×3 (02:23→20:21)
--- NOTE | 2017-11-09 03:24 | Internal Med History&Physical ---
Date of Encounter: 11/08/17 Time of Encounter: 23:30 Assessment and Plan (1) Diabetes Current visit: No Status: Chronic Cont basal and sliding scale insulin. 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 CXR shows pulmonary edema. Pt has increased exertional intolerance. Consider CHF exacerbation. Pt's BNP is WNL, probably because of his high BMI. - Strict I/O - Cardiac and fluid restriction diet. - Lasix IV 40 mg bid. Qualifiers: Congestive heart failure type: diastolic Qualified Code(s): I50.33 - Acute on chronic diastolic (congestive) heart failure (3) Atrial fibrillation Current visit: No Status: Chronic Currently sinus rhythm, cont xarelto for AC. Qualifiers: Atrial fibrillation type: paroxysmal Qualified Code(s): I48.0 - Paroxysmal atrial fibrillation (4) Tobacco abuse Current visit: No Status: Chronic Smoking cessation education. Pt said he doesn't want nicotine patch. (5) DVT prophylaxis Current visit: Yes Status: Acute Pt is on xarelto. Internal Medicine - H&P: HPI Chief complaint: SOB Admitted From: Home Plans for Post Hospital Care: Home History of present illness: Mr. Cohen is a 62 year old male with Hx of Diastolic CHF, PAF on xarelto, DM, HTN, present to ER for increased SOB and exertional intolerance. Pt said the worsening SOB started from yesterday, pt cannot breath on movement. He can walk only 10 feet on flat floor. Ph cannot lay flat for sleep. Pt denies chest pain but c/o chest heaviness. Pt has mild cough, no runny nose or soar throat. Pt was given lasix and NTG drip in ER, his symptoms partially improved after treatment. Past Med Surg Social Fam HX - Past Medical History Medical history: CHF, hypertension Psychiatric history: no psych history - Past Surgical History Surgical History: appendectomy - Social History Smoking Status: Current every day smoker Smokeless Tobacco Status: No Alcohol use: none Drug use: none - Family History Mother Living Status: Hx Family Endocrine Disorder: Yes (DM) Internal Medicine - H&P: Meds Atorvastatin [Lipitor] 40 mg PO HS 05/15/17 [History] Carvedilol [Coreg] 25 mg PO BID 05/15/17 [History] Furosemide [Lasix] 40 mg PO DAILY 05/15/17 [History] Gabapentin [Neurontin] 800 mg PO QID 05/15/17 [History] Isosorbide MONOnitrate [Isosorbide Mononitrate ER] 120 mg PO DAILY 05/15/17 [ History] Potassium Chloride [Klor-Con 10] 10 meq PO DAILY 05/15/17 [History] Rivaroxaban [Xarelto] 20 mg PO DAILY 05/15/17 [History] Insulin Glargine [Lantus] 50 unit SQ HS 08/18/17 [History] Losartan Potassium [Cozaar] 50 mg PO DAILY 08/18/17 [History] Metformin HCl [Glucophage] 1,000 mg PO BID 08/18/17 [History] Oxycodone HCl/Acetaminophen [Percocet 10-325 mg Tablet] 1 each PO QID PRN [History] 3 Allergy/AdvReac Type Severity Reaction Status Date / Time aspirin [ASA] Allergy See Verified 11/08/17 19:13 Comments NSAIDS (Non-Steroidal Allergy See Verified 11/08/17 19:13 Anti-Inflamma Comments acetaminophen [From Tylenol] AdvReac See Verified 11/08/17 19:13 Comments All Systems PM: A 10-system review of systems was performed and is negative for pertinent findings except as documented above in the HPI. - Constitutional Vitals: Temp Pulse Resp BP Pulse Ox 99.2 F 105 20 135/84 94 11/08/17 19:07 11/08/17 23:42 11/09/17 01:15 11/09/17 01:15 11/08/17 23:42 General appearance: Present: mild distress, A&O X 3, answers questions appropriately - Head Head exam: Present: atraumatic, normocephalic - Eye Eye exam: Present: PERRL, conjuntiva pink, sclera anicteric Pupils: Present: PERRL - Neck Neck exam general surgery: Present: supple, trachea midline. Absent: lymphadenopathy - Respiratory Respiratory exam: Present: CTAB, rhonchi (scattered rhonchi b/l). Absent: accessory muscle use, rales, wheezes - Cardiovascular Cardiovascular exam: Present: RRR, +S1, +S2. Absent: diastolic murmur, gallop, rubs, systolic murmur - GI/Abdominal GI/Abdominal exam: Present: normal bowel sounds, soft, no peritoneal signs. Absent: distended, tenderness - Extremities Exam Extremities exam: Present: pedal edema (Mild pedal edema b/l), warm, radial pulses palpable and symmetrical. Absent: calf tenderness, cyanotic - Neurological Exam Neurological exam: Present: CN II-XII intact, oriented X3, no focal deficits. Absent: pronater drift, facial droop, speech deficit - Skin Skin exam: Present: dry, intact Internal Med - H&P Results - Labs CBC & Chem 7: 11/08/17 19:55 11/08/17 19:55 - EKG Data -: EKG Interpreted by Myself EKG shows normal: sinus rhythm Rate: normal, tachycardia
[2017-11-09 04:15] LABS: Basophils % 0.8 %; Eosinophils # 0.1 K/mcL (0.0-0.6); Hematocrit 45.3 % (37.5-50.1); Hemoglobin 15.4 g/dL (12.9-16.9); Immature Granulocytes % 0.2 % (0-4); Lymphocytes # 1.1 K/mcL (0.6-4.6); Lymphocytes % 21.7 %; Mean Corpuscular Hemoglobin 28.9 pg (28.0-33.3); Mean Platelet Volume 10.6 fL (9.4-12.4); Monocytes # 0.7 K/mcL (0.0-1.3); Monocytes % 13.9 %; Neutrophils # 3.1 K/mcL (1.6-8.9); Platelet Count 132 K/mcL (140-400); Red Blood Count 5.33 M/mcL (4.19-5.50); Red Cell Distribution Width 13.9 % (11.5-14.5); Segmented Neutrophils % 62.4 %
[2017-11-09 04:28] LABS: BUN/Creatinine Ratio 23 (6-26); Blood Urea Nitrogen 22 mg/dL (8-23); Calcium 8.8 mg/dL (8.6-10.3); Carbon Dioxide 27 mEq/L (23-29); Chloride 107 mEq/L (98-107); Glucose 159 mg/dL (70-105); Magnesium 1.9 mg/dL (1.6-2.6); Osmolality,Calculated 297 (280-300); Potassium 3.3 mEq/L (3.5-5.1); Sodium 140 mEq/L (136-145); eGFR For African Americans > 60 (> 60); eGFR For Non-African Americans > 60 (> 60)
[2017-11-09] MEDS: Insulin LISPRO 300 UNITS/3 ML VIAL SQ SCH ×4 (11:32→20:36)
[2017-11-09] MEDS: Isosorbide MONOnitrate (24 HR) 60 MG TAB.ER.24H PO SCH (11:35)
[2017-11-09] MEDS: Gabapentin 400 MG CAPSULE PO SCH ×3 (11:36→20:22)
[2017-11-09] MEDS: *HR* Rivaroxaban 10 MG TABLET PO SCH (11:36)
[2017-11-09] MEDS: Furosemide 40 MG/4 ML VIAL IVP SCH ×2 (11:42→20:23)
--- NOTE | 2017-11-09 12:14 | Electrocardiograph Report ---
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
--- NOTE | 2017-11-09 12:16 | Electrocardiograph Report ---
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
--- NOTE | 2017-11-09 18:59 | Internal Med Progress Note ---
Date of Encounter: 11/09/17 Time of Encounter: 18:57 - Assessment and plan (1) Acute exacerbation of CHF (congestive heart failure) Current Visit: No Status: Acute Assessment and plan: Acute pulmonary edema secondary to acute diastolic CHF exacerbation Taking Lasix 40 mg at home Continue Lasix IV 40 mg twice a day Strict I's and O's and daily weight Chest x-ray shows pulmonary edema Qualifiers: Congestive heart failure type: diastolic Qualified Code(s): I50.33 - Acute on chronic diastolic (congestive) heart failure (2) Atrial fibrillation Current Visit: No Status: Chronic Assessment and plan: Continue Coreg and Xarelto Qualifiers: Atrial fibrillation type: paroxysmal Qualified Code(s): I48.0 - Paroxysmal atrial fibrillation (3) Chronic anticoagulation Current Visit: No Status: Chronic (4) Diabetes Current Visit: No Status: Chronic Assessment and plan: Insulin sliding scale, uses 50 units of Lantus at home, continue Levemir 30 units at night Qualifiers: Diabetes mellitus type: type 2 Diabetes mellitus complication status: with hyperglycemia Diabetes mellitus prison insulin use: with prison use Qualified Code(s): E11.65 - Type 2 diabetes mellitus with hyperglycemia; Z79.4 - director long term care (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 of insulin; Z79.4 - halfway (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 of insulin ; Z79.4 - director long term care (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 of insulin; Z79.4 - director long term care (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 of insulin (5) HTN (hypertension) Current Visit: No Status: Chronic Assessment and plan: Stable Qualifiers: Hypertension type: essential hypertension Qualified Code(s): I10 - Essential (primary) hypertension (6) Nicotine dependence Current Visit: No Status: Chronic Assessment and plan: Smoking cessation counseling, nicotine patch ordered Qualifiers: Nicotine product type: cigarettes Substance use status: unspecified nicotine-induced disorder Qualified Code(s): F17.219 - Nicotine dependence, cigarettes, with unspecified nicotine-induced disorders (7) Rotator cuff disorder Current Visit: No Status: Chronic Qualifiers: Laterality: left Qualified Code(s): M67.912 - Unspecified disorder of synovium and tendon, left shoulder (8) Sebaceous cyst Current Visit: Yes Status: Acute Assessment and plan: follow-up as an outpatient for possible draining - Subjective Interval history: Complains of persistent shortness of breath, with a dry cough, feels very congested, denies any chest pain, no abdominal pain, no fevers or dysuria - Constitutional Vitals: Temp Pulse Resp BP Pulse Ox 98.0 F 98 19 114/67 91 11/09/17 17:52 11/09/17 17:52 11/09/17 17:52 11/09/17 17:52 11/09/17 17:52 General appearance: Present: mild distress, A&O X 3, answers questions appropriately - Head Head exam: Present: atraumatic, normocephalic - Eye Eye exam: Present: PERRL, conjuntiva pink, sclera anicteric Pupils: Present: PERRL - Neck Neck exam general surgery: Present: supple, trachea midline. Absent: lymphadenopathy - Respiratory Respiratory exam: Present: CTAB, rales (Diffuse crackles). Absent: accessory muscle use, rhonchi, wheezes - Cardiovascular Cardiovascular exam: Present: RRR, +S1, +S2. Absent: diastolic murmur, gallop, rubs, systolic murmur - GI/Abdominal GI/Abdominal exam: Present: normal bowel sounds, soft, no peritoneal signs. Absent: distended, tenderness - Extremities Exam Extremities exam: Present: warm, radial pulses palpable and symmetrical. Absent : calf tenderness, cyanotic, pedal edema - Neurological Exam Neurological exam: Present: CN II-XII intact, oriented X3, no focal deficits. Absent: pronater drift, facial droop, speech deficit Additional comments: Right upper back sebaceous cysts - Skin Skin exam: Present: dry, intact Internal Medicine: Result - Labs CBC & Chem 7: 11/09/17 03:38 11/09/17 03:38 Labs: Short CBC 11/09/17 Range/Units 03:38 WBC 5.0 (4.3-11.1) K/mcL Hgb 15.4 (12.9-16.9) g/dL Hct 45.3 (37.5-50.1) % Plt Count 132 L (140-400) K/mcL Neutrophils # 3.1 (1.6-8.9) K/mcL BMP 11/09/17 03:38 Sodium 140 Potassium 3.3 L Chloride 107 Carbon Dioxide 27 BUN 22 Creatinine 0.95 Glucose 159 H Calcium 8.8 Consult Discharge Plan - Plan [facility]errals: [facility] [Primary Care Provider] -
[2017-11-09] MEDS: Nicotine 14 MG PATCH.TD24 TD SCH (20:23)
[2017-11-09] MEDS ORDERED: Insulin DETEMIR 100 UNIT/ML X5UNITS SQ SCH (21:00)
[2017-11-09] MEDS ORDERED: NON-FORMULARY MEDICATION 1 EACH EACH (Insulin Glargine [Lantus] 50 UNIT) SQ SCH (21:00)
[2017-11-09] MEDS: Insulin DETEMIR 100 UNIT/ML X5UNITS SQ SCH (21:19)
[2017-11-10] MEDS: *HR* OxyCODONE/APAP 10/325 TABLET PO PRN ×5 (02:46→22:11)
[2017-11-10] MEDS: Insulin LISPRO 300 UNITS/3 ML VIAL SQ SCH ×4 (08:33→22:12)
[2017-11-10] MEDS: Gabapentin 400 MG CAPSULE PO SCH ×4 (08:44→22:11)
[2017-11-10] MEDS: Furosemide 40 MG/4 ML VIAL IVP SCH ×2 (08:45→17:58)
[2017-11-10] MEDS: *HR* Rivaroxaban 10 MG TABLET PO SCH (08:45)
[2017-11-10] MEDS: Isosorbide MONOnitrate (24 HR) 60 MG TAB.ER.24H PO SCH (08:52)
[2017-11-10 09:16] LABS: BUN/Creatinine Ratio 32 (6-26); Blood Urea Nitrogen 32 mg/dL (8-23); Calcium 9.3 mg/dL (8.6-10.3); Carbon Dioxide 34 mEq/L (23-29); Chloride 106 mEq/L (98-107); Glucose 81 mg/dL (70-105); Osmolality,Calculated 300 (280-300); Sodium 142 mEq/L (136-145); eGFR For African Americans > 60 (> 60); eGFR For Non-African Americans > 60 (> 60)
--- NOTE | 2017-11-10 10:01 | Internal Med Progress Note ---
Date of Encounter: 11/10/17 Time of Encounter: 09:58 - Assessment and plan (1) Acute respiratory failure with hypoxia Current Visit: Yes Status: Acute Assessment and plan: Acute hypoxic respiratory failure secondary to Acute pulmonary edema due to acute diastolic CHF exacerbation in combination with acute COPD exacerbation possibly from acute bacterial bronchitis Taking Lasix 40 mg at home Continue Lasix IV 40 mg twice a day Strict I's and O's and daily weight Chest x-ray shows pulmonary edema *Solu-Medrol and Patrick Willoughby's Send respiratory viral panel CT angio of the chest (2) Acute exacerbation of CHF (congestive heart failure) Current Visit: No Status: Acute Qualifiers: Congestive heart failure type: diastolic Qualified Code(s): I50.33 - Acute on chronic diastolic (congestive) heart failure (3) Atrial fibrillation Current Visit: No Status: Chronic Assessment and plan: Continue Coreg and Xarelto Qualifiers: Atrial fibrillation type: paroxysmal Qualified Code(s): I48.0 - Paroxysmal atrial fibrillation (4) Chronic anticoagulation Current Visit: No Status: Chronic (5) Diabetes Current Visit: No Status: Chronic Assessment and plan: Insulin sliding scale, uses 50 units of Lantus at home, continue Levemir 30 units at night Qualifiers: Diabetes mellitus type: type 2 Diabetes mellitus complication status: with hyperglycemia 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: with snf use Qualified Code(s): E11.65 - Type 2 diabetes mellitus with hyperglycemia; Z79.4 - 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 insulin; Z79.4 - prison (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 of insulin ; Z79.4 - 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 insulin; Z79.4 - prison (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 of insulin (6) HTN (hypertension) Current Visit: No Status: Chronic Assessment and plan: Stable Qualifiers: Hypertension type: essential hypertension Qualified Code(s): I10 - Essential (primary) hypertension (7) Nicotine dependence Current Visit: No Status: Chronic Assessment and plan: Smoking cessation counseling, nicotine patch ordered Qualifiers: Nicotine product type: cigarettes Substance use status: unspecified nicotine-induced disorder Qualified Code(s): F17.219 - Nicotine dependence, cigarettes, with unspecified nicotine-induced disorders (8) Rotator cuff disorder Current Visit: No Status: Chronic Qualifiers: Laterality: left Qualified Code(s): M67.912 - Unspecified disorder of synovium and tendon, left shoulder (9) Sebaceous cyst Current Visit: Yes Status: Acute Assessment and plan: follow-up as an outpatient for possible draining - Subjective Interval history: Not able to lay flat Complains of persistent worse shortness of breath, with a dry cough, feels very congested, denies any chest pain, no abdominal pain, no fevers or dysuria - Constitutional Vitals: Temp Pulse Resp BP Pulse Ox 97.9 F 75 17 142/90 94 11/10/17 08:14 11/10/17 08:14 11/10/17 08:14 11/10/17 08:14 11/10/17 08:14 General appearance: Present: mild distress, A&O X 3, answers questions appropriately - Head Head exam: Present: atraumatic, normocephalic - Eye Eye exam: Present: PERRL, conjuntiva pink, sclera anicteric Pupils: Present: PERRL - Neck Neck exam general surgery: Present: supple, trachea midline. Absent: lymphadenopathy - Respiratory Respiratory exam: Present: CTAB, rales, wheezes (Diffuse crackles and wheezing) . Absent: accessory muscle use, rhonchi - Cardiovascular Cardiovascular exam: Present: RRR, +S1, +S2. Absent: diastolic murmur, gallop, rubs, systolic murmur - GI/Abdominal GI/Abdominal exam: Present: normal bowel sounds, soft, no peritoneal signs. Absent: distended, tenderness - Extremities Exam Extremities exam: Present: warm, radial pulses palpable and symmetrical. Absent : calf tenderness, cyanotic, pedal edema - Neurological Exam Neurological exam: Present: CN II-XII intact, oriented X3, no focal deficits. Absent: pronater drift, facial droop, speech deficit - Skin Skin exam: Present: dry, intact Internal Medicine: Result - Labs CBC & Chem 7: 11/09/17 03:38 11/10/17 08:17 Labs: BMP 11/10/17 08:17 Sodium 142 Potassium 4.0 Chloride 106 Carbon Dioxide 34 H BUN 32 H Creatinine 1.00 Glucose 81 Calcium 9.3 Consult Discharge Plan - Plan [facility]: [facility] [Primary Care Provider] -
[2017-11-10] MEDS: Ipratropium/Albuterol Neb 3 ML IH SCH ×3 (11:02→22:19)
[2017-11-10] MEDS: cefTRIAXone 1,000 MG in Water for inj. (sterile) 20 ML 10 ML IVP SCH (11:27)
[2017-11-10] MEDS: MethylPREDNISolone 40 MG/ML VIAL IVP SCH ×2 (11:27→17:58)
[2017-11-10 14:31] LABS: Adenovirus Not Detected (Not Detect); Bordetella Pertussis Not Detected (Not Detect); Chlamydophila pneumoniae Not Detected (Not Detect); Coronavirus 229E Not Detected (Not Detect); Coronavirus HKU1 Not Detected (Not Detect); Coronavirus NL63 Not Detected (Not Detect); Coronavirus OC43 Not Detected (Not Detect); Human Metapneumovirus Not Detected (Not Detect); Human Rhinovirus/Enterovirus Not Detected (Not Detect); Influenza A Subtype 2009 H1 Not Detected (Not Detect); Influenza A Untypeable Not Detected (Not Detect); Influenza B Not Detected (Not Detect); Mycoplasma pneumoniae Not Detected (Not Detect); Parainfluenza Virus 1 Not Detected (Not Detect); Parainfluenza Virus 2 Not Detected (Not Detect); Parainfluenza Virus 3 Not Detected (Not Detect); Parainfluenza Virus 4 Not Detected (Not Detect); Respiratory Syncytial Virus ***DETECTED*** (Not Detect)
[2017-11-10] MEDS: Nicotine 14 MG PATCH.TD24 TD SCH (17:58)
[2017-11-10] MEDS: Insulin DETEMIR 100 UNIT/ML X5UNITS SQ SCH (22:12)
[2017-11-11] MEDS: MethylPREDNISolone 40 MG/ML VIAL IVP SCH ×4 (00:15→23:47)
[2017-11-11] MEDS: *HR* OxyCODONE/APAP 10/325 TABLET PO PRN ×5 (02:15→23:47)
[2017-11-11] MEDS: Ipratropium/Albuterol Neb 3 ML IH SCH ×4 (05:06→22:26)
[2017-11-11 05:50] LABS: Hematocrit 42.4 % (37.5-50.1); Hemoglobin 14.6 g/dL (12.9-16.9); Mean Corpuscular HGB Conc 34.4 g/dL (31.6-35.5); Mean Corpuscular Hemoglobin 29.3 pg (28.0-33.3); Mean Platelet Volume 10.7 fL (9.4-12.4); Platelet Count 134 K/mcL (140-400); Red Blood Count 4.99 M/mcL (4.19-5.50); Red Cell Distribution Width 13.7 % (11.5-14.5)
[2017-11-11 06:02] LABS: BUN/Creatinine Ratio 44 (6-26); Blood Urea Nitrogen 48 mg/dL (8-23); Carbon Dioxide 29 mEq/L (23-29); Chloride 102 mEq/L (98-107); Glucose 292 mg/dL (70-105); Osmolality,Calculated 309 (280-300); Potassium 4.5 mEq/L (3.5-5.1); Sodium 138 mEq/L (136-145); eGFR For African Americans > 60 (> 60); eGFR For Non-African Americans > 60 (> 60)
[2017-11-11] MEDS: Isosorbide MONOnitrate (24 HR) 60 MG TAB.ER.24H PO SCH (08:30)
[2017-11-11] MEDS: *HR* Rivaroxaban 10 MG TABLET PO SCH (08:30)
[2017-11-11] MEDS: Insulin LISPRO 300 UNITS/3 ML VIAL SQ SCH ×4 (08:30→20:25)
[2017-11-11] MEDS: Gabapentin 400 MG CAPSULE PO SCH ×4 (08:30→20:24)
[2017-11-11] MEDS: Furosemide 40 MG/4 ML VIAL IVP SCH ×2 (08:31→16:14)
[2017-11-11] MEDS: cefTRIAXone 1,000 MG in Water for inj. (sterile) 20 ML 10 ML IVP SCH (08:31)
--- NOTE | 2017-11-11 11:15 | Internal Med Progress Note ---
Date of Encounter: 11/11/17 Time of Encounter: 11:13 - Assessment and plan (1) Acute respiratory failure with hypoxia Current Visit: Yes Status: Acute Assessment and plan: Acute hypoxic respiratory failure secondary to Acute pulmonary edema due to acute diastolic CHF exacerbation in combination with acute COPD exacerbation possibly from acute viral bronchitis/bronchiolitis (RVS infection) Taking Lasix 40 mg at home Continue Lasix IV 40 mg twice a day Strict I's and O's and daily weight Chest x-ray shows pulmonary edema *Solu-Medrol and DuoNeb's discontinue Rocephin day [address] angio of the chest showed:1. No evidence of pulmonary embolus. 2. Right lower lobe tree-in-bud nodules, likely bronchiolitis. 3. Left lower lobe atelectasis. 4. Coronary artery disease. 5. Mild right hilar and mediastinal lymph node enlargement. Enlarged lymph nodes may be reactive. Consider CT follow-up in 6 months to ensure resolution/stability. (2) Acute exacerbation of CHF (congestive heart failure) Current Visit: No Status: Acute Assessment and plan: Acute pulmonary edema secondary to acute diastolic CHF exacerbated by RSV Taking Lasix 40 mg at home Continue Lasix IV 40 mg twice a day Strict I's and O's and daily weight Chest x-ray shows pulmonary edema Qualifiers: Congestive heart failure type: diastolic Qualified Code(s): I50.33 - Acute on chronic diastolic (congestive) heart failure (3) Atrial fibrillation Current Visit: No Status: Chronic Assessment and plan: Continue Coreg and Xarelto Qualifiers: Atrial fibrillation type: paroxysmal Qualified Code(s): I48.0 - Paroxysmal atrial fibrillation (4) Chronic anticoagulation Current Visit: No Status: Chronic (5) Diabetes Current Visit: No Status: Chronic Assessment and plan: Insulin sliding scale, uses 50 units of Lantus at home, continue Levemir 30 units at night Qualifiers: Diabetes mellitus type: type 2 Diabetes mellitus complication status: with hyperglycemia Diabetes mellitus long term acute care registered nurse insulin use: with senior living use Qualified Code(s): E11.65 - Type 2 diabetes mellitus with hyperglycemia; Z79.4 - [facility] (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 of insulin; 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 ; Z79.4 - [facility] (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 of insulin; 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 (6) HTN (hypertension) Current Visit: No Status: Chronic Assessment and plan: Stable Qualifiers: Hypertension type: essential hypertension Qualified Code(s): I10 - Essential (primary) hypertension (7) Nicotine dependence Current Visit: No Status: Chronic Assessment and plan: Smoking cessation counseling, nicotine patch ordered Qualifiers: Nicotine product type: cigarettes Substance use status: unspecified nicotine-induced disorder Qualified Code(s): F17.219 - Nicotine dependence, cigarettes, with unspecified nicotine-induced disorders (8) Rotator cuff disorder Current Visit: No Status: Chronic Qualifiers: Laterality: left Qualified Code(s): M67.912 - Unspecified disorder of synovium and tendon, left shoulder (9) Sebaceous cyst Current Visit: Yes Status: Acute Assessment and plan: follow-up as an outpatient for possible draining - Subjective Interval history: Not able to lay flat still. Complains of less shortness of breath, with a dry cough, very congested, denies any chest pain, no abdominal pain, no fevers or dysuria - Constitutional Vitals: Temp Pulse Resp BP Pulse Ox 97.7 F 66 17 150/85 98 11/11/17 08:31 11/11/17 08:31 11/11/17 11:10 11/11/17 08:31 11/11/17 11:10 General appearance: Present: mild distress, A&O X 3, answers questions appropriately Exam: Head Head exam: Present: atraumatic, normocephalic - Eye Eye exam: Present: PERRL, conjuntiva pink, sclera anicteric Pupils: Present: PERRL - Neck Neck exam general surgery: Present: supple, trachea midline. Absent: lymphadenopathy - Respiratory Respiratory exam: Present: CTAB, rales, wheezes (Diffuse crackles and wheezing) . Absent: accessory muscle use, rhonchi - Cardiovascular Cardiovascular exam: Present: RRR, +S1, +S2. Absent: diastolic murmur, gallop, rubs, systolic murmur - GI/Abdominal GI/Abdominal exam: Present: normal bowel sounds, soft, no peritoneal signs. Absent: distended, tenderness - Extremities Exam Extremities exam: Present: warm, radial pulses palpable and symmetrical. Absent : calf tenderness, cyanotic, pedal edema - Neurological Exam Neurological exam: Present: CN II-XII intact, oriented X3, no focal deficits. Absent: pronater drift, facial droop, speech deficit - Skin Skin exam: Present: dry, intact Internal Medicine: Result - Labs CBC & Chem 7: 11/11/17 05:39 11/11/17 05:39 Labs: Short CBC 11/11/17 Range/Units 05:39 WBC 4.3 (4.3-11.1) K/mcL Hgb 14.6 (12.9-16.9) g/dL Hct 42.4 (37.5-50.1) % Plt Count 134 L (140-400) K/mcL BMP 11/11/17 05:39 Sodium 138 Potassium 4.5 Chloride 102 Carbon Dioxide 29 BUN 48 H Creatinine 1.08 Glucose 292 H Calcium 9.0 - Impressions Impressions Chest CTA 11/10/17 09:56 IMPRESSION: 1. No evidence of pulmonary embolus. 2. Right lower lobe tree-in-bud nodules, likely bronchiolitis. 3. Left lower lobe atelectasis. 4. Coronary artery disease. 5. Mild right hilar and mediastinal lymph node enlargement. Enlarged lymph nodes may be reactive. Consider CT follow-up in 6 months to ensure resolution/stability. D/ / 11/10/2017 11:29:04 Sonny Maurice MD / carlos Interpreting Provider: Sonny Maurice MD Consult Discharge Plan - Plan [facility]errals: [facility] [Primary Care Provider] -
[2017-11-11] MEDS: *HR* HYDROmorphone (PF) 1 MG/ML SYRINGE IVP PRN ×4 (12:12→22:40)
[2017-11-11] MEDS: Nicotine 14 MG PATCH.TD24 TD SCH (16:23)
[2017-11-11] MEDS: Insulin DETEMIR 100 UNIT/ML X5UNITS SQ SCH (20:24)
[2017-11-12] MEDS: *HR* HYDROmorphone (PF) 1 MG/ML SYRINGE IVP PRN ×3 (01:57→09:39)
[2017-11-12] MEDS: Ipratropium/Albuterol Neb 3 ML IH SCH ×2 (04:12→09:47)
[2017-11-12] MEDS: Insulin LISPRO 300 UNITS/3 ML VIAL SQ SCH ×2 (08:04→11:59)
[2017-11-12] MEDS: *HR* Rivaroxaban 10 MG TABLET PO SCH (08:05)
[2017-11-12] MEDS: Gabapentin 400 MG CAPSULE PO SCH ×2 (08:05→12:00)
[2017-11-12] MEDS: *HR* OxyCODONE/APAP 10/325 TABLET PO PRN ×2 (08:05→12:00)
[2017-11-12] MEDS: Isosorbide MONOnitrate (24 HR) 60 MG TAB.ER.24H PO SCH (08:06)
[2017-11-12] MEDS: Furosemide 40 MG/4 ML VIAL IVP SCH (08:06)
[2017-11-12] MEDS: MethylPREDNISolone 40 MG/ML VIAL IVP SCH (08:06)
--- NOTE | 2017-11-12 09:24 | Discharge Summary ---
Date of Encounter: 11/12/17 Time of Encounter: 09:18 - Discharge Diagnosis (1) Acute respiratory failure with hypoxia Priority: Primary Status: Acute Comments: Acute hypoxic respiratory failure secondary to Acute pulmonary edema due to acute diastolic CHF exacerbation in combination with acute COPD exacerbation possibly from acute viral bronchitis/bronchiolitis (RSV infection) (2) RSV (acute bronchiolitis due to respiratory syncytial virus) Priority: Primary Status: Acute (3) Acute exacerbation of CHF (congestive heart failure) Priority: Primary Status: Acute Qualifiers: Congestive heart failure type: diastolic Qualified Code(s): I50.33 - Acute on chronic diastolic (congestive) heart failure (4) Atrial fibrillation Priority: Primary Status: Chronic Qualifiers: Atrial fibrillation type: paroxysmal Qualified Code(s): I48.0 - Paroxysmal atrial fibrillation (5) Chronic anticoagulation Priority: Secondary Status: Chronic (6) Diabetes Priority: Secondary Status: Chronic Qualifiers: Diabetes mellitus type: type 2 Diabetes mellitus complication status: with hyperglycemia Diabetes mellitus 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 insulin 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: with card cutter use Qualified Code(s): E11.65 - Type 2 diabetes mellitus with hyperglycemia; Z79.4 - nutrition assistant (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 of insulin; Z79.4 - [facility] (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 of insulin ; Z79.4 - [facility] (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 of insulin; Z79.4 - nutrition assistant (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 of insulin (7) HTN (hypertension) Priority: Secondary Status: Chronic Qualifiers: Hypertension type: essential hypertension Qualified Code(s): I10 - Essential (primary) hypertension (8) Nicotine dependence Priority: Secondary Status: Chronic Qualifiers: Nicotine product type: cigarettes Substance use status: unspecified nicotine-induced disorder Qualified Code(s): F17.219 - Nicotine dependence, cigarettes, with unspecified nicotine-induced disorders (9) Rotator cuff disorder Priority: Secondary Status: Chronic Qualifiers: Laterality: left Qualified Code(s): M67.912 - Unspecified disorder of synovium and tendon, left shoulder (10) Sebaceous cyst Priority: Secondary Status: Acute - Discharge Medications Prescriptions: HYDROmorphone [Dilaudid] 2 mg PO Q4HR #35 tablet predniSONE [PredniSONE] 10 mg PO DAILY 10 Days tablet Home Medications: Atorvastatin [Lipitor] 40 mg PO HS 05/15/17 [History] Carvedilol [Coreg] 25 mg PO BID 05/15/17 [History] Gabapentin [Neurontin] 800 mg PO QID 05/15/17 [History] Isosorbide MONOnitrate [Isosorbide Mononitrate ER] 120 mg PO DAILY 05/15/17 [ History] Potassium Chloride [Klor-Con 10] 10 meq PO DAILY 05/15/17 [History] Rivaroxaban [Xarelto] 20 mg PO DAILY 05/15/17 [History] Insulin Glargine [Lantus] 50 unit SQ HS 08/18/17 [History] Losartan Potassium [Cozaar] 50 mg PO DAILY 08/18/17 [History] Metformin HCl [Glucophage] 1,000 mg PO BID 08/18/17 [History] Furosemide [Lasix] 40 mg PO BID #60 11/12/17 [Rx] HYDROmorphone [Dilaudid] 2 mg PO Q4HR #35 tablet 11/12/17 [Rx] Oxycodone HCl/Acetaminophen [Percocet 10-325 mg Tablet] 1 each PO QID PRN #30 [Rx] predniSONE [PredniSONE] 10 mg PO DAILY 10 Days tablet 11/12/17 [Rx] Allergies/Adverse Reactions: 3 Allergy/AdvReac Type Severity Reaction Status Date / Time aspirin [ASA] Allergy See Verified 11/08/17 19:13 Comments NSAIDS (Non-Steroidal Allergy See Verified 11/08/17 19:13 Anti-Inflamma Comments acetaminophen [From Tylenol] AdvReac See Verified 11/08/17 19:13 Comments Procedures/tests Complete & Pending: Procedures Performed prior 72 hours Category Date Time Status CT angio chest [CT] Stat Cat Scan 11/10/17 09:56 Completed Date of admission: 11/09/17 19:21 [facility] - Patient Status Disposition: Home Health Service Condition: Good Overall status at discharge: patient is progressing back to baseline - Discharge Instructions Follow Up With: [facility] [Primary Care Provider] - Additional Instructions: Follow-up with primary care physician within the next 7 days. Continue oxygen at home at 2 L continuously until follow-up with primary care physician. Continue Lasix 40 mg twice a day for one week and then decrease the dose to once daily. Taper prednisone 20 mg daily for 5 days and then 10 mg for 5 more days and stop. Do not take Percocet and Dilaudid together - Diet and Activity Activity: increase activity as tolerated Diet: diabetic diet Hospital course: Mr. Cohen is a 62 year old male with Hx of Diastolic CHF, PAF on xarelto, DM insulin-dependent, HTN, present to ER for increased SOB and exertional intolerance. Pt said the worsening SOB started 1 day prior to admission, and could not breathe while moving . He could not walk more than 10 feet on flat floor. Could not lay flat for sleep. Pt denied chest pain but c/o chest heaviness. Had a mild cough, no runny nose or soar throat. Pt was given lasix and NTG drip in ER, his symptoms partially improved after treatment. Chest x-ray showed acute pulmonary edema. CT angio of the chest showed:1. No evidence of pulmonary embolus. 2. Right lower lobe tree-in-bud nodules, likely bronchiolitis. 3. Left lower lobe atelectasis. 4. Coronary artery disease. 5. Mild right hilar and mediastinal lymph node enlargement. Enlarged lymph nodes may be reactive. Consider CT follow-up in 6 months to ensure resolution/stability. Respiratory infection panel showed infection with RSV. He was continued on IV steroids, Lasix, Rocephin was discontinued He is feeling much better today and wishes to be discharged, he was given the option to stay an additional day due to inclement weather but prefers to go home. Patient is complaining of severe left shoulder pain is a scheduled to have a surgical procedure in the near future, was advised to minimize the use of Percocet and Dilaudid and not to take it together. The patient will require oxygen at 2 L as he desaturated down to 83% while walking - Time Spent with Patient Total time spent providing and/or coordinating discharge services: Greater than 30 minutes (40 min) - Constitutional Vitals: Temp Pulse Resp BP Pulse Ox 97.4 F L 66 18 175/90 97 11/12/17 07:53 11/12/17 07:53 11/12/17 07:53 11/12/17 07:53 11/12/17 07:53 General appearance: Present: mild distress, A&O X 3, answers questions appropriately Exam: Head Head exam: Present: atraumatic, normocephalic - Eye Eye exam: Present: PERRL, conjuntiva pink, sclera anicteric Pupils: Present: PERRL - Neck Neck exam general surgery: Present: supple, trachea midline. Absent: lymphadenopathy - Respiratory Respiratory exam: Present: CTAB, rales, wheezes (minimal Diffuse crackles improving, no wheezing). Absent: accessory muscle use, rhonchi - Cardiovascular Cardiovascular exam: Present: RRR, +S1, +S2. Absent: diastolic murmur, gallop, rubs, systolic murmur - GI/Abdominal GI/Abdominal exam: Present: normal bowel sounds, soft, no peritoneal signs. Absent: distended, tenderness - Extremities Exam Extremities exam: Present: warm, radial pulses palpable and symmetrical. Absent : calf tenderness, cyanotic, pedal edema - Neurological Exam Neurological exam: Present: CN II-XII intact, oriented X3, no focal deficits. Absent: pronater drift, facial droop, speech deficit - Skin Skin exam: Present: dry, intact
--- NOTE | 2017-11-12 09:33 | Physician Discharge Referral ---
Home Health/Hosp Referral Info Transfer to: Home Health Provider in Charge Post Discharge: PCP - Diagnosis (1) Acute respiratory failure with hypoxia Status: Acute (2) RSV (acute bronchiolitis due to respiratory syncytial virus) Status: Acute (3) Acute exacerbation of CHF (congestive heart failure) Status: Acute (4) Atrial fibrillation Status: Chronic (5) Chronic anticoagulation Status: Chronic (6) Diabetes Status: Chronic (7) HTN (hypertension) Status: Chronic (8) Nicotine dependence Status: Chronic (9) Rotator cuff disorder Status: Chronic (10) Sebaceous cyst Status: Acute - Respiratory Orders Smoking Cessation: Smoking cessation has been advised. For more information, call the [place] Tobacco Quit Line at 0-402-HHDZ-NOW. - Diet/Nutrition Diet/Nutrition Orders: No Added Salt (TY) - Services Needed Following services are medically necessary services: Home Health Aide, Physical Therapy Home Care Orders: Follow-up with primary care physician within the next 7 days. Continue oxygen at home at 2 L continuously until follow-up with primary care physician. Continue Lasix 40 mg twice a day for one week and then decrease the dose to once daily. Taper prednisone 20 mg daily for 5 days and then 10 mg for 5 more days and stop. Do not take Percocet and Dilaudid together - Transfer Medications Prescriptions: HYDROmorphone [Dilaudid] 2 mg PO Q4HR #35 tablet predniSONE [PredniSONE] 10 mg PO DAILY 10 Days tablet Home Medications: Atorvastatin [Lipitor] 40 mg PO HS 05/15/17 [History] Carvedilol [Coreg] 25 mg PO BID 05/15/17 [History] Gabapentin [Neurontin] 800 mg PO QID 05/15/17 [History] Isosorbide MONOnitrate [Isosorbide Mononitrate ER] 120 mg PO DAILY 05/15/17 [ History] Potassium Chloride [Klor-Con 10] 10 meq PO DAILY 05/15/17 [History] Rivaroxaban [Xarelto] 20 mg PO DAILY 05/15/17 [History] Insulin Glargine [Lantus] 50 unit SQ HS 08/18/17 [History] Losartan Potassium [Cozaar] 50 mg PO DAILY 08/18/17 [History] Metformin HCl [Glucophage] 1,000 mg PO BID 08/18/17 [History] Furosemide [Lasix] 40 mg PO BID #60 11/12/17 [Rx] HYDROmorphone [Dilaudid] 2 mg PO Q4HR #35 tablet 11/12/17 [Rx] Oxycodone HCl/Acetaminophen [Percocet 10-325 mg Tablet] 1 each PO QID PRN #30 [Rx] predniSONE [PredniSONE] 10 mg PO DAILY 10 Days tablet 11/12/17 [Rx] Allergies/Adverse Reactions: 3 Allergy/AdvReac Type Severity Reaction Status Date / Time aspirin [ASA] Allergy See Verified 11/08/17 19:13 Comments NSAIDS (Non-Steroidal Allergy See Verified 11/08/17 19:13 Anti-Inflamma Comments acetaminophen [From Tylenol] AdvReac See Verified 11/08/17 19:13 Comments Certification: Further, I certify that my clinical findings support that this patient is homebound (i.e. absences from home require considerable and taxing effort and are for medical reasons or adventist services or infrequently or short duration when for other reasons) because: Homebound Reason: Patient requires assistance of a person or device to safely leave home Attestation: My signature below is to certify that this patient is under my care and that I, or nurse practitioner, or a physician's payroll and benefits assistant working with me, has a face-to -face encounter with this patient.
[2017-11-12 11:51] VITALS: BP 117/72
[2017-11-13] MEDS ORDERED: MethylPREDNISolone 40 MG/ML VIAL IVP SCH (09:00)
== END 2017-11-12 14:16 | disposition home health service (06) | DRG 291 ==
LOC: EMEROO 17:55 → 2NENU 17:55 → SUATTDRO 23:48 → 2NENU 11-09 01:15 → 2ANU 11-09 15:59
PROVIDERS: ADMIT Internal Medicine; ATTEND Internal Medicine

== ENCOUNTER 2017-11-28 21:53 | Observation (INO) ==
[2017-11-28] MEDS ORDERED: Ipratropium/Albuterol Neb 3 ML IH ONE (22:34)
[2017-11-28] MEDS ORDERED: methylPREDNISolone 125 MG/2 ML VIAL IVP ONE (22:34)
--- NOTE | 2017-11-28 22:34 | Emergency Department Note ---
Disposition Clinical Impression: Acute exacerbation of chronic obstructive airways disease, HCAP (healthcare- associated pneumonia) Disposition: Admitted As Inpatient Condition: Good [facility]: [facility]Primary Care Provider[facility] - Forms: ED Satisfaction Letter Time of Disposition: 00:37 SOB HPI - General Chief Complaint: ED Shortness of Breath/Dyspnea Stated Complaint: ERNESTO Time Seen by Provider: 11/28/17 22:03 Source: patient Limitations: no limitations Nursing Notes Reviewed: Yes Vital Signs Reviewed: Yes - History of Present Illness 62 year old male presents to the ED with complaints of shortnes of breath, chest pain, and tachycardia and hypoxia. Victor Manuel states that he was msot recently admitted to the hospital for CHF excerbation, pnuemonia and RSV, and hypoxia. He states that he feels simlair now. Patient denies any hemopytsis and during this admission he was sent home on oxygen. Victor Manuel states his exertional dspnea is worse and I can asuculatate wheezing on exam. Patient states that this si similar to how he presented about 10 days ago. Victor Manuel dnies history of DVT/PE. - Related Data Home Medications Medication Instructions Recorded Confirmed Atorvastatin [Lipitor] 40 mg PO HS 05/15/17 11/08/17 Carvedilol [Coreg] 25 mg PO BID 05/15/17 11/08/17 Gabapentin [Neurontin] 800 mg PO QID 05/15/17 11/08/17 Isosorbide MONOnitrate [Isosorbide 120 mg PO DAILY 05/15/17 11/08/17 Mononitrate ER] Potassium Chloride [Klor-Con 10] 10 meq PO DAILY 05/15/17 11/08/17 Rivaroxaban [Xarelto] 20 mg PO DAILY 05/15/17 11/08/17 Insulin Glargine [Lantus] 50 unit SQ HS 08/18/17 11/08/17 Losartan Potassium [Cozaar] 50 mg PO DAILY 08/18/17 11/08/17 Metformin HCl [Glucophage] 1,000 mg PO BID 08/18/17 11/08/17 Previous Rx's Medication Instructions Recorded Furosemide [Lasix] 40 mg PO BID #60 11/12/17 HYDROmorphone [Dilaudid] 2 mg PO Q4HR #35 tablet 11/12/17 Oxycodone HCl/Acetaminophen 1 each PO QID PRN #30 01/13/18 [Percocet 10-325 mg Tablet] predniSONE [PredniSONE] 10 mg PO DAILY 10 Days tablet 11/12/17 Allergies Allergy/AdvReac Type Severity Reaction Status Date / Time aspirin [ASA] Allergy See Verified 11/08/17 19:13 Comments NSAIDS (Non-Steroidal Allergy See Verified 11/08/17 19:13 Anti-Inflamma Comments acetaminophen [From Tylenol] AdvReac See Verified 11/08/17 19:13 Comments Constitutional: Denies: fever, chills, weakness, weight change Eyes: Denies: eye pain, eye discharge, vision change ENT ED: Denies: ear pain, throat pain, dental pain, hearing loss, epistaxis, congestion, dysphagia Cardiovascular: Reports: chest pain, palpitations, dyspnea on exertion. Denies : edema, syncope Respiratory: Reports: cough, dyspnea. Denies: wheezes, hemoptysis, stridor Gastrointestinal: Denies: abdominal pain, nausea, vomiting, diarrhea, constipation, hematemesis, melena, hematochezia Genitourinary: Denies: urgency, dysuria, frequency, hematuria Musculoskeletal: Denies: back pain, neck pain, arthralgia, myalgia Integumentary: Denies: rash, abrasion, lesions Neurological: Denies: headache, weakness, numbness, paresthesias, confusion, abnormal gait, vertigo Psychiatric: Denies: anxiety, depression, suicidal thoughts, homicidal thoughts , auditory hallucinations, visual hallucinations Endocrine: Denies: fatigue Hematological/Lymphatic: Denies: easy bleeding, easy bruising Allergic/Immunologic: Denies: facial swelling, urticaria Past Medical History - Past Medical History Medical history: Reports: CHF, diabetes, hypertension Surgical history: Reports: appendectomy Psychiatric history: Reports: no psych history - Social History Smoking Status: Current every day smoker Smokeless Tobacco Status: No Alcohol use: Reports: none Drug use: Reports: none Physical Exam - General Limitations: no limitations General appearance: alert, in no apparent distress - Head Head exam: atraumatic, normocephalic, normal inspection - Eye Eye exam: Present: normal appearance, PERRL, EOMI - Expanded Eye Exam Pupils: Bilateral: reactive - ENT ENT exam: normal exam, normal oropharynx, mucous membranes moist - Expanded ENT Exam External ear exam: Present: normal external inspection Mouth exam: Present: normal external inspection Teeth exam: Present: normal inspection Throat exam: Present: normal inspection - Neck Neck exam: Present: normal inspection, full ROM, trachea midline - Chest Chest inspection: Present: normal inspection, symmetric chest wall rise - Respiratory Respiratory exam: Present: normal lung sounds bilaterally, wheezes - Expanded Respiratory Exam Location: wheezes: Left, Lower, Right - Cardiovascular Cardiovascular exam: Present: normal rhythm, tachycardia, normal heart sounds - Abdominal Exam Abdominal exam: Present: soft, Non-Tender. Absent: tenderness, distention, guarding, rebound, rigidity - Extremities Exam Extremities exam: Present: normal inspection, full ROM. Absent: tenderness, pedal edema - Expanded Upper Extremity Exam Shoulder exam: Present: normal inspection, full ROM Arm exam: Present: normal inspection, full ROM Elbow exam: Present: normal inspection, full ROM Forearm/Wrist exam: Present: normal inspection, full ROM Hand exam: Present: normal inspection, full ROM Vascular exam: Normal: capillary refill, radial pulse - Expanded Lower Extremity Exam Hip/Pelvis exam: Present: normal inspection, full ROM Upper leg exam: Present: normal inspection, full ROM Knee exam: Present: normal inspection, full ROM Lower leg exam: Present: normal inspection, full ROM Ankle exam: Present: normal inspection, full ROM Foot/toe exam: Present: normal inspection, full ROM Neurovascular/Tendon exam: Absent: motor deficit, sensory deficit, tendon deficit - Back Exam Back exam: Present: normal inspection, full ROM. Absent: tenderness - Neurological Exam Neurological exam: Present: alert, oriented X3 - Expanded Neurological Exam Patient oriented to: Present: person, place, time Coma Scale Eye Opening: Spontaneous Coma Scale Motor Response: Obeys Commands Coma Scale Verbal Response: Oriented Coma Scale Total: 15 - Psychiatric Psychiatric exam: Present: normal affect, normal mood - Skin Skin exam: Present: warm, dry, intact, normal color Course Course Narrative: we will do cardiopulmonary workup and my concern is for PE vs. HCAP. WE will do CTA chest for rule out. IVf gingerly at this time. - Consultations Consultation #1: discusse case with Dr. Sibley and he accepts to his service. Victor Manuel is agreeable to plan as well. Time: 00:37 Vital Signs Temperature 98.7 F 11/28/17 22:10 Pulse Rate 111 11/28/17 22:10 Respiratory Rate 20 11/28/17 22:10 Blood Pressure 154/95 11/28/17 22:10 O2 Sat by Pulse Oximetry 92 11/28/17 22:10 Temperature 98.7 F 11/28/17 22:10 Pulse Rate 109 11/28/17 23:26 Respiratory Rate 20 11/28/17 23:26 Blood Pressure 125/82 11/28/17 23:26 O2 Sat by Pulse Oximetry 96 11/28/17 23:26 Oxygen Delivery Oxygen Delivery Nasal Cannula Shortness of Breath/Dyspnea - Medical Records Medical records reviewed: Yes I reviewed the patient's medical records. - Lab Data Lab results reviewed: Yes I reviewed the patient's lab results. Result diagrams: 11/28/17 22:41 11/28/17 22:41 Lab Results 11/28/17 11/28/17 11/28/17 Range/Units 22:41 22:41 22:41 WBC 10.0 (4.3-11.1) K/mcL RBC 5.20 (4.19-5.50) M/mcL Hgb 14.9 (12.9-16.9) g/dL Hct 43.3 (37.5-50.1) % MCV 83.3 (83.0-100.0) fL MCH 28.7 (28.0-33.3) pg MCHC 34.4 (31.6-35.5) g/dL RDW 14.1 (11.5-14.5) % Plt Count 144 (140-400) K/mcL MPV 10.5 (9.4-12.4) fL Immature Gran % 0.4 (0-4) % Seg Neutrophils % 80.0 % Lymphocytes % 10.9 % Monocytes % 7.7 % Eosinophils % 0.6 % Basophils % 0.4 % Neutrophils # 8.0 (1.6-8.9) K/mcL Lymphocytes # 1.1 (0.6-4.6) K/mcL Monocytes # 0.8 (0.0-1.3) K/mcL Eosinophils # 0.1 (0.0-0.6) K/mcL Basophils # 0.0 (0.0-0.2) K/mcL PT 13.3 H (9.4-12.1) Seconds INR 1.2 APTT 36.2 H (26.0-36.0) Seconds Sodium (136-145) mEq/L Potassium (3.5-5.1) mEq/L Chloride (98-107) mEq/L Carbon Dioxide (23-29) mEq/L BUN (8-23) mg/dL Creatinine (0.70-1.30) mg/dL Est GFR ( Amer) (> 60) Est GFR (Non-Af Amer) (> 60) BUN/Creatinine Ratio (6-26) Glucose (70-105) mg/dL Calculated Osmolality (280-300) Lactic Acid (0.5-2.2) mmol/L Calcium (8.6-10.3) mg/dL Troponin I (< 0.04) ng/mL B-Natriuretic Peptide 27 (Less than 100) pg/mL 11/28/17 11/28/17 11/28/17 Range/Units 22:41 22:41 23:00 WBC (4.3-11.1) K/mcL RBC (4.19-5.50) M/mcL Hgb (12.9-16.9) g/dL Hct (37.5-50.1) % MCV (83.0-100.0) fL MCH (28.0-33.3) pg MCHC (31.6-35.5) g/dL RDW (11.5-14.5) % Plt Count (140-400) K/mcL MPV (9.4-12.4) fL Immature Gran % (0-4) % Seg Neutrophils % % Lymphocytes % % Monocytes % % Eosinophils % % Basophils % % Neutrophils # (1.6-8.9) K/mcL Lymphocytes # (0.6-4.6) K/mcL Monocytes # (0.0-1.3) K/mcL Eosinophils # (0.0-0.6) K/mcL Basophils # (0.0-0.2) K/mcL PT (9.4-12.1) Seconds INR APTT (26.0-36.0) Seconds Sodium 136 (136-145) mEq/L Potassium 3.8 (3.5-5.1) mEq/L Chloride 102 (98-107) mEq/L Carbon Dioxide 27 (23-29) mEq/L BUN 23 (8-23) mg/dL Creatinine 1.32 H (0.70-1.30) mg/dL Est GFR ( Amer) > 60 (> 60) Est GFR (Non-Af Amer) 55 L (> 60) BUN/Creatinine Ratio 17 (6-26) Glucose 267 H (70-105) mg/dL Calculated Osmolality 295 (280-300) Lactic Acid 1.6 (0.5-2.2) mmol/L Calcium 8.9 (8.6-10.3) mg/dL Troponin I < 0.03 (< 0.04) ng/mL B-Natriuretic Peptide (Less than 100) pg/mL - Radiology Data Radiology results reviewed: Yes I reviewed the patient's radiology results. - EKG Data EKG attestation: Yes I reviewed and interpreted this EKG. EKG results narrative: sinus tachycardia with rate of 108. NO STEMI. normal intervals. no change from11/08/17
[2017-11-28] MEDS ORDERED: 0.9 % Sodium Chloride 500 ML IVC ONE (22:41)
[2017-11-28 22:49] LABS: Basophils % 0.4 %; Eosinophils # 0.1 K/mcL (0.0-0.6); Eosinophils % 0.6 %; Hematocrit 43.3 % (37.5-50.1); Hemoglobin 14.9 g/dL (12.9-16.9); Immature Granulocytes % 0.4 % (0-4); Lymphocytes # 1.1 K/mcL (0.6-4.6); Lymphocytes % 10.9 %; Mean Corpuscular HGB Conc 34.4 g/dL (31.6-35.5); Mean Corpuscular Hemoglobin 28.7 pg (28.0-33.3); Mean Corpuscular Volume 83.3 fL (83.0-100.0); Mean Platelet Volume 10.5 fL (9.4-12.4); Monocytes # 0.8 K/mcL (0.0-1.3); Monocytes % 7.7 %; Platelet Count 144 K/mcL (140-400); Red Cell Distribution Width 14.1 % (11.5-14.5)
[2017-11-28 22:54] LABS: INR 1.2; Prothrombin Time 13.3 Seconds (9.4-12.1)
[2017-11-28 22:57] LABS: Activated Partial Thrombo Time 36.2 Seconds (26.0-36.0)
[2017-11-28 23:08] LABS: BUN/Creatinine Ratio 17 (6-26); Blood Urea Nitrogen 23 mg/dL (8-23); Calcium 8.9 mg/dL (8.6-10.3); Carbon Dioxide 27 mEq/L (23-29); Chloride 102 mEq/L (98-107); Glucose 267 mg/dL (70-105); Osmolality,Calculated 295 (280-300); Potassium 3.8 mEq/L (3.5-5.1); Sodium 136 mEq/L (136-145); eGFR For African Americans > 60 (> 60); eGFR For Non-African Americans 55 (> 60)
[2017-11-29] MEDS ORDERED: Piperacillin/Tazobactam 3.375 GM in Water for inj. (sterile) 20 ML IVP ONE (00:24)
[2017-11-29] MEDS ORDERED: Levofloxacin 750 MG/150 ML 750 MG/150 ML BAG IVPB ONE (00:24)
[2017-11-29] MEDS ORDERED: Vancomycin 1,000 MG in D5% in Water 250 ML IVPB ONE (00:24)
[2017-11-29] MEDS ORDERED: *HR* OxyCODONE/APAP 10/325 TABLET PO ONE (00:53)
[2017-11-29] MEDS ORDERED: Naloxone 0.4 MG/ML INJ IVP PRN (01:58)
[2017-11-29] MEDS ORDERED: Ipratropium/Albuterol Neb 3 ML IH PRN (02:00)
[2017-11-29] MEDS ORDERED: *HR* OxyCODONE/APAP 10/325 TABLET PO PRN (02:01)
--- NOTE | 2017-11-29 02:05 | Internal Med History&Physical ---
Date of Encounter: 11/29/17 Time of Encounter: 01:15 Assessment and Plan (1) Acute exacerbation of chronic obstructive airways disease Current visit: Yes Status: Acute Patient with chronic smoking history but does appear to have underlying COPD with an episode of acute exacerbation of COPD most likely related to recent bout of bronchiolitis. We will treat with steroids, bronchodilators and azithromycin. I do not suspect pneumonia based on his CT scan and chest x-ray findings showing atelectasis and bronchiolitis which is a remnant from his prior hospitalization. No new infiltrates identified. (2) CHF (congestive heart failure) Current visit: Yes Status: Chronic Chronic congestive heart failure. Continue Lasix. Does not appear to be in acute exacerbation. Qualifiers: Congestive heart failure type: diastolic Congestive heart failure chronicity: chronic Qualified Code(s): I50.32 - Chronic diastolic (congestive ) heart failure (3) Diabetes Current visit: Yes Status: Chronic Will place patient on sliding scale insulin and long-acting insulin. Patient reports that his blood sugars tend to go up high when he is receiving steroids. Will monitor blood sugars closely and adjust insulin regimen as needed. Qualifiers: Diabetes mellitus type: type 2 Diabetes mellitus complication status: with hyperglycemia Diabetes mellitus rodent exterminator insulin use: with rodent exterminator use Qualified Code(s): E11.65 - Type 2 diabetes mellitus with hyperglycemia; Z79.4 - nursing home (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 of insulin; Z79.4 - terminal manager (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 of insulin ; Z79.4 - nursing home (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 of insulin; Z79.4 - terminal manager (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 of insulin (4) Chronic respiratory failure with hypoxia Current visit: Yes Status: Chronic Continue O2 supplementation. (5) RSV (acute bronchiolitis due to respiratory syncytial virus) Current visit: Yes Status: Chronic Recent bout of bronchiolitis with RSV. Given patient's recurrence of symptoms after seemingly improving, will repeat respiratory infection panel to rule out viral infections including influenza. (6) DVT prophylaxis Current visit: Yes Status: Acute Continue Xarelto Internal Medicine - H&P: HPI Chief complaint: Shortness of breath Admitted From: Emergency Dept Plans for Post Hospital Care: Home History of present illness: Mr. Cohen is a 62 year old male patient with history of chronic smoking, recently diagnosed bronchiolitis due to RSV, diastolic CHF, diabetes and hypertension presented to the ER with complaints of shortness of breath, chest pain and tachycardia. He had been hospitalized earlier this month and was just discharged from the hospital 2 weeks back. He had been recuperating well until about 2 days back when his symptoms began to recur. He describes increasing shortness of breath along with cough. The cough gets worse when he takes deep breaths or lies flat in his bed. He denies any fever or chills. No significant sputum production but he describes a gurgling sensation in his throat. He has completed treatment for bronchiolitis with steroids. In the ER , he received local dilators with significant improvement in his symptoms. Past Med Surg Social Fam HX - Past Medical History Attestation: Yes The following information was validated with the patient. Source: patient Medical history: CHF, diabetes, hypertension Psychiatric history: no psych history - Past Surgical History Surgical History: appendectomy - Social History Smoking Status: Current every day smoker Smokeless Tobacco Status: No Alcohol use: none Drug use: none - Family History Mother Living Status: Hx Family Endocrine Disorder: Yes (DM) Internal Medicine - H&P: Meds Atorvastatin [Lipitor] 40 mg PO HS 05/15/17 [History] Carvedilol [Coreg] 25 mg PO BID 05/15/17 [History] Gabapentin [Neurontin] 800 mg PO QID 05/15/17 [History] Isosorbide MONOnitrate [Isosorbide Mononitrate ER] 120 mg PO DAILY 05/15/17 [ History] Potassium Chloride [Klor-Con 10] 10 meq PO DAILY 05/15/17 [History] Rivaroxaban [Xarelto] 20 mg PO DAILY 05/15/17 [History] Insulin Glargine [Lantus] 50 unit SQ HS 08/18/17 [History] Losartan Potassium [Cozaar] 50 mg PO DAILY 08/18/17 [History] Metformin HCl [Glucophage] 1,000 mg PO BID 08/18/17 [History] Furosemide [Lasix] 40 mg PO BID #60 11/12/17 [Rx] HYDROmorphone [Dilaudid] 2 mg PO Q4HR #35 tablet 11/12/17 [Rx] Oxycodone HCl/Acetaminophen [Percocet 10-325 mg Tablet] 1 each PO QID PRN #30 [Rx] predniSONE [PredniSONE] 10 mg PO DAILY 10 Days tablet 11/12/17 [Rx] 3 Allergy/AdvReac Type Severity Reaction Status Date / Time aspirin [ASA] Allergy See Verified 11/08/17 19:13 Comments NSAIDS (Non-Steroidal Allergy See Verified 11/08/17 19:13 Anti-Inflamma Comments acetaminophen [From Tylenol] AdvReac See Verified 11/08/17 19:13 Comments All Systems PM: A 10-system review of systems was performed and is negative for pertinent findings except as documented above in the HPI. - Constitutional Constitutional: no chills, no fever(s), no night sweats - EENT Eyes: no change in vision, no discharge, no pain, no photophobia Nose, mouth and throat: no dysphagia, no nasal discharge, no neck pain, no sore throat - Cardiovascular Cardiovascular ROS IM: no chest pain, no diaphoresis, no dyspnea, no lightheadedness, no palpitations, no syncope - Respiratory Respiratory: cough, dyspnea, wheezing, no excessive phlegm production - Gastrointestinal Gastrointestinal: no abdominal pain, no diarrhea, no hematemesis, no hematochezia, no melena, no nausea, no vomiting - Musculoskeletal Musculoskeletal ROS IM: no numbness, no tingling - Integumentary Integumentary IM: no rash, no unusual bruising - Neurological Neurological ROS: no confusion, no convulsions, no focal weakness, no numbness, no tingling, no tremor(s) - Hematologic/Lymphatic Hematologic/Lymphatic: no easy bruising - Constitutional Vitals: Temp Pulse Resp BP Pulse Ox 98.7 F 100 18 138/83 94 11/28/17 22:10 11/29/17 00:52 11/29/17 01:29 11/29/17 01:29 11/29/17 00:52 General appearance: Present: cooperative, mild distress, A&O X 3 - Neck Neck exam general surgery: Present: supple, trachea midline. Absent: lymphadenopathy - Respiratory Respiratory exam: Present: prolonged expiratory phase, wheezes. Absent: accessory muscle use, rales, rhonchi - Cardiovascular Cardiovascular exam: Present: RRR, +S1, +S2. Absent: diastolic murmur, gallop, rubs, systolic murmur - GI/Abdominal GI/Abdominal exam: Present: normal bowel sounds, soft, no peritoneal signs. Absent: distended, tenderness - Extremities Exam Extremities exam: Present: warm, radial pulses palpable and symmetrical. Absent : calf tenderness, cyanotic, pedal edema - Neurological Exam Neurological exam: Present: CN II-XII intact, oriented X3, no focal deficits. Absent: facial droop, speech deficit - Skin Skin exam: Present: dry, intact Internal Med - H&P Results - Labs CBC & Chem 7: 11/28/17 22:41 11/28/17 22:41 - Impressions Impressions Chest X-Ray 11/28/17 22:06 IMPRESSION: Linear density in the left lower lobe suggestive of scarring or partial atelectasis. Findings suggestive of small left pleural effusion. Cardiomegaly. D/ / 11/28/2017 23:20:22 Reilly Chávez MD / Pat Whitley Interpreting Provider: Reilly Chávez MD Chest CTA 11/28/17 22:30 IMPRESSION: Stable appearance of the chest. No PE identified. D/ / Bryon Barreto MD / Bryon Barrteo MD Interpreting Provider: Bryon Barreto MD
[2017-11-29] MEDS ORDERED: Dextrose Gel 15 GM/37.5 ML TUBE PO PRN ×2 (02:13)
[2017-11-29] MEDS ORDERED: D5% in Water 1,000 ML IVC PRN (02:13)
[2017-11-29] MEDS ORDERED: *HR* Dextrose 50 % in Water (Syg) 50 ML SYRINGE IVP PRN (02:13)
[2017-11-29 03:50] LABS: Basophils % 0.3 %; Eosinophils % 0.1 %; Hematocrit 41.8 % (37.5-50.1); Hemoglobin 14.4 g/dL (12.9-16.9); Immature Granulocytes % 0.4 % (0-4); Lymphocytes # 0.4 K/mcL (0.6-4.6); Lymphocytes % 5.7 %; Mean Corpuscular HGB Conc 34.4 g/dL (31.6-35.5); Mean Corpuscular Hemoglobin 28.8 pg (28.0-33.3); Mean Corpuscular Volume 83.6 fL (83.0-100.0); Mean Platelet Volume 10.6 fL (9.4-12.4); Monocytes # 0.1 K/mcL (0.0-1.3); Monocytes % 1.8 %; Neutrophils # 6.6 K/mcL (1.6-8.9); Platelet Count 124 K/mcL (140-400); Red Cell Distribution Width 14.2 % (11.5-14.5); Segmented Neutrophils % 91.7 %
[2017-11-29] MEDS: traMADol 50 MG TABLET PO PRN ×2 (03:54→17:40)
[2017-11-29 04:08] LABS: BUN/Creatinine Ratio 25 (6-26); Blood Urea Nitrogen 25 mg/dL (8-23); Calcium 8.7 mg/dL (8.6-10.3); Carbon Dioxide 25 mEq/L (23-29); Chloride 105 mEq/L (98-107); Glucose 270 mg/dL (70-105); Osmolality,Calculated 298 (280-300); Potassium 4.1 mEq/L (3.5-5.1); Sodium 137 mEq/L (136-145); eGFR For African Americans > 60 (> 60); eGFR For Non-African Americans > 60 (> 60)
[2017-11-29] MEDS: Ipratropium/Albuterol Neb 3 ML IH SCH ×6 (04:32→23:33)
[2017-11-29] MEDS: Insulin LISPRO 300 UNITS/3 ML VIAL SQ SCH ×7 (09:56→20:40)
--- NOTE | 2017-11-29 09:56 | Event Note ---
Date of Encounter: 11/29/17 Time of Encounter: 09:50 The patient presented earlier this am with increasing SOB. He was recently hospitalized earlier this month and finished tx for bronchiolitis with steroids. He does have hx of COPD and states he is on 2 L NC at home which we will continue. The patient has been examined and lab/diagnostic work has been reviewed. I agree with previous H/P assessment and plan. The patient does complain of chronic shoulder pain which I will continue home percocet as well as add lidocaine patch. Presently he is hemodynamically stable at this time
[2017-11-29] MEDS: *HR* Rivaroxaban 10 MG TABLET PO SCH (09:57)
[2017-11-29] MEDS: predniSONE 20 MG TABLET PO SCH (09:57)
[2017-11-29] MEDS: Azithromycin 250 MG TABLET PO SCH (09:59)
[2017-11-29] MEDS: *HR* OxyCODONE/APAP 10/325 TABLET PO PRN ×2 (12:50→20:38)
--- NOTE | 2017-11-29 19:46 | Electrocardiograph Report ---
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
[2017-11-29] MEDS: Insulin DETEMIR 100 UNIT/ML X5UNITS SQ SCH (20:42)
[2017-11-30] MEDS: *HR* OxyCODONE/APAP 10/325 TABLET PO PRN ×4 (00:32→18:09)
[2017-11-30] MEDS ORDERED: Furosemide 20 MG/2 ML VIAL IVP ONE (01:12)
[2017-11-30 02:41] LABS: Adenovirus Not Detected (Not Detect); Coronavirus 229E Not Detected (Not Detect); Coronavirus HKU1 Not Detected (Not Detect); Coronavirus NL63 Not Detected (Not Detect); Coronavirus OC43 Not Detected (Not Detect); Human Metapneumovirus Not Detected (Not Detect); Human Rhinovirus/Enterovirus Not Detected (Not Detect); Influenza A Subtype 2009 H1 Not Detected (Not Detect); Influenza A Untypeable Not Detected (Not Detect); Influenza B Not Detected (Not Detect); Parainfluenza Virus 1 Not Detected (Not Detect); Parainfluenza Virus 2 Not Detected (Not Detect); Parainfluenza Virus 3 Not Detected (Not Detect); Parainfluenza Virus 4 Not Detected (Not Detect)
[2017-11-30 02:43] LABS: Bordetella Pertussis Not Detected (Not Detect); Chlamydophila pneumoniae Not Detected (Not Detect); Mycoplasma pneumoniae Not Detected (Not Detect); Respiratory Syncytial Virus ***DETECTED*** (Not Detect)
[2017-11-30] MEDS: traMADol 50 MG TABLET PO PRN (03:38)
[2017-11-30] MEDS: Ipratropium/Albuterol Neb 3 ML IH SCH ×6 (03:55→23:30)
[2017-11-30] MEDS ORDERED: Furosemide Oral Soln 40 MG/4 ML UDC PO SCH (09:00)
[2017-11-30] MEDS: Insulin LISPRO 300 UNITS/3 ML VIAL SQ SCH ×7 (09:04→20:32)
[2017-11-30] MEDS: predniSONE 20 MG TABLET PO SCH (09:05)
[2017-11-30] MEDS: *HR* Rivaroxaban 10 MG TABLET PO SCH (09:05)
[2017-11-30] MEDS: Gabapentin 400 MG CAPSULE PO SCH ×4 (09:05→20:31)
[2017-11-30] MEDS: Isosorbide MONOnitrate (24 HR) 60 MG TAB.ER.24H PO SCH (09:06)
[2017-11-30] MEDS: Azithromycin 250 MG TABLET PO SCH (09:06)
--- NOTE | 2017-11-30 14:43 | Internal Med Progress Note ---
Date of Encounter: 11/30/17 Time of Encounter: 14:10 - Assessment and plan (1) Acute exacerbation of chronic obstructive airways disease Current Visit: Yes Status: Acute Assessment and plan: continue systemic steroids and bronchodilator support O2 supplementation monitor O2 sat, goal O2 sat: 88-92% continue empiric abx RSV positive will continue to closely monitor (2) Chronic respiratory failure with hypoxia Current Visit: Yes Status: Chronic Assessment and plan: as listed above (3) Atrial fibrillation Current Visit: No Status: Chronic Assessment and plan: Rate controlled with BB Anticoagulated with Xarelto Qualifiers: Atrial fibrillation type: paroxysmal Qualified Code(s): I48.0 - Paroxysmal atrial fibrillation (4) CHF (congestive heart failure) Current Visit: Yes Status: Chronic Assessment and plan: not in acute exacerbation continue home medications Qualifiers: Congestive heart failure type: diastolic Congestive heart failure chronicity: chronic Qualified Code(s): I50.32 - Chronic diastolic (congestive ) heart failure (5) Diabetes Current Visit: Yes Status: Chronic Assessment and plan: Sliding scale insulin algorithm monitor FS and BG ADA diet Qualifiers: Diabetes mellitus type: type 2 Diabetes mellitus complication status: with hyperglycemia Diabetes mellitus custodial insulin use: with vermin exterminator use Qualified Code(s): E11.65 - Type 2 diabetes mellitus with hyperglycemia; Z79.4 - skilled nursing (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 of insulin; Z79.4 - skilled nursing (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 of insulin ; Z79.4 - skilled nursing (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 of insulin; Z79.4 - vermin exterminator (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 of insulin (6) DVT prophylaxis Current Visit: Yes Status: Acute Assessment and plan: on Xarelto (7) RSV (acute bronchiolitis due to respiratory syncytial virus) Current Visit: Yes Status: Acute Assessment and plan: repeat viral serologies positive for RSV will continue management as listed above (8) Tobacco abuse Current Visit: No Status: Chronic Assessment and plan: smoking cessation counseling provided pt refused nicotine supplementation therapy (9) Obesity (BMI 30-39.9) Current Visit: Yes Status: Chronic - Subjective Interval history: Patient seen and examined with family present at bedside. Pt positive for RSV, clinically improving with systemic steroids and abx. - Constitutional Vitals: Temp Pulse Resp BP Pulse Ox 97.7 F 69 17 115/65 95 11/30/17 10:47 11/30/17 10:47 11/30/17 11:10 11/30/17 10:47 11/30/17 11:10 General appearance: Present: cooperative, A&O X 3, no acute distress, obese - Head Head exam: Present: atraumatic, normocephalic - Eye Eye exam: Present: conjuntiva pink, sclera anicteric - Respiratory Respiratory exam: Present: decreased breath sounds. Absent: wheezes - Cardiovascular Cardiovascular exam: Present: RRR, +S1, +S2. Absent: diastolic murmur, gallop, rubs, systolic murmur - GI/Abdominal GI/Abdominal exam: Present: normal bowel sounds, soft, no peritoneal signs. Absent: distended, tenderness - Extremities Exam Extremities exam: Present: warm, radial pulses palpable and symmetrical. Absent : calf tenderness, pedal edema - Neurological Exam Neurological exam: Present: alert, oriented X3 - Psychiatric Psychiatric exam: Present: normal affect, normal mood Internal Medicine: Result - Labs CBC & Chem 7: 11/29/17 03:27 11/29/17 03:27 - ABG Interpretation ABG results: PT/INR, D-dimer PT 13.3 Seconds (9.4-12.1) H 11/28/17 22:41 Consult Discharge Plan - Plan [facility]errals: [facility] [Primary Care Provider] -
[2017-11-30] MEDS: Insulin DETEMIR 100 UNIT/ML X5UNITS SQ SCH (20:32)
[2017-12-01] MEDS: Ipratropium/Albuterol Neb 3 ML IH SCH ×3 (03:48→11:41)
[2017-12-01] MEDS: *HR* OxyCODONE/APAP 10/325 TABLET PO PRN ×2 (04:16→10:35)
[2017-12-01 05:09] LABS: Basophils % 0.3 %; Eosinophils # 0.1 K/mcL (0.0-0.6); Eosinophils % 0.7 %; Hematocrit 40.6 % (37.5-50.1); Hemoglobin 13.4 g/dL (12.9-16.9); Immature Granulocytes % 0.4 % (0-4); Lymphocytes # 1.4 K/mcL (0.6-4.6); Mean Corpuscular Hemoglobin 28.5 pg (28.0-33.3); Mean Corpuscular Volume 86.4 fL (83.0-100.0); Mean Platelet Volume 10.6 fL (9.4-12.4); Monocytes # 0.5 K/mcL (0.0-1.3); Monocytes % 6.9 %; Neutrophils # 4.7 K/mcL (1.6-8.9); Platelet Count 141 K/mcL (140-400); Red Cell Distribution Width 14.2 % (11.5-14.5); Segmented Neutrophils % 70.7 %
[2017-12-01 06:01] LABS: BUN/Creatinine Ratio 44 (6-26); Blood Urea Nitrogen 35 mg/dL (8-23); Carbon Dioxide 22 mEq/L (23-29); Chloride 106 mEq/L (98-107); Glucose 228 mg/dL (70-105); Magnesium 2.1 mg/dL (1.6-2.6); Osmolality,Calculated 301 (280-300); Phosphorous 3.1 mg/dL (2.7-4.5); Potassium 3.9 mEq/L (3.5-5.1); Sodium 138 mEq/L (136-145); eGFR For African Americans > 60 (> 60); eGFR For Non-African Americans > 60 (> 60)
[2017-12-01 07:06] VITALS: BP 149/86
[2017-12-01] MEDS ORDERED: Furosemide 40 MG TABLET PO SCH (09:00)
[2017-12-01] MEDS: predniSONE 20 MG TABLET PO SCH (09:06)
[2017-12-01] MEDS: *HR* Rivaroxaban 10 MG TABLET PO SCH (09:06)
[2017-12-01] MEDS: Isosorbide MONOnitrate (24 HR) 60 MG TAB.ER.24H PO SCH (09:06)
[2017-12-01] MEDS: Azithromycin 250 MG TABLET PO SCH (09:06)
[2017-12-01] MEDS: Insulin LISPRO 300 UNITS/3 ML VIAL SQ SCH ×2 (09:07→09:08)
[2017-12-01] MEDS: Gabapentin 400 MG CAPSULE PO SCH (09:07)
--- NOTE | 2017-12-01 09:46 | Discharge Summary ---
Date of Encounter: 12/01/17 Time of Encounter: 09:42 - Discharge Diagnosis (1) Acute exacerbation of chronic obstructive airways disease Priority: Primary Status: Acute (2) Chronic respiratory failure with hypoxia Priority: Secondary Status: Chronic (3) Atrial fibrillation Priority: Secondary Status: Chronic Qualifiers: Atrial fibrillation type: paroxysmal Qualified Code(s): I48.0 - Paroxysmal atrial fibrillation (4) CHF (congestive heart failure) Priority: Secondary Status: Chronic Qualifiers: Congestive heart failure type: diastolic Congestive heart failure chronicity: chronic Qualified Code(s): I50.32 - Chronic diastolic (congestive ) heart failure (5) Diabetes Priority: Secondary Status: Chronic Qualifiers: Diabetes mellitus type: type 2 Diabetes mellitus complication status: with hyperglycemia Diabetes mellitus residential insulin use: with residential use Qualified Code(s): E11.65 - Type 2 diabetes mellitus with hyperglycemia; Z79.4 - 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 (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 of insulin; Z79.4 - 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 (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 of insulin ; Z79.4 - senior living (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 of insulin; Z79.4 - senior living (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 of insulin (6) DVT prophylaxis Priority: Secondary Status: Acute (7) RSV (acute bronchiolitis due to respiratory syncytial virus) Priority: Primary Status: Acute (8) Tobacco abuse Priority: Secondary Status: Chronic (9) Obesity (BMI 30-39.9) Priority: Secondary Status: Chronic - Discharge Medications Prescriptions: Albuterol Sulfate [Albuterol Inhaler] 1 puff IH Q4H PRN #1 inhaler PRN Reason: Shortness Of Breath/Wheezing Azithromycin [Zithromax] 500 mg PO DAILY #2 tablet Budesonide/Formoterol 160/4.5 [Symbicort 160/4.5] 2 puff IH BIDR #1 hfa.aer.ad predniSONE [PredniSONE] 40 mg PO DAILY #4 tablet Home Medications: Atorvastatin [Lipitor] 40 mg PO HS 05/15/17 [History] Carvedilol [Coreg] 25 mg PO BID 05/15/17 [History] Gabapentin [Neurontin] 800 mg PO QID 05/15/17 [History] Isosorbide MONOnitrate [Isosorbide Mononitrate ER] 120 mg PO DAILY 05/15/17 [ History] Potassium Chloride [Klor-Con 10] 10 meq PO DAILY 05/15/17 [History] Rivaroxaban [Xarelto] 20 mg PO DAILY 05/15/17 [History] Insulin Glargine [Lantus] 50 unit SQ HS 08/18/17 [History] Losartan Potassium [Cozaar] 50 mg PO DAILY 08/18/17 [History] Metformin HCl [Glucophage] 1,000 mg PO BID 08/18/17 [History] Oxycodone HCl/Acetaminophen [Percocet 10-325 mg Tablet] 1 each PO QID PRN #30 [Rx] Furosemide [Lasix] 40 mg PO QDPC 11/30/17 [History] Albuterol Sulfate [Albuterol Inhaler] 1 puff IH Q4H PRN #1 inhaler 12/01/17 [Rx] Azithromycin [Zithromax] 500 mg PO DAILY #2 tablet 12/01/17 [Rx] Budesonide/Formoterol 160/4.5 [Symbicort 160/4.5] 2 puff IH BIDR #1 hfa.aer.ad 12/01/17 [Rx] predniSONE [PredniSONE] 40 mg PO DAILY #4 tablet 12/01/17 [Rx] Allergies/Adverse Reactions: 3 Allergy/AdvReac Type Severity Reaction Status Date / Time aspirin [ASA] Allergy See Verified 11/08/17 19:13 Comments NSAIDS (Non-Steroidal Allergy See Verified 11/08/17 19:13 Anti-Inflamma Comments Date of admission: 11/29/17 00:52 [facility] care [facility] Discharging clinician: Rose Velasquez Anticipated date of discharge: 12/01/17 - Patient Status Disposition: Home, Self-Care Condition: Good Functional capacity at discharge: independent ambulation Overall status at discharge: patient is back to baseline - Discharge Instructions Follow Up With: [facility] [Primary Care Provider] - 12/07/17 11:15 am (Please follow up as schedule...) - Diet and Activity Activity: increase activity as tolerated, wear oxygen at all times, wear oxygen at night Diet: diabetic diet, low salt diet Hospital course: Mr. Cohen is a 62 year old male with PMH of COPD on LTOT, CHF, DM, HTN, Afib on anticoagulation with Xarelto who was admitted for acute respiratory distress secondary to COPD exacerbation and RSV. Pt was started on systemic steroids, bronchodilator support, and IV abx. He responded appropriately to therapy. At this time he is back to his baseline respiratory status, saturating well on 2L NC. He is medically stable for discharge with outpatient follow up with PCP and pulmonology. Pt demonstrates understanding of his diagnosis and will be discharged to home today. - Time Spent with Patient Total time spent providing and/or coordinating discharge services: Less than 30 minutes - Constitutional Vitals: Temp Pulse Resp BP Pulse Ox 97.4 F L 68 18 149/86 96 12/01/17 06:58 12/01/17 06:58 12/01/17 07:43 12/01/17 06:58 12/01/17 07:43 General appearance: Present: cooperative, A&O X 3, no acute distress, obese - Head Head exam: Present: atraumatic, normocephalic - Eye Eye exam: Present: conjuntiva pink, sclera anicteric - Respiratory Respiratory exam: Present: CTAB. Absent: respiratory distress, wheezes - Cardiovascular Cardiovascular exam: Present: RRR, +S1, +S2. Absent: diastolic murmur, gallop, rubs, systolic murmur - GI/Abdominal GI/Abdominal exam: Present: normal bowel sounds, soft, no peritoneal signs. Absent: distended, tenderness - Extremities Exam Extremities exam: Present: warm, radial pulses palpable and symmetrical. Absent : calf tenderness, cyanotic, pedal edema - Neurological Exam Neurological exam: Present: alert, oriented X3 - Psychiatric Psychiatric exam: Present: normal affect, normal mood
== END 2017-12-01 11:51 | disposition home or self-care (01) ==
LOC: EMEROO 21:53 → 2ANU 21:53 → SUATTDRO 11-29 00:52 → 2ANU 11-29 01:10
PROVIDERS: ADMIT Internal Medicine; ATTEND Internal Medicine

== ENCOUNTER 2019-08-22 14:01 | Inpatient (IN) ==
[2019-08-22] MEDS ORDERED: Naloxone 0.4 MG/ML INJ IVP PRN ×2 (17:03→17:04)
[2019-08-22] MEDS ORDERED: Ondansetron 4 MG/2 ML VIAL IVP PRN (17:04)
[2019-08-22] MEDS ORDERED: Dextrose Gel 15 GM/37.5 ML TUBE PO PRN ×2 (17:38)
[2019-08-22] MEDS ORDERED: *HR* Dextrose 50 % in Water (Syg) 50 ML SYRINGE IVP PRN (17:38)
[2019-08-22] MEDS ORDERED: D5% in Water 1,000 ML IVC PRN (17:38)
[2019-08-22] MEDS ORDERED: 0.9 % Sodium Chloride 1,000 ML ONE (18:21)
[2019-08-22] MEDS: Amiodarone Premix 360 MG/200 ML BAG IVC SCH (18:29)
[2019-08-22] MEDS: Insulin LISPRO 300 UNITS/3 ML VIAL SQ SCH (18:32)
[2019-08-22] MEDS: 0.9 % Sodium Chloride 1,000 ML IVC SCH (18:32)
[2019-08-22] MEDS: Gabapentin 400 MG CAPSULE PO SCH (20:07)
[2019-08-22] MEDS: *HR* OxyCODONE/APAP 10/325 TABLET PO PRN (20:08)
[2019-08-22] MEDS: Insulin DETEMIR 100 UNIT/ML X5UNITS SQ SCH (20:08)
[2019-08-22] MEDS: Budesonide/Formoterol 160/4.5 1 PUFF INH IH SCH (21:32)
[2019-08-23] MEDS: *HR* OxyCODONE/APAP 10/325 TABLET PO PRN ×4 (02:30→19:50)
[2019-08-23 04:51] LABS: Basophils % 0.5 %; Eosinophils # 0.2 K/mcL (0.0-0.6); Eosinophils % 3.1 %; Hemoglobin 12.3 g/dL (12.9-16.9); Immature Granulocytes % 0.5 % (0-4); Lymphocytes # 1.5 K/mcL (0.6-4.6); Lymphocytes % 20.2 %; Mean Corpuscular HGB Conc 31.5 g/dL (31.6-35.5); Mean Corpuscular Hemoglobin 28.2 pg (28.0-33.3); Mean Corpuscular Volume 89.4 fL (83.0-100.0); Mean Platelet Volume 10.8 fL (9.4-12.4); Monocytes # 0.6 K/mcL (0.0-1.3); Monocytes % 7.7 %; Neutrophils # 5.1 K/mcL (1.6-8.9); Platelet Count 174 K/mcL (140-400); Red Blood Count 4.36 M/mcL (4.19-5.50); Red Cell Distribution Width 14.8 % (11.5-14.5); White Blood Count 7.5 K/mcL (4.3-11.1)
[2019-08-23 05:08] LABS: Calcium 8.4 mg/dL (8.6-10.3); Magnesium 1.8 mg/dL (1.6-2.6); Phosphorous 5.6 mg/dL (2.7-4.5); Potassium 4.1 mEq/L (3.5-5.1)
[2019-08-23] MEDS: Amiodarone Premix 360 MG/200 ML BAG IVC SCH (05:56)
[2019-08-23] MEDS: *HR* Rivaroxaban 10 MG TABLET PO SCH (08:19)
[2019-08-23] MEDS: Insulin LISPRO 300 UNITS/3 ML VIAL SQ SCH ×2 (08:20→17:43)
[2019-08-23] MEDS: Isosorbide MONOnitrate (24 HR) 60 MG TAB.ER.24H PO SCH (08:20)
[2019-08-23] MEDS: Gabapentin 400 MG CAPSULE PO SCH ×4 (08:20→19:50)
[2019-08-23] MEDS: predniSONE 20 MG TABLET PO SCH (08:20)
[2019-08-23] MEDS ORDERED: Furosemide 40 MG TABLET PO SCH (09:00)
[2019-08-23] MEDS: 0.9 % Sodium Chloride 1,000 ML IVC SCH ×2 (11:10→14:54)
[2019-08-23] MEDS: Budesonide/Formoterol 160/4.5 1 PUFF INH IH SCH ×2 (11:27→20:08)
[2019-08-23] MEDS ORDERED: Furosemide 40 MG/4 ML VIAL IVP ONE (11:31)
[2019-08-23] MEDS: Insulin DETEMIR 100 UNIT/ML X5UNITS SQ SCH (21:27)
[2019-08-24 01:04] LABS: Basophils % 0.3 %; Eosinophils % 0.3 %; Hematocrit 33.6 % (37.5-50.1); Hemoglobin 11.1 g/dL (12.9-16.9); Immature Granulocytes % 0.8 % (0-4); Lymphocytes # 0.8 K/mcL (0.6-4.6); Lymphocytes % 11.1 %; Mean Corpuscular Hemoglobin 29.1 pg (28.0-33.3); Mean Corpuscular Volume 88.2 fL (83.0-100.0); Mean Platelet Volume 11.2 fL (9.4-12.4); Monocytes # 0.5 K/mcL (0.0-1.3); Monocytes % 6.7 %; Platelet Count 162 K/mcL (140-400); Red Blood Count 3.81 M/mcL (4.19-5.50); Red Cell Distribution Width 14.4 % (11.5-14.5); Segmented Neutrophils % 80.8 %; White Blood Count 7.4 K/mcL (4.3-11.1)
[2019-08-24 01:25] LABS: Calcium 8.4 mg/dL (8.6-10.3); Potassium 4.4 mEq/L (3.5-5.1)
[2019-08-24] MEDS: *HR* OxyCODONE/APAP 10/325 TABLET PO PRN ×4 (05:39→22:20)
[2019-08-24] MEDS: 0.9 % Sodium Chloride 1,000 ML IVC SCH (05:41)
[2019-08-24] MEDS ORDERED: Regadenoson 0.4 MG/5 ML SYRINGE IVP ONE (06:18)
[2019-08-24] MEDS: Budesonide/Formoterol 160/4.5 1 PUFF INH IH SCH ×2 (07:44→22:07)
[2019-08-24] MEDS: Insulin LISPRO 300 UNITS/3 ML VIAL SQ SCH ×4 (10:02→21:08)
[2019-08-24] MEDS: Isosorbide MONOnitrate (24 HR) 60 MG TAB.ER.24H PO SCH (10:03)
[2019-08-24] MEDS: Gabapentin 400 MG CAPSULE PO SCH ×2 (10:03→13:16)
[2019-08-24] MEDS: *HR* Rivaroxaban 10 MG TABLET PO SCH (10:04)
[2019-08-24] MEDS: predniSONE 20 MG TABLET PO SCH (10:04)
[2019-08-24] MEDS: Gabapentin 300 MG CAPSULE PO SCH (21:07)
[2019-08-24] MEDS: Insulin DETEMIR 100 UNIT/ML X5UNITS SQ SCH (21:08)
[2019-08-25] MEDS: *HR* OxyCODONE/APAP 10/325 TABLET PO PRN ×2 (04:24→23:18)
[2019-08-25 06:06] LABS: Basophils % 0.3 %; Eosinophils # 0.1 K/mcL (0.0-0.6); Eosinophils % 0.8 %; Hematocrit 33.6 % (37.5-50.1); Hemoglobin 11.3 g/dL (12.9-16.9); Immature Granulocytes % 0.6 % (0-4); Lymphocytes # 1.1 K/mcL (0.6-4.6); Lymphocytes % 17.3 %; Mean Corpuscular HGB Conc 33.6 g/dL (31.6-35.5); Mean Corpuscular Hemoglobin 28.8 pg (28.0-33.3); Mean Corpuscular Volume 85.5 fL (83.0-100.0); Mean Platelet Volume 11.4 fL (9.4-12.4); Monocytes # 0.5 K/mcL (0.0-1.3); Neutrophils # 4.7 K/mcL (1.6-8.9); Platelet Count 164 K/mcL (140-400); Red Blood Count 3.93 M/mcL (4.19-5.50); Red Cell Distribution Width 14.2 % (11.5-14.5); White Blood Count 6.5 K/mcL (4.3-11.1)
[2019-08-25 06:29] LABS: BUN/Creatinine Ratio 34 (6-26); Blood Urea Nitrogen 46 mg/dL (8-23); Calcium 8.7 mg/dL (8.6-10.3); Carbon Dioxide 28 mEq/L (23-29); Chloride 99 mEq/L (98-107); Glucose 164 mg/dL (70-105); Osmolality,Calculated 300 (280-300); Potassium 4.1 mEq/L (3.5-5.1); Sodium 137 mEq/L (136-145); eGFR For African Americans > 60 (> 60); eGFR For Non-African Americans 52 (> 60)
[2019-08-25] MEDS: Budesonide/Formoterol 160/4.5 1 PUFF INH IH SCH ×2 (07:10→19:47)
[2019-08-25] MEDS: Insulin DETEMIR 100 UNIT/ML X5UNITS SQ SCH (20:21)
[2019-08-25] MEDS: Gabapentin 300 MG CAPSULE PO SCH ×3 (20:22→21:38)
[2019-08-25] MEDS: Insulin LISPRO 300 UNITS/3 ML VIAL SQ SCH ×4 (20:22→21:39)
[2019-08-25] MEDS: Isosorbide MONOnitrate (24 HR) 60 MG TAB.ER.24H PO SCH (21:37)
[2019-08-25] MEDS: *HR* Rivaroxaban 10 MG TABLET PO SCH (21:38)
[2019-08-25] MEDS: predniSONE 20 MG TABLET PO SCH (21:38)
[2019-08-26] MEDS: *HR* OxyCODONE/APAP 10/325 TABLET PO PRN ×4 (05:55→23:58)
[2019-08-26 07:36] LABS: Hemoglobin 11.8 g/dL (12.9-16.9); Mean Corpuscular HGB Conc 33.7 g/dL (31.6-35.5); Mean Corpuscular Hemoglobin 28.9 pg (28.0-33.3); Mean Corpuscular Volume 85.6 fL (83.0-100.0); Platelet Count 199 K/mcL (140-400); Red Blood Count 4.09 M/mcL (4.19-5.50); Red Cell Distribution Width 14.4 % (11.5-14.5); White Blood Count 6.6 K/mcL (4.3-11.1)
[2019-08-26] MEDS: Insulin LISPRO 300 UNITS/3 ML VIAL SQ SCH ×4 (07:53→21:35)
[2019-08-26] MEDS: Isosorbide MONOnitrate (24 HR) 60 MG TAB.ER.24H PO SCH (07:54)
[2019-08-26] MEDS: predniSONE 20 MG TABLET PO SCH (07:54)
[2019-08-26] MEDS: Gabapentin 300 MG CAPSULE PO SCH ×3 (07:54→21:35)
[2019-08-26] MEDS: *HR* Rivaroxaban 10 MG TABLET PO SCH (07:54)
[2019-08-26 07:58] LABS: BUN/Creatinine Ratio 35 (6-26); Blood Urea Nitrogen 39 mg/dL (8-23); Carbon Dioxide 31 mEq/L (23-29); Chloride 101 mEq/L (98-107); Glucose 153 mg/dL (70-105); Osmolality,Calculated 300 (280-300); Potassium 4.2 mEq/L (3.5-5.1); Sodium 139 mEq/L (136-145); eGFR For African Americans > 60 (> 60); eGFR For Non-African Americans > 60 (> 60)
[2019-08-26] MEDS: Budesonide/Formoterol 160/4.5 1 PUFF INH IH SCH ×2 (08:09→20:09)
[2019-08-26] MEDS: Insulin DETEMIR 100 UNIT/ML X5UNITS SQ SCH (21:35)
[2019-08-27] MEDS: *HR* OxyCODONE/APAP 10/325 TABLET PO PRN ×4 (05:42→23:55)
[2019-08-27 06:28] LABS: Hematocrit 38.4 % (37.5-50.1); Hemoglobin 12.1 g/dL (12.9-16.9)
[2019-08-27 06:47] LABS: BUN/Creatinine Ratio 36 (6-26); Blood Urea Nitrogen 39 mg/dL (8-23); Carbon Dioxide 28 mEq/L (23-29); Chloride 103 mEq/L (98-107); Glucose 195 mg/dL (70-105); Osmolality,Calculated 299 (280-300); Potassium 4.2 mEq/L (3.5-5.1); Sodium 137 mEq/L (136-145); eGFR For African Americans > 60 (> 60); eGFR For Non-African Americans > 60 (> 60)
[2019-08-27] MEDS: Budesonide/Formoterol 160/4.5 1 PUFF INH IH SCH ×2 (07:38→20:36)
[2019-08-27] MEDS: Insulin LISPRO 300 UNITS/3 ML VIAL SQ SCH ×4 (08:02→20:35)
[2019-08-27] MEDS: Gabapentin 300 MG CAPSULE PO SCH ×3 (08:07→20:35)
[2019-08-27] MEDS: Isosorbide MONOnitrate (24 HR) 60 MG TAB.ER.24H PO SCH (08:07)
[2019-08-27] MEDS: predniSONE 20 MG TABLET PO SCH (08:07)
[2019-08-27] MEDS ORDERED: 0.9 % Sodium Chloride 2,000 ML ONE (08:53)
[2019-08-27] MEDS ORDERED: *HR* Heparin 10,000 UNIT/10 ML VIAL ONE ×2 (08:53→13:29)
[2019-08-27] MEDS ORDERED: Heparin 1,000 UNITS/500 mL 500 ML ONE ×2 (08:53→13:29)
[2019-08-27] MEDS ORDERED: ISOVUE-370 200 ML INFUS..BTL ONE ×2 (08:53→13:29)
[2019-08-27] MEDS ORDERED: Nitroglycerin 1,000 MCG/10 ML VIAL IV ONE ×2 (08:53→13:30)
[2019-08-27] MEDS ORDERED: Acetaminophen 325 MG TABLET PO PRN (10:51)
[2019-08-27] MEDS ORDERED: *HR* FentaNYL (PF) 100 MCG/2 ML VIAL ONE ×2 (13:29→15:13)
[2019-08-27] MEDS ORDERED: *HR* Midazolam HCl 2 MG/2 ML VIAL ONE (13:29)
[2019-08-27] MEDS ORDERED: 0.9 % Sodium Chloride 1,000 ML ONE (13:30)
[2019-08-27] MEDS ORDERED: Verapamil 5 MG/2 ML VIAL ONE (14:52)
[2019-08-27] MEDS ORDERED: Nitroglycerin 0.4 MG TAB.SUBL SL ONE (17:03)
[2019-08-27] MEDS ORDERED: Isovue-370 500 ML BOTTLE IVP ONE (17:32)
[2019-08-27] MEDS: 0.9 % Sodium Chloride 1,000 ML IVC SCH (18:28)
[2019-08-27] MEDS: Insulin DETEMIR 100 UNIT/ML X5UNITS SQ SCH (20:35)
[2019-08-28] MEDS ORDERED: *HR* OxyCODONE Immed Rel 5 MG TABLET PO ONE (04:19)
[2019-08-28] MEDS: *HR* OxyCODONE/APAP 10/325 TABLET PO PRN (06:22)
[2019-08-28 06:43] VITALS: BP 137/65
[2019-08-28] MEDS: Budesonide/Formoterol 160/4.5 1 PUFF INH IH SCH (07:12)
[2019-08-28 07:54] LABS: BUN/Creatinine Ratio 27 (6-26); Blood Urea Nitrogen 32 mg/dL (8-23); Calcium 8.9 mg/dL (8.6-10.3); Carbon Dioxide 28 mEq/L (23-29); Chloride 99 mEq/L (98-107); Glucose 299 mg/dL (70-105); Osmolality,Calculated 302 (280-300); Potassium 4.1 mEq/L (3.5-5.1); Sodium 137 mEq/L (136-145); eGFR For African Americans > 60 (> 60); eGFR For Non-African Americans > 60 (> 60)
[2019-08-28] MEDS: predniSONE 20 MG TABLET PO SCH (08:12)
[2019-08-28] MEDS: Gabapentin 300 MG CAPSULE PO SCH (08:12)
[2019-08-28] MEDS: Isosorbide MONOnitrate (24 HR) 60 MG TAB.ER.24H PO SCH (08:12)
[2019-08-28] MEDS: *HR* Rivaroxaban 10 MG TABLET PO SCH (08:12)
[2019-08-28] MEDS: Insulin LISPRO 300 UNITS/3 ML VIAL SQ SCH (08:13)
[2019-08-28] MEDS: 0.9 % Sodium Chloride 1,000 ML IVC SCH (08:18)
== END 2019-08-28 10:40 | disposition home or self-care (01) | DRG 280 ==
LOC: 2NNU → SUATTDRO 15:28 → 2ANU 08-24 16:02
PROVIDERS: ADMIT Student in an Organized Health Care Education/Training Program; ATTEND Family Medicine

== ENCOUNTER 2021-10-26 09:09 | Inpatient (IN) ==
[2021-10-26] MEDS ORDERED: Povidone-Iodine 45 ML, Sodium Chloride IRRigation 1,000 ML IR ONE (09:30)
[2021-10-26] MEDS ORDERED: Ondansetron 4 MG/2 ML VIAL IVP PRN (09:55)
[2021-10-26] MEDS ORDERED: Famotidine 20 MG/2 ML VIAL IVP ONE (09:55)
[2021-10-26] MEDS ORDERED: *HR* OxyCODONE Immed Rel 5 MG TABLET PO PRN (09:55)
[2021-10-26] MEDS ORDERED: Pregabalin 75 MG CAPSULE PO ONE (10:00)
[2021-10-26] MEDS ORDERED: ROPIVACAINE/PF/NS 0.25% 1 EACH SYRINGE INTRAART ONE (10:10)
[2021-10-26] MEDS ORDERED: *HR* FentaNYL (PF) 100 MCG/2 ML VIAL ONE (10:10)
[2021-10-26] MEDS ORDERED: Ropivacaine/PF 0.5% 30 ML VIAL ONE (10:10)
[2021-10-26] MEDS ORDERED: *HR* Midazolam HCl 2 MG/2 ML VIAL ONE (10:10)
[2021-10-26] MEDS ORDERED: Ipratropium/Albuterol Neb 3 ML IH ONE (10:15)
[2021-10-26] MEDS ORDERED: Vancomycin 1,000 MG VIAL ONE ×3 (10:23→12:20)
[2021-10-26] MEDS ORDERED: Ringers Solution, Lactated 1,000 ML IVC SCH (10:30)
[2021-10-26] MEDS ORDERED: *HR* Rocuronium Bromide 50 MG/5 ML VIAL ONE (11:22)
[2021-10-26] MEDS ORDERED: Lidocaine HCL 4 ML Topical Solution (Laryng-O-Jet Kit Sterile Pak) TP ONE (11:22)
[2021-10-26] MEDS ORDERED: Lidocaine -MPF 2% 5 ML VIAL ONE (11:22)
[2021-10-26] MEDS ORDERED: *HR* Succinylcholine 200 MG/10 ML VIAL IVP ONE (11:22)
[2021-10-26] MEDS ORDERED: *HR* Propofol 200 MG/20 ML VIAL IVP ONE (11:22)
[2021-10-26] MEDS ORDERED: Ondansetron 4 MG/2 ML VIAL ONE (11:22)
[2021-10-26] MEDS ORDERED: Tranexamic Acid 1,000 MG/10 ML VIAL ONE (12:16)
[2021-10-26] MEDS ORDERED: EPHEDrine 50 MG/ML VIAL ONE (13:38)
[2021-10-26] MEDS ORDERED: Naloxone 0.4 MG/ML INJ IVP PRN (13:40)
[2021-10-26] MEDS ORDERED: Ondansetron ODT 4 MG TAB.RAPDIS SL PRN (13:46)
[2021-10-26] MEDS: *HR* HYDROmorphone PF 0.5 MG/0.5 ML SYRINGE IVP PRN ×2 (14:49→15:12)
[2021-10-26] MEDS ORDERED: *HR* HYDROmorphone (PF) 1 MG/ML SYRINGE IVP PRN (15:59)
[2021-10-26] MEDS: *HR* OxyCODONE Immed Rel 5 MG TABLET PO PRN (16:20)
[2021-10-26] MEDS: Ringers Solution, Lactated 1,000 ML IVC SCH (18:22)
[2021-10-26] MEDS ORDERED: NON-FORMULARY MEDICATION 1 EACH EACH (Ipratropium/Albuterol Sulfate 120 PUFF Inhaler) IH PRN (19:41)
[2021-10-26] MEDS: *HR* OxyCODONE Immed Rel 15 MG TABLET PO SCH (20:45)
[2021-10-26] MEDS: Furosemide 40 MG TABLET PO SCH (20:48)
[2021-10-26] MEDS: Insulin DETEMIR 100 UNIT/ML X5UNITS SUBQ SCH (22:46)
[2021-10-26] MEDS ORDERED: Ipratropium 1 PUFF INHALER IH PRN (23:00)
[2021-10-26] MEDS ORDERED: Ipratropium 1 PUFF INHALER IH SCH (23:00)
[2021-10-27] MEDS: Budesonide/Formoterol 160/4.5 1 PUFF INH IH SCH ×2 (00:22→11:48)
[2021-10-27] MEDS: CeFAZolin 2,000 MG/120 ML BAG IVPB SCH ×4 (00:26→23:45)
[2021-10-27] MEDS: *HR* OxyCODONE Immed Rel 15 MG TABLET PO SCH ×6 (01:00→21:25)
[2021-10-27] MEDS: carvediloL 25 MG TABLET PO SCH ×2 (08:06→16:22)
[2021-10-27] MEDS: Furosemide 40 MG TABLET PO SCH ×2 (08:06→16:23)
[2021-10-27] MEDS: *HR* Metformin 500 MG TABLET PO SCH ×2 (08:07→16:22)
[2021-10-27] MEDS: Isosorbide MONOnitrate (24 HR) 60 MG TAB.ER.24H PO SCH (08:07)
[2021-10-27] MEDS: *HR* Rivaroxaban 10 MG TABLET PO SCH (08:07)
[2021-10-27] MEDS: *HR* Glimepiride 4 MG TABLET PO SCH (08:08)
[2021-10-27] MEDS: Patient Taking Own Medication 1 EACH PO SCH (08:42)
[2021-10-27 13:44] LABS: Basophils % 0.2 %; Eosinophils % 0.2 %; Hematocrit 33.3 % (37.5-50.1); Hemoglobin 11.1 g/dL (12.9-16.9); Immature Granulocytes % 0.7 % (0-4); Lymphocytes # 1.5 K/mcL (0.6-4.6); Lymphocytes % 12.4 %; Mean Corpuscular HGB Conc 33.3 g/dL (31.6-35.5); Mean Corpuscular Hemoglobin 28.8 pg (28.0-33.3); Mean Corpuscular Volume 86.3 fL (83.0-100.0); Mean Platelet Volume 10.2 fL (9.4-12.4); Monocytes # 0.7 K/mcL (0.0-1.3); Monocytes % 5.3 %; Platelet Count 263 K/mcL (140-400); Red Blood Count 3.86 M/mcL (4.19-5.50); Red Cell Distribution Width 14.5 % (11.5-14.5); Segmented Neutrophils % 81.2 %; White Blood Count 12.3 K/mcL (4.3-11.1)
[2021-10-27 14:21] LABS: Calcium 8.6 mg/dL (8.6-10.3)
[2021-10-27] MEDS: *HR* OxyCODONE Immed Rel 5 MG TABLET PO PRN ×2 (16:35→23:44)
[2021-10-27] MEDS: Insulin DETEMIR 100 UNIT/ML X5UNITS SUBQ SCH (21:26)
[2021-10-28] MEDS: Budesonide/Formoterol 160/4.5 1 PUFF INH IH SCH ×3 (02:10→23:54)
[2021-10-28] MEDS: *HR* OxyCODONE Immed Rel 15 MG TABLET PO SCH ×6 (02:15→20:59)
[2021-10-28] MEDS: Ringers Solution, Lactated 1,000 ML IVC SCH (06:03)
[2021-10-28] MEDS: carvediloL 25 MG TABLET PO SCH ×2 (08:35→17:23)
[2021-10-28] MEDS: *HR* Glimepiride 4 MG TABLET PO SCH (08:36)
[2021-10-28] MEDS: *HR* Rivaroxaban 10 MG TABLET PO SCH (08:36)
[2021-10-28] MEDS: Isosorbide MONOnitrate (24 HR) 60 MG TAB.ER.24H PO SCH (08:36)
[2021-10-28] MEDS: Furosemide 40 MG TABLET PO SCH ×2 (08:36→17:20)
[2021-10-28] MEDS: Patient Taking Own Medication 1 EACH PO SCH (08:36)
[2021-10-28] MEDS: *HR* Metformin 500 MG TABLET PO SCH ×2 (08:36→17:22)
[2021-10-28] MEDS: CeFAZolin 2,000 MG/120 ML BAG IVPB SCH (09:46)
[2021-10-28] MEDS: DAPTOmycin 650 MG in 0.9 % Sodium Chloride 100 ML IVPB SCH (10:04)
[2021-10-28] MEDS ORDERED: Gabapentin 300 MG CAPSULE PO SCH (15:00)
[2021-10-28] MEDS: *HR* HYDROmorphone (PF) 1 MG/ML SYRINGE IVP PRN (19:43)
[2021-10-28] MEDS: Pregabalin 50 MG CAPSULE PO SCH (20:58)
[2021-10-28] MEDS: Insulin DETEMIR 100 UNIT/ML X5UNITS SUBQ SCH (21:01)
[2021-10-29] MEDS: *HR* OxyCODONE Immed Rel 15 MG TABLET PO SCH ×6 (00:39→23:06)
[2021-10-29] MEDS: *HR* HYDROmorphone (PF) 1 MG/ML SYRINGE IVP PRN ×3 (02:21→20:37)
[2021-10-29 09:36] LABS: Basophils # 0.1 K/mcL (0.0-0.2); Basophils % 0.6 %; Eosinophils # 0.2 K/mcL (0.0-0.6); Eosinophils % 1.8 %; Hematocrit 32.3 % (37.5-50.1); Hemoglobin 10.9 g/dL (12.9-16.9); Immature Granulocytes % 0.6 % (0-4); Lymphocytes % 23.8 %; Mean Corpuscular HGB Conc 33.7 g/dL (31.6-35.5); Mean Corpuscular Hemoglobin 28.4 pg (28.0-33.3); Mean Corpuscular Volume 84.1 fL (83.0-100.0); Mean Platelet Volume 9.8 fL (9.4-12.4); Monocytes # 0.6 K/mcL (0.0-1.3); Monocytes % 6.8 %; Neutrophils # 5.5 K/mcL (1.6-8.9); Platelet Count 222 K/mcL (140-400); Red Blood Count 3.84 M/mcL (4.19-5.50); Red Cell Distribution Width 14.5 % (11.5-14.5); Segmented Neutrophils % 66.4 %; White Blood Count 8.3 K/mcL (4.3-11.1)
[2021-10-29 09:49] LABS: Calcium 8.8 mg/dL (8.6-10.3); Potassium 3.9 mEq/L (3.5-5.1)
[2021-10-29] MEDS: carvediloL 25 MG TABLET PO SCH ×2 (09:52→17:19)
[2021-10-29] MEDS: *HR* Metformin 500 MG TABLET PO SCH ×2 (09:52→17:19)
[2021-10-29] MEDS: *HR* Glimepiride 4 MG TABLET PO SCH (09:52)
[2021-10-29] MEDS: Furosemide 40 MG TABLET PO SCH ×2 (09:52→17:19)
[2021-10-29] MEDS: Isosorbide MONOnitrate (24 HR) 60 MG TAB.ER.24H PO SCH (09:53)
[2021-10-29] MEDS: Pregabalin 50 MG CAPSULE PO SCH ×3 (09:53→20:36)
[2021-10-29] MEDS: *HR* Rivaroxaban 10 MG TABLET PO SCH (09:53)
[2021-10-29] MEDS: Patient Taking Own Medication 1 EACH PO SCH (09:54)
[2021-10-29] MEDS: DAPTOmycin 650 MG in 0.9 % Sodium Chloride 100 ML IVPB SCH (09:54)
[2021-10-29] MEDS: Budesonide/Formoterol 160/4.5 1 PUFF INH IH SCH (11:41)
[2021-10-29] MEDS: Insulin DETEMIR 100 UNIT/ML X5UNITS SUBQ SCH (23:07)
[2021-10-30] MEDS: *HR* HYDROmorphone (PF) 1 MG/ML SYRINGE IVP PRN ×6 (03:07→19:49)
[2021-10-30] MEDS: *HR* OxyCODONE Immed Rel 15 MG TABLET PO SCH ×6 (04:00→23:04)
[2021-10-30] MEDS: DAPTOmycin 650 MG in 0.9 % Sodium Chloride 100 ML IVPB SCH (06:45)
[2021-10-30] MEDS: carvediloL 25 MG TABLET PO SCH ×2 (09:20→17:04)
[2021-10-30] MEDS: *HR* Metformin 500 MG TABLET PO SCH ×2 (09:20→17:03)
[2021-10-30] MEDS: *HR* Glimepiride 4 MG TABLET PO SCH (09:20)
[2021-10-30] MEDS: Isosorbide MONOnitrate (24 HR) 60 MG TAB.ER.24H PO SCH (09:20)
[2021-10-30] MEDS: Furosemide 40 MG TABLET PO SCH ×2 (09:21→17:03)
[2021-10-30] MEDS: *HR* Rivaroxaban 10 MG TABLET PO SCH (09:21)
[2021-10-30] MEDS: Pregabalin 50 MG CAPSULE PO SCH ×3 (09:21→19:49)
[2021-10-30] MEDS: Patient Taking Own Medication 1 EACH PO SCH (09:26)
[2021-10-30] MEDS: Budesonide/Formoterol 160/4.5 1 PUFF INH IH SCH ×3 (10:35→21:25)
[2021-10-30] MEDS: Insulin DETEMIR 100 UNIT/ML X5UNITS SUBQ SCH (23:04)
[2021-10-31] MEDS: *HR* HYDROmorphone (PF) 1 MG/ML SYRINGE IVP PRN ×5 (00:11→21:05)
[2021-10-31] MEDS: *HR* OxyCODONE Immed Rel 15 MG TABLET PO SCH ×6 (02:21→23:12)
[2021-10-31] MEDS: DAPTOmycin 650 MG in 0.9 % Sodium Chloride 100 ML IVPB SCH (06:18)
[2021-10-31] MEDS: Pregabalin 50 MG CAPSULE PO SCH ×3 (09:48→21:05)
[2021-10-31] MEDS: *HR* Rivaroxaban 10 MG TABLET PO SCH (09:49)
[2021-10-31] MEDS: *HR* Glimepiride 4 MG TABLET PO SCH (09:49)
[2021-10-31] MEDS: Isosorbide MONOnitrate (24 HR) 60 MG TAB.ER.24H PO SCH (09:49)
[2021-10-31] MEDS: Furosemide 40 MG TABLET PO SCH ×2 (09:55→16:46)
[2021-10-31] MEDS: *HR* Metformin 500 MG TABLET PO SCH ×2 (09:55→16:46)
[2021-10-31] MEDS: carvediloL 25 MG TABLET PO SCH ×2 (09:55→16:46)
[2021-10-31] MEDS: Patient Taking Own Medication 1 EACH PO SCH (09:58)
[2021-10-31] MEDS: Budesonide/Formoterol 160/4.5 1 PUFF INH IH SCH ×2 (16:44→23:31)
[2021-10-31] MEDS: Insulin DETEMIR 100 UNIT/ML X5UNITS SUBQ SCH (21:06)
[2021-11-01] MEDS: *HR* HYDROmorphone (PF) 1 MG/ML SYRINGE IVP PRN ×6 (01:25→21:42)
[2021-11-01] MEDS: *HR* OxyCODONE Immed Rel 15 MG TABLET PO SCH ×6 (03:04→23:22)
[2021-11-01] MEDS: *HR* Glimepiride 4 MG TABLET PO SCH (07:42)
[2021-11-01] MEDS: *HR* Rivaroxaban 10 MG TABLET PO SCH (07:43)
[2021-11-01] MEDS: Pregabalin 50 MG CAPSULE PO SCH ×3 (07:43→19:13)
[2021-11-01] MEDS: *HR* Metformin 500 MG TABLET PO SCH ×2 (07:43→16:44)
[2021-11-01] MEDS: carvediloL 25 MG TABLET PO SCH ×2 (07:43→16:44)
[2021-11-01] MEDS: DAPTOmycin 650 MG in 0.9 % Sodium Chloride 100 ML IVPB SCH (07:44)
[2021-11-01] MEDS: Furosemide 40 MG TABLET PO SCH ×2 (07:44→16:45)
[2021-11-01] MEDS: Isosorbide MONOnitrate (24 HR) 60 MG TAB.ER.24H PO SCH (07:44)
[2021-11-01] MEDS: Patient Taking Own Medication 1 EACH PO SCH (07:48)
[2021-11-01] MEDS: Budesonide/Formoterol 160/4.5 1 PUFF INH IH SCH ×2 (10:26→21:31)
[2021-11-01] MEDS: Insulin DETEMIR 100 UNIT/ML X5UNITS SUBQ SCH (19:31)
[2021-11-02] MEDS: *HR* HYDROmorphone (PF) 1 MG/ML SYRINGE IVP PRN ×4 (01:56→17:03)
[2021-11-02 03:00] LABS: Basophils # 0.1 K/mcL (0.0-0.2); Basophils % 0.9 %; Eosinophils # 0.3 K/mcL (0.0-0.6); Eosinophils % 3.3 %; Hematocrit 31.4 % (37.5-50.1); Hemoglobin 10.2 g/dL (12.9-16.9); Immature Granulocytes % 0.6 % (0-4); Lymphocytes # 1.9 K/mcL (0.6-4.6); Lymphocytes % 23.4 %; Mean Corpuscular HGB Conc 32.5 g/dL (31.6-35.5); Mean Corpuscular Hemoglobin 27.9 pg (28.0-33.3); Mean Corpuscular Volume 85.8 fL (83.0-100.0); Mean Platelet Volume 10.1 fL (9.4-12.4); Monocytes # 0.6 K/mcL (0.0-1.3); Monocytes % 6.8 %; Neutrophils # 5.3 K/mcL (1.6-8.9); Platelet Count 240 K/mcL (140-400); Red Blood Count 3.66 M/mcL (4.19-5.50); Red Cell Distribution Width 14.5 % (11.5-14.5); White Blood Count 8.1 K/mcL (4.3-11.1)
[2021-11-02 03:18] LABS: Calcium 8.8 mg/dL (8.6-10.3); Potassium 3.9 mEq/L (3.5-5.1)
[2021-11-02] MEDS: *HR* OxyCODONE Immed Rel 15 MG TABLET PO SCH ×5 (03:34→20:26)
[2021-11-02] MEDS: carvediloL 25 MG TABLET PO SCH ×2 (07:39→17:01)
[2021-11-02] MEDS: *HR* Glimepiride 4 MG TABLET PO SCH (07:39)
[2021-11-02] MEDS: *HR* Metformin 500 MG TABLET PO SCH ×2 (07:39→17:01)
[2021-11-02] MEDS: Isosorbide MONOnitrate (24 HR) 60 MG TAB.ER.24H PO SCH (07:39)
[2021-11-02] MEDS: Furosemide 40 MG TABLET PO SCH ×2 (07:39→17:01)
[2021-11-02] MEDS: Pregabalin 50 MG CAPSULE PO SCH ×3 (07:39→20:26)
[2021-11-02] MEDS: *HR* Rivaroxaban 10 MG TABLET PO SCH (07:40)
[2021-11-02] MEDS: Patient Taking Own Medication 1 EACH PO SCH (07:49)
[2021-11-02] MEDS: Budesonide/Formoterol 160/4.5 1 PUFF INH IH SCH ×2 (08:00→22:04)
[2021-11-02] MEDS: DAPTOmycin 650 MG in 0.9 % Sodium Chloride 100 ML IVPB SCH (09:10)
[2021-11-02] MEDS: Insulin DETEMIR 100 UNIT/ML X5UNITS SUBQ SCH (21:22)
[2021-11-03] MEDS: *HR* OxyCODONE Immed Rel 15 MG TABLET PO SCH ×7 (00:13→23:37)
[2021-11-03] MEDS: *HR* HYDROmorphone (PF) 1 MG/ML SYRINGE IVP PRN ×7 (01:41→22:34)
[2021-11-03] MEDS: Isosorbide MONOnitrate (24 HR) 60 MG TAB.ER.24H PO SCH (08:01)
[2021-11-03] MEDS: carvediloL 25 MG TABLET PO SCH ×2 (08:01→16:49)
[2021-11-03] MEDS: *HR* Metformin 500 MG TABLET PO SCH ×2 (08:02→16:48)
[2021-11-03] MEDS: *HR* Glimepiride 4 MG TABLET PO SCH (08:03)
[2021-11-03] MEDS: Pregabalin 50 MG CAPSULE PO SCH ×3 (08:03→19:20)
[2021-11-03] MEDS: Furosemide 40 MG TABLET PO SCH ×2 (08:03→16:48)
[2021-11-03] MEDS: *HR* Rivaroxaban 10 MG TABLET PO SCH (08:03)
[2021-11-03] MEDS: DAPTOmycin 650 MG in 0.9 % Sodium Chloride 100 ML IVPB SCH (08:04)
[2021-11-03] MEDS: Patient Taking Own Medication 1 EACH PO SCH (09:28)
[2021-11-03] MEDS: Budesonide/Formoterol 160/4.5 1 PUFF INH IH SCH ×2 (13:39→22:14)
[2021-11-03] MEDS: Insulin DETEMIR 100 UNIT/ML X5UNITS SUBQ SCH (19:45)
[2021-11-04] MEDS: *HR* HYDROmorphone (PF) 1 MG/ML SYRINGE IVP PRN ×2 (02:19→10:48)
[2021-11-04] MEDS: *HR* OxyCODONE Immed Rel 15 MG TABLET PO SCH ×4 (03:37→15:48)
[2021-11-04 06:52] VITALS: TEMP 97.8
[2021-11-04] MEDS: Budesonide/Formoterol 160/4.5 1 PUFF INH IH SCH (07:21)
[2021-11-04] MEDS: *HR* Metformin 500 MG TABLET PO SCH (07:41)
[2021-11-04] MEDS: carvediloL 25 MG TABLET PO SCH (07:41)
[2021-11-04] MEDS: Furosemide 40 MG TABLET PO SCH (07:41)
[2021-11-04] MEDS: *HR* Rivaroxaban 10 MG TABLET PO SCH (07:41)
[2021-11-04] MEDS: Isosorbide MONOnitrate (24 HR) 60 MG TAB.ER.24H PO SCH (07:42)
[2021-11-04] MEDS: Pregabalin 50 MG CAPSULE PO SCH ×2 (07:43→15:47)
[2021-11-04] MEDS: *HR* Glimepiride 4 MG TABLET PO SCH (07:43)
[2021-11-04] MEDS: DAPTOmycin 650 MG in 0.9 % Sodium Chloride 100 ML IVPB SCH (07:58)
[2021-11-04 11:22] VITALS: BP 144/70; PULSE 73; O2SAT 96
[2021-11-04] MEDS: Patient Taking Own Medication 1 EACH PO SCH (12:17)
== END 2021-11-04 16:00 | disposition home health service (06) | DRG 507 ==
LOC: 4WAOSI 09:09 → SDCAOSI 09:09 → 4WAOSI 15:56
PROVIDERS: ADMIT Orthopaedic Surgery; ATTEND Orthopaedic Surgery

== ENCOUNTER 2022-01-11 09:39 | Observation (INO) ==
[~2022-01-11 09:39] MED LIST: Vancomycin 2,000 MG/520 ML IV.SOLN IVPB ONE
[2022-01-11] MEDS ORDERED: Ringers Solution, Lactated 1,000 ML IVC SCH ×2 (10:00→13:45)
[2022-01-11] MEDS ORDERED: CeFAZolin Syr 2,000MG/20 ML 2,000 MG/20 ML SYRINGE IVPB ONE (10:42)
[2022-01-11] MEDS ORDERED: Ondansetron 4 MG/2 ML VIAL IVP PRN ×2 (10:49→13:38)
[2022-01-11] MEDS ORDERED: *HR* HYDROmorphone PF 0.5 MG/0.5 ML SYRINGE IVP PRN (10:49)
[2022-01-11] MEDS ORDERED: Famotidine 20 MG/2 ML VIAL IVP ONE (11:21)
[2022-01-11] MEDS ORDERED: Lidocaine HCL 4 ML Topical Solution (Laryng-O-Jet Kit Sterile Pak) TP ONE (11:41)
[2022-01-11] MEDS ORDERED: *HR* OxyCODONE Immed Rel 5 MG TABLET PO ONE ×2 (11:48→18:20)
[2022-01-11] MEDS ORDERED: Albuterol 2.5 MG/3 ML NEBULIZER IH ONE (11:57)
[2022-01-11] MEDS ORDERED: Lidocaine 1% 20 ML MDV ONE (12:24)
[2022-01-11] MEDS ORDERED: ROPIVACAINE/PF/NS 0.25% 1 EACH SYRINGE INTRAART ONE (12:24)
[2022-01-11] MEDS ORDERED: *HR* Midazolam HCl 2 MG/2 ML VIAL ONE (12:26)
[2022-01-11] MEDS ORDERED: *HR* FentaNYL (PF) 100 MCG/2 ML VIAL ONE (12:26)
[2022-01-11] MEDS ORDERED: *HR* Propofol 200 MG/20 ML VIAL IVP ONE (12:27)
[2022-01-11] MEDS ORDERED: Lidocaine -MPF 2% 5 ML VIAL ONE (12:27)
[2022-01-11] MEDS ORDERED: *HR* Rocuronium Bromide 50 MG/5 ML VIAL ONE ×2 (12:27→15:05)
[2022-01-11] MEDS ORDERED: *HR* Succinylcholine 200 MG/10 ML VIAL IVP ONE (12:27)
[2022-01-11] MEDS ORDERED: Ondansetron 4 MG/2 ML VIAL ONE (12:27)
[2022-01-11] MEDS ORDERED: Albumin Human 5% 25.0 GM/500 ML IV.SOLN ONE (12:56)
[2022-01-11] MEDS ORDERED: Vancomycin 1,000 MG VIAL ONE (12:59)
[2022-01-11] MEDS ORDERED: Sennosides 8.6 MG TABLET PO PRN (13:38)
[2022-01-11] MEDS ORDERED: MOM Conc 10 ML UD.LIQ PO PRN (13:38)
[2022-01-11] MEDS ORDERED: Tranexamic Acid 1,000 MG/10 ML VIAL ONE (13:50)
[2022-01-11] MEDS ORDERED: Povidone-Iodine 45 ML, Sodium Chloride IRRigation 1,000 ML IR ONE (14:15)
[2022-01-11] MEDS ORDERED: *HR* Phenylephrine 10 MG/ML VIAL ONE (14:17)
[2022-01-11] MEDS ORDERED: Neostigmine Methylsulfate 3 MG/3 ML SYRINGE ONE (15:42)
[2022-01-11] MEDS ORDERED: *HR* HYDROMORPHONE 2 MG/ML VIAL ONE (16:17)
[2022-01-11] MEDS ORDERED: Albumin Human 5% 12.5 GM/250 ML IV.SOLN ONE (17:15)
[2022-01-11] MEDS ORDERED: Albumin Human 5% 12.5 GM/250 ML IV.SOLN IVC SCH (17:15)
[2022-01-11] MEDS ORDERED: Naloxone 0.4 MG/ML INJ IVP PRN (17:52)
[2022-01-11] MEDS: *HR* FentaNYL (PF) 100 MCG/2 ML VIAL IVP PRN ×2 (18:02→18:08)
[2022-01-11] MEDS ORDERED: Pregabalin 75 MG CAPSULE PO ONE (18:19)
[2022-01-11] MEDS: Morphine PCA 30 MG/ 30 ML 30 ML PCA.VIAL IVC PRN (20:04)
[2022-01-11] MEDS: Budesonide/Formoterol 160/4.5 1 PUFF INH IH SCH (21:29)
[2022-01-11 22:56] LABS: Hematocrit 26.2 % (37.5-50.1); Hemoglobin 8.8 g/dL (12.9-16.9)
[2022-01-11] MEDS: CeFAZolin 2 GM/120 ML BAG IVPB SCH (23:38)
[2022-01-12] MEDS ORDERED: Acetaminophen IV 1,000 MG/100 ML BAG IVPB PRN (06:00)
[2022-01-12] MEDS: CeFAZolin 2 GM/120 ML BAG IVPB SCH (06:48)
[2022-01-12] MEDS: Isosorbide MONOnitrate (24 HR) 60 MG TAB.ER.24H PO SCH (08:51)
[2022-01-12] MEDS: methocarbamoL 500 MG TABLET PO SCH ×3 (08:51→17:34)
[2022-01-12] MEDS: Furosemide 40 MG TABLET PO SCH ×2 (08:51→17:34)
[2022-01-12] MEDS: carvediloL 25 MG TABLET PO SCH ×2 (08:52→17:34)
[2022-01-12] MEDS: EPLERENONE 50 MG PO SCH (08:52)
[2022-01-12] MEDS: Gabapentin 100 MG CAPSULE PO SCH ×3 (08:52→22:06)
[2022-01-12] MEDS ORDERED: *HR* Rivaroxaban 10 MG TABLET PO SCH (09:00)
[2022-01-12] MEDS: Budesonide/Formoterol 160/4.5 1 PUFF INH IH SCH ×2 (11:05→19:35)
[2022-01-12] MEDS: Morphine PCA 30 MG/ 30 ML 30 ML PCA.VIAL IVC PRN (15:43)
[2022-01-12] MEDS ORDERED: *HR* Metformin 500 MG TABLET PO SCH (18:00)
[2022-01-12] MEDS: *HR* HYDROmorphone (PF) 1 MG/ML SYRINGE IVP PRN ×2 (20:39→23:51)
[2022-01-12] MEDS ORDERED: Insulin DETEMIR 100 UNIT/ML X5UNITS SUBQ SCH (21:00)
[2022-01-12] MEDS: *HR* OxyCODONE Immed Rel 15 MG TABLET PO PRN (22:06)
[2022-01-13] MEDS: *HR* OxyCODONE Immed Rel 15 MG TABLET PO PRN ×4 (02:06→15:13)
[2022-01-13] MEDS: *HR* HYDROmorphone (PF) 1 MG/ML SYRINGE IVP PRN ×4 (04:11→13:52)
[2022-01-13] MEDS: methocarbamoL 500 MG TABLET PO SCH ×3 (04:30→15:13)
[2022-01-13] MEDS: Isosorbide MONOnitrate (24 HR) 60 MG TAB.ER.24H PO SCH (08:39)
[2022-01-13] MEDS: carvediloL 25 MG TABLET PO SCH (08:40)
[2022-01-13] MEDS: Furosemide 40 MG TABLET PO SCH (08:40)
[2022-01-13] MEDS: Gabapentin 100 MG CAPSULE PO SCH (08:42)
[2022-01-13] MEDS: EPLERENONE 50 MG PO SCH (08:42)
[2022-01-13] MEDS: Budesonide/Formoterol 160/4.5 1 PUFF INH IH SCH (10:09)
[2022-01-13 11:43] VITALS: TEMP 97.9
[2022-01-13 14:50] VITALS: BP 106/65; PULSE 85; O2SAT 97
== END 2022-01-13 15:21 | disposition home or self-care (01) ==
LOC: SDCAOSI 09:39 → 4WAOSI 09:39
PROVIDERS: ADMIT Orthopaedic Surgery; ATTEND Orthopaedic Surgery

== ENCOUNTER 2022-04-04 11:43 | Inpatient (IN) ==
[2022-04-04] MEDS ORDERED: 0.9 % Sodium Chloride 1,000 ML IVC ONE ×3 (12:20→15:32)
[2022-04-04] MEDS ORDERED: Piperacillin/Tazobactam 3.375 GM in 0.9 % Sodium Chloride Mini Bag 100 ML IVPB ONE (12:23)
[2022-04-04 12:32] LABS: Basophils % 0.3 %; Eosinophils % 0.2 %; Hematocrit 32.1 % (37.5-50.1); Hemoglobin 10.2 g/dL (12.9-16.9); Immature Granulocytes % 0.8 % (0-4); Lymphocytes % 8.6 %; Mean Corpuscular HGB Conc 31.8 g/dL (31.6-35.5); Mean Corpuscular Hemoglobin 26.2 pg (28.0-33.3); Mean Corpuscular Volume 82.3 fL (83.0-100.0); Mean Platelet Volume 10.7 fL (9.4-12.4); Monocytes # 0.7 K/mcL (0.0-1.3); Monocytes % 6.1 %; Neutrophils # 9.9 K/mcL (1.6-8.9); Platelet Count 220 K/mcL (140-400); Red Cell Distribution Width 15.1 % (11.5-14.5); White Blood Count 11.8 K/mcL (4.3-11.1)
[2022-04-04 12:41] LABS: INR 2.1; Prothrombin Time 23.8 Seconds (9.4-12.1)
[2022-04-04] MEDS ORDERED: Ipratropium/Albuterol Neb 3 ML IH ONE (12:52)
[2022-04-04] MEDS ORDERED: Albuterol 2.5 MG/3 ML NEBULIZER IH ONE (12:52)
[2022-04-04] MEDS ORDERED: methylPREDNISolone 125 MG/2 ML VIAL IVP ONE (12:52)
[2022-04-04 12:54] LABS: Albumin 3.4 g/dL (3.5-5.7); Bilirubin,Total 0.7 mg/dL (0.3-1.0); Calcium 8.6 mg/dL (8.6-10.3); Globulin 3.3 g/dL (2.4-3.5); Magnesium 1.3 mg/dL (1.6-2.6); Total Protein 6.7 g/dL (6.4-8.9); Troponin I 0.03 ng/mL (< 0.04)
[2022-04-04] MEDS ORDERED: Vancomycin 2,000 MG/520 ML IV.SOLN IVPB ONE (13:00)
[2022-04-04 13:46] LABS: Adenovirus Not Detected (Not Detect); Coronavirus 229E Not Detected (Not Detect); Coronavirus HKU1 Not Detected (Not Detect); Coronavirus NL63 Not Detected (Not Detect); Coronavirus OC43 Not Detected (Not Detect); Human Metapneumovirus Not Detected (Not Detect); Human Rhinovirus/Enterovirus Not Detected (Not Detect); Influenza A Subtype 2009 H1 Not Detected (Not Detect); Influenza B Not Detected (Not Detect); Parainfluenza Virus 1 Not Detected (Not Detect); SARS-CoV-2 Not Detected (Not Detect)
[2022-04-04 13:47] LABS: Bordetella Pertussis Not Detected (Not Detect); Chlamydophila pneumoniae Not Detected (Not Detect); Mycoplasma pneumoniae Not Detected (Not Detect); Parainfluenza Virus 2 Not Detected (Not Detect); Parainfluenza Virus 3 Not Detected (Not Detect); Parainfluenza Virus 4 Not Detected (Not Detect); Respiratory Syncytial Virus Not Detected (Not Detect)
[2022-04-04 14:20] LABS: Bilirubin,Urine Negative (Negative); Blood,Urine Negative (Negative); Clarity,Urine Clear (Clear); Color,Urine Light-Yellow (Yellow); Glucose,Urine (UA) Normal (Normal); Ketones,Urine Negative (Negative); Leukocyte Esterase,Urine Negative (Negative); Nitrite,Urine Negative (Negative); PH,Urine 5.5 pH Units (5.0-8.0); Protein,Urine Negative (Neg-Trace); Specific Gravity,Urine 1.014 (1.010-1.025); Urobilinogen,Urine Normal (Normal)
[2022-04-04] MEDS ORDERED: Melatonin 3 MG TABLET PO PRN (15:22)
[2022-04-04] MEDS ORDERED: Ondansetron 4 MG/2 ML VIAL IVP PRN (15:22)
[2022-04-04] MEDS ORDERED: Naloxone 0.4 MG/ML INJ IVP PRN (15:22)
[2022-04-04] MEDS ORDERED: Dextrose Gel 15 GM/37.5 ML TUBE PO PRN ×2 (15:27)
[2022-04-04] MEDS ORDERED: *HR* Dextrose 50 % in Water (Syg) 50 ML SYRINGE IVP PRN (15:27)
[2022-04-04] MEDS ORDERED: D5% in Water 1,000 ML IVC PRN (15:27)
[2022-04-04] MEDS ORDERED: *HR* Digoxin 0.5 MG/2 ML AMPUL IVP ONE (15:53)
[2022-04-04] MEDS: *HR* OxyCODONE Immed Rel 15 MG TABLET PO PRN (16:03)
[2022-04-04] MEDS ORDERED: *HR* Metoprolol 5 MG/5 ML VIAL IVP ONE (16:09)
[2022-04-04] MEDS ORDERED: Perflutren Lipid Microsphere 1.3 ML in 0.9 % Sodium Chloride 8.7 ML IVP PRN (17:06)
[2022-04-04] MEDS ORDERED: Amiodarone Premix 150 MG/100 ML BAG IVPB ONE (17:20)
[2022-04-04] MEDS ORDERED: Amiodarone Premix 360 MG/200 ML BAG IVC ONE (17:25)
[2022-04-04] MEDS: Insulin LISPRO 300 UNITS/3 ML VIAL SUBQ SCH (17:33)
[2022-04-04] MEDS: predniSONE 20 MG TABLET PO SCH (17:38)
[2022-04-04] MEDS ORDERED: *HR* Heparin 5,000 UNIT/ML VIAL IVP PRN ×2 (17:49)
[2022-04-04] MEDS ORDERED: Heparin 25,000UNIT/250ML 1/2NS 25,000 UNIT/250 ML IV.SOLN IVC SCH (18:00)
[2022-04-04] MEDS ORDERED: Azithromycin 500 MG in 0.9 % Sodium Chloride 250 ML IVPB SCH (18:00)
[2022-04-04] MEDS ORDERED: Albumin 25% 25gram/100mL 25 GM/100 ML IV.SOLN IVC STA (18:16)
[2022-04-04 18:35] LABS: Hemoglobin 9.8 g/dL (12.9-16.9); Mean Corpuscular HGB Conc 31.6 g/dL (31.6-35.5); Mean Corpuscular Hemoglobin 26.3 pg (28.0-33.3); Mean Corpuscular Volume 83.3 fL (83.0-100.0); Mean Platelet Volume 10.8 fL (9.4-12.4); Platelet Count 185 K/mcL (140-400); Red Blood Count 3.72 M/mcL (4.19-5.50); White Blood Count 10.3 K/mcL (4.3-11.1)
[2022-04-04 18:52] LABS: INR 1.8; Prothrombin Time 19.6 Seconds (9.4-12.1)
[2022-04-04 18:57] LABS: Heparin anti-factor XA UFH 1.99 IU/mL (0.30-0.70)
[2022-04-04] MEDS: Heparin 25,000UNIT/250ML 1/2NS 25,000 UNIT/250 ML IV.SOLN IVC SCH (20:26)
[2022-04-04] MEDS: Ipratropium/Albuterol Neb 3 ML IH SCH (20:26)
[2022-04-04] MEDS ORDERED: Insulin LISPRO 300 UNITS/3 ML VIAL SUBQ SCH (21:00)
[2022-04-04] MEDS: Piperacillin/Tazobactam 3.375 GM in 0.9 % Sodium Chloride Mini Bag 100 ML IVPB SCH (23:39)
[2022-04-05] MEDS: Ipratropium/Albuterol Neb 3 ML IH SCH ×7 (00:04→20:48)
[2022-04-05] MEDS: Amiodarone Premix 360 MG/200 ML BAG IVC SCH ×2 (00:48→13:09)
[2022-04-05 03:45] LABS: Basophils % 0.1 %; Hematocrit 28.5 % (37.5-50.1); Immature Granulocytes % 0.9 % (0-4); Lymphocytes # 0.5 K/mcL (0.6-4.6); Lymphocytes % 7.5 %; Mean Corpuscular HGB Conc 31.6 g/dL (31.6-35.5); Mean Corpuscular Hemoglobin 26.5 pg (28.0-33.3); Mean Corpuscular Volume 83.8 fL (83.0-100.0); Mean Platelet Volume 11.1 fL (9.4-12.4); Monocytes # 0.1 K/mcL (0.0-1.3); Monocytes % 1.6 %; Neutrophils # 6.1 K/mcL (1.6-8.9); Platelet Count 180 K/mcL (140-400); Red Cell Distribution Width 15.1 % (11.5-14.5); Segmented Neutrophils % 89.9 %; White Blood Count 6.8 K/mcL (4.3-11.1)
[2022-04-05 03:57] LABS: VBG Ionized Calcium 1.11 mmol/L (1.15-1.35)
[2022-04-05 04:04] LABS: Calcium 8.1 mg/dL (8.6-10.3); Magnesium 1.7 mg/dL (1.6-2.6); Phosphorous 4.1 mg/dL (2.7-4.5); Potassium 4.2 mEq/L (3.5-5.1)
[2022-04-05 06:00] LABS: Troponin I 0.03 ng/mL (< 0.04)
[2022-04-05] MEDS: predniSONE 20 MG TABLET PO SCH (07:33)
[2022-04-05] MEDS: Piperacillin/Tazobactam 3.375 GM in 0.9 % Sodium Chloride Mini Bag 100 ML IVPB SCH ×3 (07:34→23:06)
[2022-04-05] MEDS: Insulin LISPRO 300 UNITS/3 ML VIAL SUBQ SCH ×4 (07:44→21:07)
[2022-04-05] MEDS: *HR* OxyCODONE Immed Rel 15 MG TABLET PO PRN ×3 (08:26→21:12)
[2022-04-05] MEDS ORDERED: *HR* Metoprolol 5 MG/5 ML VIAL IVP PRN (10:18)
[2022-04-05] MEDS: Heparin 25,000UNIT/250ML 1/2NS 25,000 UNIT/250 ML IV.SOLN IVC SCH (11:10)
[2022-04-05 11:20] LABS: Calcium 8.2 mg/dL (8.6-10.3); Potassium 4.2 mEq/L (3.5-5.1)
[2022-04-05] MEDS: carvediloL 6.25 MG TABLET PO SCH ×2 (11:44→18:02)
[2022-04-05] MEDS: Insulin DETEMIR 100 UNIT/ML X5UNITS SUBQ SCH ×2 (12:31→21:06)
[2022-04-05] MEDS ORDERED: Vancomycin 1,500 MG/265 ML IV.SOLN IVPB SCH (13:00)
[2022-04-05 13:31] LABS: Digoxin < 0.3 ng/mL (0.8-2.0); Magnesium 1.6 mg/dL (1.6-2.6)
[2022-04-05] MEDS: *HR* Metoprolol 5 MG/5 ML VIAL IVP PRN ×2 (14:43→21:19)
[2022-04-05] MEDS ORDERED: carvediloL 6.25 MG TABLET PO ONE (15:20)
[2022-04-05] MEDS ORDERED: *HR* Metoprolol 5 MG/5 ML VIAL IVP ONE (16:55)
[2022-04-05] MEDS ORDERED: carvediloL 6.25 MG TABLET PO SCH (17:00)
[2022-04-06] MEDS: Amiodarone Premix 360 MG/200 ML BAG IVC SCH ×2 (00:20→12:26)
[2022-04-06] MEDS: Ipratropium/Albuterol Neb 3 ML IH SCH ×3 (00:35→07:56)
[2022-04-06] MEDS: *HR* OxyCODONE Immed Rel 15 MG TABLET PO PRN ×5 (01:22→19:41)
[2022-04-06] MEDS: *HR* Metoprolol 5 MG/5 ML VIAL IVP PRN (03:20)
[2022-04-06 03:56] LABS: Basophils % 0.1 %; Eosinophils % 0.1 %; Hematocrit 30.4 % (37.5-50.1); Hemoglobin 9.5 g/dL (12.9-16.9); Immature Granulocytes % 0.7 % (0-4); Lymphocytes # 1.1 K/mcL (0.6-4.6); Lymphocytes % 9.9 %; Mean Corpuscular HGB Conc 31.3 g/dL (31.6-35.5); Mean Corpuscular Hemoglobin 26.1 pg (28.0-33.3); Mean Corpuscular Volume 83.5 fL (83.0-100.0); Monocytes # 0.7 K/mcL (0.0-1.3); Monocytes % 6.9 %; Neutrophils # 8.8 K/mcL (1.6-8.9); Platelet Count 265 K/mcL (140-400); Red Blood Count 3.64 M/mcL (4.19-5.50); Red Cell Distribution Width 14.9 % (11.5-14.5); Segmented Neutrophils % 82.3 %
[2022-04-06 03:57] LABS: White Blood Count 10.7 K/mcL (4.3-11.1)
[2022-04-06 04:10] LABS: Albumin 3.2 g/dL (3.5-5.7); Albumin/Globulin Ratio 1.2 (1.1-2.2); Bilirubin,Total 0.3 mg/dL (0.3-1.0); Calcium 8.3 mg/dL (8.6-10.3); Globulin 2.7 g/dL (2.4-3.5); Magnesium 2.4 mg/dL (1.6-2.6); Phosphorous 2.4 mg/dL (2.7-4.5); Potassium 4.2 mEq/L (3.5-5.1); Total Protein 5.9 g/dL (6.4-8.9)
[2022-04-06] MEDS ORDERED: carvediloL 6.25 MG TABLET PO SCH ×2 (08:15→17:00)
[2022-04-06] MEDS: Piperacillin/Tazobactam 3.375 GM in 0.9 % Sodium Chloride Mini Bag 100 ML IVPB SCH ×2 (08:52→16:49)
[2022-04-06] MEDS: Insulin DETEMIR 100 UNIT/ML X5UNITS SUBQ SCH ×2 (09:08→19:44)
[2022-04-06] MEDS: Insulin LISPRO 300 UNITS/3 ML VIAL SUBQ SCH ×4 (09:10→19:41)
[2022-04-06] MEDS: Heparin 25,000UNIT/250ML 1/2NS 25,000 UNIT/250 ML IV.SOLN IVC SCH ×2 (11:05)
[2022-04-06] MEDS ORDERED: carvediloL 6.25 MG TABLET PO ONE (12:00)
[2022-04-06] MEDS ORDERED: Lidocaine Viscous Oral Soln 15 ML SOLUTION MM PRN (12:29)
[2022-04-06] MEDS ORDERED: *HR* FentaNYL (PF) 100 MCG/2 ML VIAL IVP PRN (12:29)
[2022-04-06] MEDS ORDERED: *HR* Midazolam HCl 5 MG/5 ML VIAL IVP PRN (12:30)
[2022-04-06] MEDS ORDERED: 0.9 % Sodium Chloride 500 ML IVC ONE (12:30)
[2022-04-06] MEDS: Levalbuterol Neb 1.25 MG/3 ML IH SCH ×2 (15:06→21:12)
[2022-04-06] MEDS: Apixaban 5 MG TABLET PO SCH (19:41)
[2022-04-06] MEDS: carvediloL 6.25 MG TABLET PO SCH (19:44)
[2022-04-07] MEDS: Piperacillin/Tazobactam 3.375 GM in 0.9 % Sodium Chloride Mini Bag 100 ML IVPB SCH ×3 (00:40→16:57)
[2022-04-07] MEDS: *HR* OxyCODONE Immed Rel 15 MG TABLET PO PRN ×6 (00:47→21:19)
[2022-04-07] MEDS: Levalbuterol Neb 1.25 MG/3 ML IH SCH ×4 (03:40→21:50)
[2022-04-07 04:27] LABS: Basophils % 0.1 %; Eosinophils % 0.3 %; Hematocrit 29.5 % (37.5-50.1); Hemoglobin 9.1 g/dL (12.9-16.9); Immature Granulocytes % 0.4 % (0-4); Lymphocytes # 1.1 K/mcL (0.6-4.6); Lymphocytes % 15.4 %; Mean Corpuscular HGB Conc 30.8 g/dL (31.6-35.5); Mean Corpuscular Hemoglobin 25.9 pg (28.0-33.3); Mean Platelet Volume 11.2 fL (9.4-12.4); Monocytes # 0.5 K/mcL (0.0-1.3); Monocytes % 7.6 %; Neutrophils # 5.4 K/mcL (1.6-8.9); Platelet Count 215 K/mcL (140-400); Red Blood Count 3.51 M/mcL (4.19-5.50); Red Cell Distribution Width 15.1 % (11.5-14.5); Segmented Neutrophils % 76.2 %; White Blood Count 7.1 K/mcL (4.3-11.1)
[2022-04-07 04:36] LABS: VBG Ionized Calcium 1.17 mmol/L (1.15-1.35)
[2022-04-07 04:36] LABS: Albumin 3.1 g/dL (3.5-5.7); Albumin/Globulin Ratio 1.1 (1.1-2.2); Bilirubin,Total 0.3 mg/dL (0.3-1.0); Calcium 8.2 mg/dL (8.6-10.3); Globulin 2.8 g/dL (2.4-3.5); Magnesium 2.1 mg/dL (1.6-2.6); Phosphorous 3.7 mg/dL (2.7-4.5); Potassium 4.1 mEq/L (3.5-5.1); Total Protein 5.9 g/dL (6.4-8.9)
[2022-04-07] MEDS ORDERED: SODIUM PHOSPHATE IVPB ONE (07:34)
[2022-04-07] MEDS ORDERED: SODIUM CHLORIDE 0.9% IVPB ONE (07:34)
[2022-04-07] MEDS: carvediloL 6.25 MG TABLET PO SCH ×2 (09:00→16:57)
[2022-04-07] MEDS: Apixaban 5 MG TABLET PO SCH ×2 (09:00→21:18)
[2022-04-07] MEDS: Insulin LISPRO 300 UNITS/3 ML VIAL SUBQ SCH ×4 (09:02→21:19)
[2022-04-07] MEDS: Insulin DETEMIR 100 UNIT/ML X5UNITS SUBQ SCH ×2 (09:10→21:26)
[2022-04-07] MEDS ORDERED: Sennosides 8.6 MG TABLET PO PRN (11:25)
[2022-04-07] MEDS ORDERED: carvediloL 6.25 MG TABLET PO ONE (12:00)
[2022-04-08] MEDS: *HR* OxyCODONE Immed Rel 15 MG TABLET PO PRN ×3 (01:22→09:21)
[2022-04-08] MEDS: Piperacillin/Tazobactam 3.375 GM in 0.9 % Sodium Chloride Mini Bag 100 ML IVPB SCH ×2 (01:23→07:47)
[2022-04-08 03:34] LABS: VBG Ionized Calcium 1.12 mmol/L (1.15-1.35)
[2022-04-08 03:40] LABS: Basophils % 0.3 %; Eosinophils # 0.1 K/mcL (0.0-0.6); Eosinophils % 0.8 %; Hematocrit 29.1 % (37.5-50.1); Immature Granulocytes % 0.8 % (0-4); Lymphocytes # 1.1 K/mcL (0.6-4.6); Mean Corpuscular HGB Conc 30.9 g/dL (31.6-35.5); Mean Corpuscular Hemoglobin 25.9 pg (28.0-33.3); Mean Corpuscular Volume 83.9 fL (83.0-100.0); Mean Platelet Volume 11.2 fL (9.4-12.4); Monocytes # 0.5 K/mcL (0.0-1.3); Monocytes % 7.5 %; Neutrophils # 4.9 K/mcL (1.6-8.9); Platelet Count 190 K/mcL (140-400); Red Blood Count 3.47 M/mcL (4.19-5.50); Red Cell Distribution Width 15.1 % (11.5-14.5); Segmented Neutrophils % 73.6 %; White Blood Count 6.7 K/mcL (4.3-11.1)
[2022-04-08] MEDS: Levalbuterol Neb 1.25 MG/3 ML IH SCH ×2 (03:45→07:34)
[2022-04-08 03:58] LABS: Alanine Aminotransferase 9 Units/L (7-52); Albumin 3.1 g/dL (3.5-5.7); Albumin/Globulin Ratio 1.1 (1.1-2.2); Alkaline Phosphatase 57 Units/L (34-104); Aspartate Amino Transferase 9 Units/L (13-39); BUN/Creatinine Ratio 20 (6-26); Bilirubin,Total 0.3 mg/dL (0.3-1.0); Blood Urea Nitrogen 28 mg/dL (8-23); Calcium 8.1 mg/dL (8.6-10.3); Carbon Dioxide 26 mEq/L (23-29); Chloride 109 mEq/L (98-107); Globulin 2.7 g/dL (2.4-3.5); Glucose 195 mg/dL (70-105); Magnesium 2.1 mg/dL (1.6-2.6); Osmolality,Calculated 299 (280-300); Phosphorous 3.3 mg/dL (2.7-4.5); Potassium 4.2 mEq/L (3.5-5.1); Sodium 139 mEq/L (136-145); Total Protein 5.8 g/dL (6.4-8.9); eGFR For African Americans > 60 (> 60); eGFR For Non-African Americans 52 (> 60)
[2022-04-08 05:30] VITALS: BP 142/78; PULSE 71; TEMP 98.1
[2022-04-08 07:36] VITALS: O2SAT 96
[2022-04-08] MEDS: Apixaban 5 MG TABLET PO SCH (07:47)
[2022-04-08] MEDS: carvediloL 6.25 MG TABLET PO SCH ×2 (07:47→10:05)
[2022-04-08] MEDS: Insulin LISPRO 300 UNITS/3 ML VIAL SUBQ SCH (07:51)
[2022-04-08] MEDS: Insulin DETEMIR 100 UNIT/ML X5UNITS SUBQ SCH (09:23)
== END 2022-04-08 11:30 | disposition home health service (06) | DRG 871 ==
LOC: 2NENU 11:43 → EMEROOARM 11:43 → 2NENU 15:11 → 2NNU 18:19 → ICNU 21:04 → 2ANU 04-07 18:07
PROVIDERS: ADMIT Internal Medicine; ATTEND Internal Medicine

== ENCOUNTER 2022-04-09 19:55 | Inpatient (IN) ==
[2022-04-09] MEDS ORDERED: Amiodarone Premix 360 MG/200 ML BAG IVC ONE (20:52)
[2022-04-09] MEDS ORDERED: Amiodarone Premix 150 MG/100 ML BAG IVPB ONE (20:52)
[2022-04-09] MEDS ORDERED: Potassium Chloride Elixir 20 MEQ/15 ML UDC PO ONE (20:54)
[2022-04-09 21:41] LABS: Basophils % 0.5 %; Eosinophils # 0.1 K/mcL (0.0-0.6); Eosinophils % 1.6 %; Hematocrit 31.7 % (37.5-50.1); Hemoglobin 10.1 g/dL (12.9-16.9); Immature Granulocytes % 0.9 % (0-4); Lymphocytes # 1.5 K/mcL (0.6-4.6); Lymphocytes % 17.2 %; Mean Corpuscular HGB Conc 31.9 g/dL (31.6-35.5); Mean Corpuscular Volume 81.7 fL (83.0-100.0); Mean Platelet Volume 10.7 fL (9.4-12.4); Monocytes # 0.6 K/mcL (0.0-1.3); Neutrophils # 6.2 K/mcL (1.6-8.9); Platelet Count 228 K/mcL (140-400); Red Blood Count 3.88 M/mcL (4.19-5.50); Red Cell Distribution Width 14.7 % (11.5-14.5); Segmented Neutrophils % 72.8 %; White Blood Count 8.5 K/mcL (4.3-11.1)
[2022-04-09 21:53] LABS: INR 1.5; Prothrombin Time 16.8 Seconds (9.4-12.1)
[2022-04-09 21:57] LABS: Activated Partial Thrombo Time 33.4 Seconds (26.0-36.0)
[2022-04-09 22:00] LABS: BUN/Creatinine Ratio 14 (6-26); Blood Urea Nitrogen 17 mg/dL (8-23); Calcium 8.7 mg/dL (8.6-10.3); Carbon Dioxide 28 mEq/L (23-29); Chloride 104 mEq/L (98-107); Glucose 164 mg/dL (70-105); Magnesium 1.6 mg/dL (1.6-2.6); Osmolality,Calculated 293 (280-300); Potassium 3.6 mEq/L (3.5-5.1); Sodium 139 mEq/L (136-145); eGFR For African Americans > 60 (> 60); eGFR For Non-African Americans 58 (> 60)
[2022-04-09] MEDS ORDERED: *HR* OxyCODONE Immed Rel 15 MG TABLET PO STA (22:00)
[2022-04-09 22:04] LABS: Troponin I 0.04 ng/mL (< 0.04)
[2022-04-09] MEDS ORDERED: Furosemide 40 MG/4 ML VIAL IVP ONE (22:15)
[2022-04-10] MEDS ORDERED: Ondansetron 4 MG/2 ML VIAL IVP PRN (00:27)
[2022-04-10] MEDS ORDERED: Naloxone 0.4 MG/ML INJ IVP PRN (00:27)
[2022-04-10] MEDS ORDERED: Melatonin 3 MG TABLET PO PRN (00:27)
[2022-04-10 01:02] LABS: Bilirubin,Urine Negative (Negative); Blood,Urine Negative (Negative); Clarity,Urine Clear (Clear); Color,Urine Light-Yellow (Yellow); Glucose,Urine (UA) 30 mg/dL (Normal); Hyaline Casts,Urine Few per lpf (None Seen); Ketones,Urine Negative (Negative); Leukocyte Esterase,Urine Negative (Negative); Mucus,Urine Few per lpf (None-Few); Nitrite,Urine Negative (Negative); PH,Urine 5.5 pH Units (5.0-8.0); Protein,Urine Negative (Neg-Trace); RBC,Urine 0-3 per hpf (0-3); Specific Gravity,Urine 1.012 (1.010-1.025); Urobilinogen,Urine Normal (Normal); WBC,Urine 0-3 per hpf (0-3)
[2022-04-10] MEDS: *HR* OxyCODONE Immed Rel 15 MG TABLET PO SCH ×6 (02:50→22:25)
[2022-04-10] MEDS ORDERED: *HR* Dextrose 50 % in Water (Syg) 50 ML SYRINGE IVP PRN (03:52)
[2022-04-10] MEDS ORDERED: Dextrose Gel 15 GM/37.5 ML TUBE PO PRN ×2 (03:52)
[2022-04-10] MEDS ORDERED: D5% in Water 1,000 ML IVC PRN (03:52)
[2022-04-10] MEDS ORDERED: Amiodarone Premix 360 MG/200 ML BAG IVC SCH (04:00)
[2022-04-10] MEDS ORDERED: Magnesium Sulfate 1 GM/102 ML PIGGYBACK IVPB ONE ×2 (04:39→07:40)
[2022-04-10 05:03] LABS: Basophils % 0.4 %; Eosinophils # 0.2 K/mcL (0.0-0.6); Eosinophils % 2.2 %; Hematocrit 30.6 % (37.5-50.1); Hemoglobin 9.6 g/dL (12.9-16.9); Lymphocytes # 1.5 K/mcL (0.6-4.6); Lymphocytes % 22.1 %; Mean Corpuscular HGB Conc 31.4 g/dL (31.6-35.5); Mean Corpuscular Hemoglobin 25.9 pg (28.0-33.3); Mean Corpuscular Volume 82.5 fL (83.0-100.0); Mean Platelet Volume 10.6 fL (9.4-12.4); Monocytes # 0.6 K/mcL (0.0-1.3); Monocytes % 8.8 %; Neutrophils # 4.4 K/mcL (1.6-8.9); Platelet Count 208 K/mcL (140-400); Red Blood Count 3.71 M/mcL (4.19-5.50); Red Cell Distribution Width 14.8 % (11.5-14.5); Segmented Neutrophils % 65.5 %; White Blood Count 6.7 K/mcL (4.3-11.1)
[2022-04-10 05:09] LABS: INR 1.5; Prothrombin Time 16.7 Seconds (9.4-12.1)
[2022-04-10 05:24] LABS: Alanine Aminotransferase 7 Units/L (7-52); Albumin 3.4 g/dL (3.5-5.7); Albumin/Globulin Ratio 1.3 (1.1-2.2); Alkaline Phosphatase 64 Units/L (34-104); Aspartate Amino Transferase 8 Units/L (13-39); BUN/Creatinine Ratio 14 (6-26); Bilirubin,Total 0.4 mg/dL (0.3-1.0); Blood Urea Nitrogen 19 mg/dL (8-23); Calcium 8.4 mg/dL (8.6-10.3); Carbon Dioxide 30 mEq/L (23-29); Chloride 106 mEq/L (98-107); Globulin 2.6 g/dL (2.4-3.5); Glucose 174 mg/dL (70-105); Magnesium 1.7 mg/dL (1.6-2.6); eGFR For African Americans > 60 (> 60); eGFR For Non-African Americans 54 (> 60)
[2022-04-10 05:28] LABS: Osmolality,Calculated 300 (280-300); Phosphorous 3.1 mg/dL (2.7-4.5); Potassium 3.9 mEq/L (3.5-5.1); Sodium 142 mEq/L (136-145)
[2022-04-10] MEDS: Apixaban 5 MG TABLET PO SCH ×2 (08:39→22:25)
[2022-04-10] MEDS: Furosemide 40 MG TABLET PO SCH ×2 (08:39→16:43)
[2022-04-10] MEDS: Insulin LISPRO 300 UNITS/3 ML VIAL SUBQ SCH ×3 (08:42→17:27)
[2022-04-10] MEDS: *HR* Amiodarone 200 MG TABLET PO SCH (09:06)
[2022-04-10] MEDS: Magnesium Oxide 400 MG TABLET PO SCH (18:36)
[2022-04-11] MEDS: Insulin LISPRO 300 UNITS/3 ML VIAL SUBQ SCH ×4 (01:15→16:37)
[2022-04-11 01:51] LABS: Calcium 8.1 mg/dL (8.6-10.3); Magnesium 1.7 mg/dL (1.6-2.6); Potassium 4.1 mEq/L (3.5-5.1)
[2022-04-11] MEDS: *HR* OxyCODONE Immed Rel 15 MG TABLET PO SCH ×6 (04:55→21:15)
[2022-04-11] MEDS: *HR* Amiodarone 200 MG TABLET PO SCH (07:39)
[2022-04-11] MEDS: Apixaban 5 MG TABLET PO SCH ×2 (07:39→21:15)
[2022-04-11] MEDS: Magnesium Oxide 400 MG TABLET PO SCH (07:39)
[2022-04-11] MEDS ORDERED: Sennosides 8.6 MG TABLET PO PRN (08:26)
[2022-04-11] MEDS: carvediloL 6.25 MG TABLET PO SCH ×2 (08:53→16:37)
[2022-04-11] MEDS: Isosorbide MONOnitrate (24 HR) 60 MG TAB.ER.24H PO SCH (08:53)
[2022-04-11] MEDS: EPLERENONE 50 MG PO SCH (08:55)
[2022-04-11] MEDS ORDERED: Magnesium Oxide 400 MG TABLET PO SCH (09:00)
[2022-04-11] MEDS: Budesonide/Formoterol 160/4.5 1 PUFF INH IH SCH ×2 (11:42→20:19)
[2022-04-11] MEDS ORDERED: Insulin LISPRO 300 UNITS/3 ML VIAL SUBQ SCH (21:00)
[2022-04-11] MEDS ORDERED: Insulin DETEMIR 100 UNIT/ML X5UNITS SUBQ SCH (21:00)
[2022-04-12] MEDS: *HR* OxyCODONE Immed Rel 15 MG TABLET PO SCH ×4 (01:09→13:29)
[2022-04-12] MEDS: Insulin LISPRO 300 UNITS/3 ML VIAL SUBQ SCH ×2 (07:42→11:55)
[2022-04-12] MEDS: Isosorbide MONOnitrate (24 HR) 60 MG TAB.ER.24H PO SCH (08:21)
[2022-04-12] MEDS: carvediloL 6.25 MG TABLET PO SCH ×2 (08:22→16:25)
[2022-04-12] MEDS: *HR* Amiodarone 200 MG TABLET PO SCH (08:22)
[2022-04-12] MEDS: Apixaban 5 MG TABLET PO SCH (08:22)
[2022-04-12] MEDS: Magnesium Oxide 400 MG TABLET PO SCH (08:23)
[2022-04-12] MEDS: EPLERENONE 50 MG PO SCH (08:23)
[2022-04-12 08:49] LABS: Calcium 8.5 mg/dL (8.6-10.3); Potassium 4.4 mEq/L (3.5-5.1)
[2022-04-12] MEDS: Budesonide/Formoterol 160/4.5 1 PUFF INH IH SCH (10:26)
[2022-04-12 11:41] VITALS: BP 148/75; TEMP 98.2; O2SAT 95
[2022-04-12 13:15] LABS: Chol/HDL Ratio 3.6 (0-4.9)
[2022-04-12 15:11] VITALS: PULSE 62
== END 2022-04-12 16:44 | disposition home or self-care (01) | DRG 308 ==
LOC: EMEROOARM 19:55 → 3BNU 19:55 → SUATTDRO 22:33 → 2NNU 22:34
PROVIDERS: ADMIT Internal Medicine; ATTEND Internal Medicine

== ENCOUNTER 2022-04-18 11:48 | Inpatient (IN) ==
[2022-04-18] MEDS ORDERED: 0.9 % Sodium Chloride 1,000 ML IVC ONE (12:02)
[2022-04-18] MEDS ORDERED: DilTIAZem 50 MG/50 ML IV.SOLN IVC SCH (12:15)
[2022-04-18 12:38] LABS: Basophils # 0.1 K/mcL (0.0-0.2); Basophils % 0.7 %; Eosinophils # 0.1 K/mcL (0.0-0.6); Eosinophils % 1.4 %; Hematocrit 37.2 % (37.5-50.1); Hemoglobin 11.6 g/dL (12.9-16.9); Immature Granulocytes % 0.5 % (0-4); Lymphocytes # 1.8 K/mcL (0.6-4.6); Lymphocytes % 19.4 %; Mean Corpuscular HGB Conc 31.2 g/dL (31.6-35.5); Mean Corpuscular Hemoglobin 26.5 pg (28.0-33.3); Mean Corpuscular Volume 85.1 fL (83.0-100.0); Mean Platelet Volume 10.2 fL (9.4-12.4); Monocytes # 0.5 K/mcL (0.0-1.3); Monocytes % 5.9 %; Neutrophils # 6.6 K/mcL (1.6-8.9); Platelet Count 250 K/mcL (140-400); Red Blood Count 4.37 M/mcL (4.19-5.50); Red Cell Distribution Width 15.9 % (11.5-14.5); Segmented Neutrophils % 72.1 %; White Blood Count 9.1 K/mcL (4.3-11.1)
[2022-04-18 12:57] LABS: BUN/Creatinine Ratio 12 (6-26); Blood Urea Nitrogen 22 mg/dL (8-23); Calcium 9.1 mg/dL (8.6-10.3); Carbon Dioxide 32 mEq/L (23-29); Chloride 100 mEq/L (98-107); Glucose 127 mg/dL (70-105); Osmolality,Calculated 297 (280-300); Sodium 141 mEq/L (136-145); Troponin I < 0.03 ng/mL (< 0.04); eGFR For African Americans 46 (> 60); eGFR For Non-African Americans 38 (> 60)
[2022-04-18 13:12] LABS: INR 1.9; Prothrombin Time 21.1 Seconds (9.4-12.1)
[2022-04-18 13:15] LABS: Activated Partial Thrombo Time 38.1 Seconds (26.0-36.0)
[2022-04-18] MEDS ORDERED: Naloxone 0.4 MG/ML INJ IVP PRN (14:00)
[2022-04-18] MEDS ORDERED: Ondansetron 4 MG/2 ML VIAL IVP PRN (14:00)
[2022-04-18] MEDS ORDERED: Morphine Sulfate 2 MG/ML SYRINGE IVP ONE (14:26)
[2022-04-18] MEDS ORDERED: Amiodarone Premix 150 MG/100 ML BAG IVPB ONE ×2 (14:30→16:00)
[2022-04-18] MEDS ORDERED: Amiodarone Premix 360 MG/200 ML BAG IVC ONE (14:30)
[2022-04-18] MEDS ORDERED: D5% in Water 1,000 ML IVC PRN (15:27)
[2022-04-18] MEDS ORDERED: Dextrose Gel 15 GM/37.5 ML TUBE PO PRN ×2 (15:27)
[2022-04-18] MEDS ORDERED: *HR* Dextrose 50 % in Water (Syg) 50 ML SYRINGE IVP PRN (15:27)
[2022-04-18] MEDS ORDERED: Ipratropium Neb 0.5 MG NEBULIZER IH PRN (15:30)
[2022-04-18] MEDS ORDERED: Levalbuterol Neb 0.63 MG/3 ML IH PRN (15:30)
[2022-04-18] MEDS ORDERED: Sennosides 8.6 MG TABLET PO PRN (15:49)
[2022-04-18] MEDS: Insulin LISPRO 300 UNITS/3 ML VIAL SUBQ SCH ×2 (16:13→20:14)
[2022-04-18] MEDS: *HR* OxyCODONE Immed Rel 5 MG TABLET PO PRN (20:29)
[2022-04-18] MEDS ORDERED: Amiodarone Premix 360 MG/200 ML BAG IVC SCH (20:32)
[2022-04-18] MEDS: Apixaban 5 MG TABLET PO SCH (20:36)
[2022-04-19] MEDS: Morphine Sulfate 2 MG/ML SYRINGE IVP PRN ×4 (02:02→20:33)
[2022-04-19 03:32] LABS: Basophils # 0.1 K/mcL (0.0-0.2); Basophils % 0.9 %; Eosinophils # 0.1 K/mcL (0.0-0.6); Eosinophils % 1.7 %; Immature Granulocytes % 0.3 % (0-4); Lymphocytes # 1.5 K/mcL (0.6-4.6); Lymphocytes % 26.3 %; Mean Corpuscular HGB Conc 30.3 g/dL (31.6-35.5); Mean Corpuscular Hemoglobin 26.5 pg (28.0-33.3); Mean Corpuscular Volume 87.2 fL (83.0-100.0); Mean Platelet Volume 11.2 fL (9.4-12.4); Monocytes # 0.4 K/mcL (0.0-1.3); Monocytes % 6.8 %; Neutrophils # 3.7 K/mcL (1.6-8.9); Platelet Count 167 K/mcL (140-400); Red Blood Count 3.44 M/mcL (4.19-5.50); White Blood Count 5.8 K/mcL (4.3-11.1)
[2022-04-19 03:33] LABS: Hemoglobin 9.1 g/dL (12.9-16.9)
[2022-04-19 03:39] LABS: Estimated Average Glucose 146 mg/dl; Hemoglobin A1C 6.7 %
[2022-04-19] MEDS: *HR* OxyCODONE Immed Rel 5 MG TABLET PO PRN ×4 (03:46→22:50)
[2022-04-19 04:26] LABS: Calcium 8.3 mg/dL (8.6-10.3); Magnesium 1.9 mg/dL (1.6-2.6); Potassium 3.9 mEq/L (3.5-5.1); Thyroid Stimulating Hormone 6.303 mcIU/mL (0.340-5.600)
[2022-04-19] MEDS: Isosorbide MONOnitrate (24 HR) 60 MG TAB.ER.24H PO SCH (08:00)
[2022-04-19] MEDS: Apixaban 5 MG TABLET PO SCH ×2 (08:00→20:33)
[2022-04-19] MEDS: Insulin LISPRO 300 UNITS/3 ML VIAL SUBQ SCH ×4 (08:00→20:35)
[2022-04-19] MEDS: Magnesium Oxide 400 MG TABLET PO SCH (08:01)
[2022-04-19] MEDS ORDERED: EPLERENONE 50 MG PO SCH (09:00)
[2022-04-19] MEDS: *HR* Amiodarone 200 MG TABLET PO SCH (09:39)
[2022-04-19] MEDS: Furosemide 40 MG TABLET PO SCH ×2 (13:16→20:43)
[2022-04-19] MEDS: DilTIAZem CD (24hr) 120 MG CAP.ER.24H PO SCH (13:16)
[2022-04-19] MEDS: carvediloL 25 MG TABLET PO SCH (16:02)
[2022-04-20] MEDS: Morphine Sulfate 2 MG/ML SYRINGE IVP PRN ×2 (03:08→09:20)
[2022-04-20 05:22] VITALS: O2SAT 97
[2022-04-20] MEDS: *HR* OxyCODONE Immed Rel 5 MG TABLET PO PRN (06:03)
[2022-04-20] MEDS ORDERED: Levothyroxine 25 MCG TABLET PO SCH (06:30)
[2022-04-20 06:59] LABS: Basophils # 0.1 K/mcL (0.0-0.2); Basophils % 0.9 %; Eosinophils # 0.1 K/mcL (0.0-0.6); Eosinophils % 1.7 %; Hematocrit 31.4 % (37.5-50.1); Hemoglobin 9.6 g/dL (12.9-16.9); Immature Granulocytes % 0.6 % (0-4); Lymphocytes # 1.5 K/mcL (0.6-4.6); Lymphocytes % 21.5 %; Mean Corpuscular HGB Conc 30.6 g/dL (31.6-35.5); Mean Corpuscular Hemoglobin 25.7 pg (28.0-33.3); Monocytes # 0.5 K/mcL (0.0-1.3); Monocytes % 7.3 %; Neutrophils # 4.7 K/mcL (1.6-8.9); Platelet Count 181 K/mcL (140-400); Red Blood Count 3.74 M/mcL (4.19-5.50); Red Cell Distribution Width 16.2 % (11.5-14.5)
[2022-04-20 07:36] LABS: Albumin 3.5 g/dL (3.5-5.7); Albumin/Globulin Ratio 1.2 (1.1-2.2); Bilirubin,Direct 0.1 mg/dL (0.0-0.2); Bilirubin,Indirect 0.5 mg/dL (0.0-1.0); Bilirubin,Total 0.6 mg/dL (0.3-1.0); Globulin 2.9 g/dL (2.4-3.5); Total Protein 6.4 g/dL (6.4-8.9)
[2022-04-20 07:47] VITALS: BP 144/75; PULSE 69; TEMP 97.7
[2022-04-20] MEDS: Insulin LISPRO 300 UNITS/3 ML VIAL SUBQ SCH ×2 (08:00→08:08)
[2022-04-20] MEDS: Magnesium Oxide 400 MG TABLET PO SCH (08:07)
[2022-04-20] MEDS: carvediloL 25 MG TABLET PO SCH (08:07)
[2022-04-20] MEDS: *HR* Amiodarone 200 MG TABLET PO SCH (08:07)
[2022-04-20] MEDS: Isosorbide MONOnitrate (24 HR) 60 MG TAB.ER.24H PO SCH (08:07)
[2022-04-20] MEDS: DilTIAZem CD (24hr) 120 MG CAP.ER.24H PO SCH (08:07)
[2022-04-20] MEDS: Apixaban 5 MG TABLET PO SCH (08:07)
[2022-04-20 10:31] LABS: Calcium 8.5 mg/dL (8.6-10.3); Potassium 4.1 mEq/L (3.5-5.1)
== END 2022-04-20 11:18 | disposition home or self-care (01) | DRG 308 ==
LOC: EMEROOARM 11:48 → 2NENU 11:48 → SUATTDRO 14:15 → 2NENU 15:07
PROVIDERS: ADMIT Pharmacist; ATTEND Pharmacist

== ENCOUNTER 2022-08-10 18:40 | Inpatient (IN) ==
[2022-08-10] MEDS ORDERED: *HR* FentaNYL (PF) 100 MCG/2 ML VIAL IVP ONE (19:04)
[2022-08-10] MEDS ORDERED: ceFAZolin 2,000 MG in Water for inj. (sterile) 20 ML IVP ONE (19:04)
[2022-08-10 21:15] LABS: Basophils # 0.1 K/mcL (0.0-0.2); Basophils % 0.5 %; Eosinophils # 0.1 K/mcL (0.0-0.6); Hematocrit 38.3 % (37.5-50.1); Hemoglobin 12.4 g/dL (12.9-16.9); Immature Granulocytes % 0.4 % (0-4); Lymphocytes # 1.5 K/mcL (0.6-4.6); Lymphocytes % 12.9 %; Mean Corpuscular HGB Conc 32.4 g/dL (31.6-35.5); Mean Corpuscular Hemoglobin 27.1 pg (28.0-33.3); Mean Corpuscular Volume 83.8 fL (83.0-100.0); Mean Platelet Volume 10.7 fL (9.4-12.4); Monocytes # 0.9 K/mcL (0.0-1.3); Neutrophils # 8.8 K/mcL (1.6-8.9); Platelet Count 213 K/mcL (140-400); Red Blood Count 4.57 M/mcL (4.19-5.50); Red Cell Distribution Width 15.1 % (11.5-14.5); Segmented Neutrophils % 77.2 %; White Blood Count 11.4 K/mcL (4.3-11.1)
[2022-08-10] MEDS: Morphine Sulfate 2 MG/ML SYRINGE IVP ONE (21:23)
[2022-08-10 21:32] LABS: Potassium 4.2 mEq/L (3.5-5.1)
[2022-08-10] MEDS ORDERED: Vancomycin 1,750 MG/517.5 ML IV.SOLN IVPB ONE (22:02)
[2022-08-10] MEDS ORDERED: Ondansetron ODT 4 MG TAB.RAPDIS SL PRN (22:49)
[2022-08-10] MEDS ORDERED: Naloxone 0.4 MG/ML INJ IVP PRN (22:49)
[2022-08-10] MEDS ORDERED: Melatonin 3 MG TABLET PO PRN (22:49)
[2022-08-10] MEDS ORDERED: Vancomycin 1,750 MG in 0.9 % Sodium Chloride 250 ML IVPB SCH (23:00)
[2022-08-10] MEDS ORDERED: *HR* Dextrose 50 % in Water (Syg) 50 ML SYRINGE IVP PRN (23:22)
[2022-08-10] MEDS ORDERED: D5% in Water 1,000 ML IVC PRN (23:22)
[2022-08-10] MEDS ORDERED: Dextrose Gel 15 GM/37.5 ML TUBE PO PRN ×2 (23:22)
[2022-08-11] MEDS ORDERED: Morphine Sulfate 2 MG/ML SYRINGE IVP ONE (00:32)
[2022-08-11] MEDS: 0.9 % Sodium Chloride 1,000 ML IVC SCH ×3 (00:59→16:33)
[2022-08-11] MEDS: Morphine Sulfate 2 MG/ML SYRINGE IVP ONE (00:59)
[2022-08-11] MEDS: Insulin LISPRO 300 UNITS/3 ML VIAL SUBQ SCH ×5 (01:44→20:57)
[2022-08-11] MEDS ORDERED: Naloxone 0.4 MG/ML INJ IVP PRN (06:14)
[2022-08-11] MEDS: CeFAZolin 2,000 MG/120 ML BAG IVPB SCH ×3 (07:14→23:44)
[2022-08-11 08:57] LABS: Calcium 8.8 mg/dL (8.6-10.3); Magnesium 1.9 mg/dL (1.6-2.6); Phosphorous 3.3 mg/dL (2.7-4.5); Potassium 4.2 mEq/L (3.5-5.1)
[2022-08-11] MEDS ORDERED: *HR* OxyCODONE Immed Rel 15 MG TABLET PO PRN (09:27)
[2022-08-11 09:44] LABS: Hematocrit 37.7 % (37.5-50.1); Hemoglobin 12.4 g/dL (12.9-16.9); Mean Corpuscular HGB Conc 32.9 g/dL (31.6-35.5); Mean Corpuscular Hemoglobin 27.3 pg (28.0-33.3); Mean Platelet Volume 10.4 fL (9.4-12.4); Platelet Count 200 K/mcL (140-400); Red Blood Count 4.54 M/mcL (4.19-5.50); Red Cell Distribution Width 15.2 % (11.5-14.5); White Blood Count 9.1 K/mcL (4.3-11.1)
[2022-08-11 12:17] LABS: Estimated Average Glucose 148 mg/dl; Hemoglobin A1C 6.8 %
[2022-08-11] MEDS ORDERED: NON-FORMULARY MEDICATION 1 EACH EACH (Ipratropium/Albuterol Sulfate 120 PUFF Inhaler) IH PRN (13:40)
[2022-08-11] MEDS ORDERED: Ipratropium 1 PUFF INHALER IH PRN (14:07)
[2022-08-11] MEDS: Isosorbide MONOnitrate (24 HR) 60 MG TAB.ER.24H PO SCH (14:10)
[2022-08-11] MEDS: *HR* Amiodarone 200 MG TABLET PO SCH (14:10)
[2022-08-11] MEDS: carvediloL 25 MG TABLET PO SCH (16:32)
[2022-08-11] MEDS: *HR* OxyCODONE Immed Rel 15 MG TABLET PO PRN ×2 (16:32→21:08)
[2022-08-11] MEDS: Apixaban 5 MG TABLET PO SCH (20:44)
[2022-08-11] MEDS: Magnesium Oxide 400 MG TABLET PO SCH (20:45)
[2022-08-11] MEDS ORDERED: Vancomycin 1,500 MG/265 ML IV.SOLN IVPB SCH (22:00)
[2022-08-11] MEDS: Budesonide/Formoterol 160/4.5 1 PUFF INH IH SCH (22:14)
[2022-08-12] MEDS: *HR* OxyCODONE Immed Rel 15 MG TABLET PO PRN ×5 (01:56→20:15)
[2022-08-12 02:53] LABS: Basophils % 0.7 %; Eosinophils # 0.1 K/mcL (0.0-0.6); Hematocrit 30.8 % (37.5-50.1); Hemoglobin 9.8 g/dL (12.9-16.9); Immature Granulocytes % 0.8 % (0-4); Lymphocytes % 15.9 %; Mean Corpuscular HGB Conc 31.8 g/dL (31.6-35.5); Mean Corpuscular Hemoglobin 27.2 pg (28.0-33.3); Mean Corpuscular Volume 85.6 fL (83.0-100.0); Mean Platelet Volume 10.7 fL (9.4-12.4); Monocytes # 0.5 K/mcL (0.0-1.3); Neutrophils # 4.4 K/mcL (1.6-8.9); Platelet Count 175 K/mcL (140-400); Red Cell Distribution Width 15.3 % (11.5-14.5); Segmented Neutrophils % 72.6 %; White Blood Count 6.1 K/mcL (4.3-11.1)
[2022-08-12 03:14] LABS: Calcium 8.5 mg/dL (8.6-10.3); Magnesium 1.9 mg/dL (1.6-2.6); Potassium 3.8 mEq/L (3.5-5.1)
[2022-08-12] MEDS: 0.9 % Sodium Chloride 1,000 ML IVC SCH (05:09)
[2022-08-12] MEDS: Budesonide/Formoterol 160/4.5 1 PUFF INH IH SCH ×2 (07:31→20:10)
[2022-08-12] MEDS: carvediloL 25 MG TABLET PO SCH ×2 (08:11→16:32)
[2022-08-12] MEDS: *HR* Amiodarone 200 MG TABLET PO SCH (08:12)
[2022-08-12] MEDS: Apixaban 5 MG TABLET PO SCH ×2 (08:12→20:13)
[2022-08-12] MEDS: Magnesium Oxide 400 MG TABLET PO SCH ×2 (08:13→20:14)
[2022-08-12] MEDS: Isosorbide MONOnitrate (24 HR) 60 MG TAB.ER.24H PO SCH (08:13)
[2022-08-12] MEDS: Cholecalciferol (D-3) 1,000 UNIT (25MCG) TABLET PO SCH (08:13)
[2022-08-12] MEDS: Insulin LISPRO 300 UNITS/3 ML VIAL SUBQ SCH ×3 (08:22→16:31)
[2022-08-12] MEDS ORDERED: EPLERENONE 50 MG PO SCH (09:00)
[2022-08-12] MEDS: CeFAZolin 2,000 MG/120 ML BAG IVPB SCH ×2 (10:43→17:53)
[2022-08-12] MEDS ORDERED: Vancomycin 1,750 MG/517.5 ML IV.SOLN IVPB SCH (23:00)
[2022-08-13] MEDS: *HR* OxyCODONE Immed Rel 15 MG TABLET PO PRN ×3 (00:23→09:52)
[2022-08-13] MEDS: CeFAZolin 2,000 MG/120 ML BAG IVPB SCH ×2 (02:00→10:16)
[2022-08-13] MEDS: Insulin LISPRO 300 UNITS/3 ML VIAL SUBQ SCH ×3 (03:17→11:31)
[2022-08-13 07:23] VITALS: BP 121/71; PULSE 71; TEMP 98; O2SAT 95
[2022-08-13] MEDS: Budesonide/Formoterol 160/4.5 1 PUFF INH IH SCH (07:29)
[2022-08-13] MEDS: carvediloL 25 MG TABLET PO SCH (08:07)
[2022-08-13] MEDS: *HR* Amiodarone 200 MG TABLET PO SCH (10:17)
[2022-08-13] MEDS: Isosorbide MONOnitrate (24 HR) 60 MG TAB.ER.24H PO SCH (10:17)
[2022-08-13] MEDS: Cholecalciferol (D-3) 1,000 UNIT (25MCG) TABLET PO SCH (10:17)
[2022-08-13] MEDS: Magnesium Oxide 400 MG TABLET PO SCH (10:18)
[2022-08-13] MEDS: Apixaban 5 MG TABLET PO SCH (10:18)
== END 2022-08-13 11:41 | disposition home or self-care (01) | DRG 603 ==
LOC: 3ANU 18:40 → EMEROOARM 18:40 → SUATTDRO 23:15 → 3ANU 23:45
PROVIDERS: ADMIT Internal Medicine; ATTEND Family Medicine